=== PATIENT | female | born 1970 | race Caucasian/White ===

== ENCOUNTER 2023-04-17 14:50 | Outpatient (CLI) | payer BC, SELFPAY | END 2023-04-17 14:51 | disposition home or self-care (01) | PROVIDERS: PCP Family Medicine; Visit Provider Family Medicine | DX: Z00.00 Encounter for general adult medical examination without abnormal findings (principal); E03.9 Hypothyroidism, unspecified; D64.9 Anemia, unspecified; G89.29 Other chronic pain; Z13.6 Encounter for screening for cardiovascular disorders | CPT/HCPCS: 80053; 80061; 84443 ==

== ENCOUNTER 2023-05-07 13:27 | Outpatient (CLI) | payer BC, SELFPAY | END 2023-05-07 13:28 | disposition home or self-care (01) | LOC: NFLDREF 05-08 18:29 | PROVIDERS: PCP Family Medicine; Referring Provider Family Medicine; Visit Provider Family Medicine | DX: Z13.6 Encounter for screening for cardiovascular disorders (principal); Z13.1 Encounter for screening for diabetes mellitus | CPT/HCPCS: 80061 ==

== ENCOUNTER 2023-08-28 13:25 | Outpatient (CLI) | payer BC, SELFPAY | END 2023-08-28 13:26 | disposition home or self-care (01) | PROVIDERS: PCP Family Medicine; Visit Provider Family Medicine | DX: E03.9 Hypothyroidism, unspecified (principal); R53.83 Other fatigue; N95.1 Menopausal and female climacteric states | CPT/HCPCS: 84146; 84443 ==

== ENCOUNTER 2023-09-07 14:28 | Emergency (ER) | payer BC, SELFPAY ==
[2023-09-07 14:32] VITALS: BP 135/86; PULSE 79; RESP 18; TEMP 36.4; O2SAT 99; BMI 21.9
--- NOTE | 2023-09-07 15:10 | ED_ITS ---
HPI - General Adult General Date Seen: 09/07/23 Chief complaint: Ear/Nose/Throat Problem Stated complaint: Possible sinus infection Time Seen by Provider: 09/07/23 14:41 History of Present Illness HPI narrative: This is a 53-year-old female with a past medical history of pneumothorax as a 19-year-old, upper story infections, hyperlipidemia, osteoarthritis, asthma, anxiety, who presents to the ER today for facial pain, sinus drainage, sore throat, cough. She has been sick for about 8 or 10 days. She 1st had mild constitutional symptoms after she had her pneumonia shot, roughly 9 or 10 days ago. She has had mild upper respiratory symptoms after that. Beginning 3 days ago on , , she has had more serious sinus drainage, bilateral facial pain. Also a sore throat. She has had a couple of sores on the right side of her tongue. She has not had any high fever. She has had a cough. No vomiting or diarrhea. She had a negative at home coronavirus test. She has no known sick exposures. 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 He requires nearly round the clock care by her. She went to the emergency department at [facility] [place] on . They apparently did a check. They told her that she had wheezing in her left lung but that otherwise she was clear. They did a chest x-ray was negative for pneumonia. She was told that her symptoms are probably viral in that she should pursue supportive care. Since that visit she has had ongoing symptoms. She has developed right ear pain. She has worsening facial pain and increasing drainage from her sinuses. No epistaxis. No bad headache. No neck stiffness. No vomiting or diarrhea. No new rash. In the past she has had sinus infection similar to this and they have not gotten better with supportive care. She has required treat with antibiotics. She says in the past she has actually required 2 Z-Chuck to get better. Related Data Home Medications Medication Instructions Recorded Confirmed albuterol sulfate 90 mcg/actuation 2 inhalation PRN 11/27/22 08/28/23 aerosol inhaler aspirin 81 mg tablet,delayed 162 mg PO QDAY 07/25/23 09/07/23 release (Adult Low Dose Aspirin) Previous Rx's Medication Instructions Recorded valacyclovir 1 gram tablet 1,000 mg PO QDAY 90 days #90 tabs 04/17/23 levothyroxine 50 mcg tablet 50 mcg PO QDAY #90 tabs 04/18/23 estradiol 1 mg tablet See Rx Instructions PO QDAY #30 08/28/23 tabs pregabalin 25 mg capsule 25 mg PO QDAY #30 caps 08/28/23 Allergies Allergy/AdvReac Type Severity Reaction Status Date / Time No Known Drug Allergies Allergy Verified 08/28/23 13:07 [facility] Medical History (Updated 09/07/23 @ 15:10 by Alfonso Light MD) Polyp of colon ?K63.5 - Polyp of colon (ICD-10) Chest pain ?R07.9 - Chest pain, unspecified (ICD-10) Primary osteoarthritis, right wrist ?M19.031 - Primary osteoarthritis, right wrist (ICD-10) Encounter for pre-operative examination ?Z01.818 - Encounter for other preprocedural examination (ICD-10) Surgical History (Updated 07/10/23 @ 14:25 by Jalyn Ovalle) History of surgery on lower extremity (12/31/18) ?Z98.890 - Other specified postprocedural states (ICD-10) H/O arthroscopy of left knee ?Z98.890 - Other specified postprocedural states (ICD-10) S/P excisional debridement (01/06/06) ?Z98.890 - Other specified postprocedural states (ICD-10) History of total hysterectomy with bilateral salpingo-oophorectomy (BSO) (08/06/16) ?Z90.710 - Acquired absence of both cervix and uterus (ICD-10) ?Z90.722 - Acquired absence of ovaries, 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) ?Z90.79 - Acquired absence of other genital organ(s) (ICD-10) Status post wrist surgery (2018) ?Z98.890 - Other specified postprocedural states (ICD-10) Status post arthroscopy of right knee ?Z98.890 - Other specified postprocedural states (ICD-10) Status post abdominoplasty (03/19/10) ?Z98.890 - Other specified postprocedural states (ICD-10) History of dilation and curettage (01/12/13) ?Z98.890 - Other specified postprocedural states (ICD-10) Family History (Updated 07/16/22 @ 14:18 by Diane Jiménez ~ PSR) Maternal Grandmother Stroke Diabetes Heart disease Mother Mental disor NEC oth dis Sister Mental disor NEC oth dis Social History (Updated 07/10/23 @ 14:12 by Toyin Braga ~ INDUSTRIAL REAL ESTATE AGENT, INDUSTRIAL REAL ESTATE AGENT) Narrative: Smoker 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 Smoking Status: Current every day smoker What tobacco products do you use: cigarettes Smoking packs per day: 0.5 Smoking cigarettes per day: 10.0 Do you use any of these nicotine containing products: None Second hand tobacco smoke exposure: No How often do you have a drink containing alcohol: 2-3 times a week How many standard drinks containing alcohol do you have on a typical day: 1 or 2 How often do you have six or more drinks on one occasion: Never AUDIT-C Alcohol total score: 3 Non-prescribed substance use: denies use Little interest or pleasure in doing things: nearly every day Feeling down, depressed, or hopeless: nearly every day service: No Exam Narrative: Exam Narrative: Constitutional: Appears well-developed and well-nourished. Alert. Conversant. Non toxic. HENT: Head: Atraumatic. No depressed skull fracture, Raccoon Eyes, Banks's sign, or hemotympanum. Face normal. Right ear: Canal normal. Mastoid normal. There is a small amount of fluid behind the eardrum. The fluid is opaque but there is no erythema or bulging. TM appears retracted Left ear: Canal and mastoid normal. There is a small amount of clear fluid behind her eardrum. No erythema or bulging Nose: No purulent rhinorrhea. No epistaxis. She does appear to have inflamed mucosal linings in her sinuses. Mouth/Throat: Oral mucosa is clear and moist. no trismus. Pharynx normal. Tonsils symmetric. No tonsillar enlargement, erythema, or exudate. She has a couple small vesicles along the right lateral border of her tongue. Eyes: Conjunctivae normal. EOM normal. Pupils equal, round, and reactive to light. No scleral icterus. Neck: Normal range of motion. Neck supple. No tracheal deviation present. Cardiovascular: Normal rate, regular rhythm. No gallop. No friction rub. No murmur heard. Symmetric radial artery pulses Pulmonary/Chest: Occasional cough. Effort normal. No stridor. No respiratory distress. No wheezes. No rales. No rhonchi . No tenderness. Abdominal: Soft. No distension. No mass. No tenderness. No rebound. No guarding. Musculoskeletal: RUE: Normal range of motion. No tenderness. No deformity LUE: Normal range of motion. No tenderness. No deformity RLE: Normal range of motion. No edema. No tenderness. No deformity LLE: Normal range of motion. No edema. No tenderness. No deformity Lymph: No cervical adenopathy. Neurological: Alert and oriented to person, place, and time. Normal strength. CN II-VII intact. No sensory deficit. GCS eye subscore is 4. GCS verbal subscore is 5. GCS motor subscore is 6. Normal coordination Skin: Skin is warm and dry. No rash noted. No pallor. Normal capillary refill. Psychiatric: Normal mood. Normal affect. Const: Vital Signs, click to edit/add: Vital Signs - 24 hr 09/07/23 14:32 Temperature 97.6 F Pulse Rate [Pulse Oximeter] 79 Respiratory Rate 18 Blood [facility] 135/86 Pulse Oximetry 99 Oxygen Delivery Me thod Room Air Course Vital Signs Vital signs: Initial Vital Signs Temperature 97.6 F 09/07/23 14:32 Temperature Source Temporal Artery Scan 09/07/23 14:32 Pulse Rate 79 09/07/23 14:32 Respiratory Rate 18 09/07/23 14:32 Blood Pressure 135/86 09/07/23 14:32 Blood Pressure Mean 102 09/07/23 14:32 Blood Pressure Position Sitting 09/07/23 14:32 Pulse Oximetry 99 09/07/23 14:32 Oxygen Delivery Method Room Air 09/07/23 14:32 Vital Signs Temperature 97.6 F 09/07/23 14:32 Pulse Rate 79 09/07/23 14:32 Respiratory Rate 18 09/07/23 14:32 Blood Pressure 135/86 09/07/23 14:32 Pulse Oximetry 99 09/07/23 14:32 Oxygen Delivery Method Room Air 09/07/23 14:32 Temperature 97.6 F 09/07/23 14:32 Pulse Rate 79 09/07/23 14:32 Respiratory Rate 18 09/07/23 14:32 Blood Pressure 135/86 09/07/23 14:32 Pulse Oximetry 99 09/07/23 14:32 Oxygen Delivery Method Room Air 09/07/23 14:32 Medical Decision Making MDM Narrative Medical decision making narrative: This patient presented with signs and symptoms of upper respiratory infection and possible sinusitis. She has already had negative coronavirus testing. She had a negative chest x-ray for pneumonia 3 days ago, on . Her nasal and facial symptoms are worsening since then. Based on history and exam, I feel the cause of sinusitis is most likely bacterial. Antibiotics are indicated due to severity of symptoms at the onset of illness and acute worsening of symptoms. Evaluation today did not show signs of intracranial complication of sinusitis, facial cellulitis or fungal sinusitis. Patient has normal mental status, no proptosis, periorbital edema, CN palsy. No immunosuprression. 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 Fortunately he is not sick. We will treat her with a course of antibiotics-doxycycline 100 mg b.i.d. for 10 days prescribed through [facility]. She says in the past she has done well with Azithromycin. However given current resistance patterns, would hold off on Z- Chuck. The patient was given instructions to follow up with primary care in 3-5 days. Instructions for symptomatic care were discussed. Precautions for return to the ER reviewed. Discharge Plan Discharge Clinical Impression: Acute middle ear effusion, URI (upper respiratory infection), Sinusitis Patient Disposition: Home, Self-Care Condition: Stable Instructions: Sinusitis (ED), Upper Respiratory Infection (ED) Additional Instructions: As we discussed, please come back to the ER right away if you have worsening symptoms especially trouble breathing, chest pain, high fever, severe headache, vomiting, or any concerns. If you not completely improved within 2-3 days, please return to the ER or see your doctor for recheck. Prescriptions: No Action valacyclovir 1 gram tablet 1,000 mg PO QDAY 90 Days Qty: 90 1RF Rx Instructions: For treatment of suppression estradiol 1 mg tablet See Rx Instructions PO QDAY Qty: 30 1RF Rx Instructions: take 0.5mg daily x 2wks, if significant symptoms continue, increase to 1mg daily pregabalin 25 mg capsule 25 mg PO QDAY Qty: 30 1RF albuterol sulfate 90 mcg/actuation HFA aerosol inhaler 2 inhalation PRN aspirin [Adult Low Dose Aspirin] 81 mg tablet,delayed release (DR/EC) 162 mg PO QDAY levothyroxine 50 mcg tablet 50 mcg PO QDAY Qty: 90 1RF Follow Up/Referrals: Ashley Moreno DO [Primary Care Provider] - Stand Alone Forms: [employer] Info Instructions
== END 2023-09-07 15:30 | disposition home or self-care (01) ==
LOC: ED 15:29
PROVIDERS: Emergency Provider Emergency Medicine; PCP Family Medicine
DX: H92.03 Otalgia, bilateral (principal); J06.9 Acute upper respiratory infection, unspecified; J32.9 Chronic sinusitis, unspecified
CPT/HCPCS: 99282; 99283

== ENCOUNTER 2023-09-11 14:31 | Emergency (ER) | payer BC, SELFPAY ==
[2023-09-11 14:39] VITALS: BP 106/76; PULSE 94; RESP 18; TEMP 36.7; O2SAT 97; BMI 22.6
--- NOTE | 2023-09-11 14:56 | ED.GENADULT ---
HPI - General Adult General Time Seen by Provider: 14:56 Date Seen: 09/11/23 Chief complaint: Ear/Nose/Throat Problem Stated complaint: Sinus/upper respiratory infection, chest tightness Time Seen by Provider: 09/11/23 14:41 Source: patient Mode of arrival: ambulatory Limitations: no limitations History of Present Illness HPI narrative: Pily is a 53-year-old female past medical history includes osteoarthritis, hyperlipidemia, hypothyroidism, anxiety, palpitations presents emergency department via private car with sinus-upper respiratory infection. Patient states symptoms have been ongoing since August 19, this includes headache, sinus congestion, postnasal drip, ear pain and sore throat. She did not take any COVID test at home. She was seen emerged department at [facility] for some left-sided chest pain associated with her symptoms, chest x-ray was clear. Patient does have a history of a pneumothorax when she was 19 years of age. She was seen here again on 09/07, placed on doxycycline 100 mg b.i.d. for her related symptoms. Middle ear effusion and sinus infection, previously she has to take Azithromycin to clear symptoms. She continues have this intermittent left-sided chest pain. She had the pain when she was seen at [facility] on . She does have follow-up with Cardiology, where a Holter monitor, and further testing. This atypical chest pain has been going on for the last 3-4 months. Nonpleuritic. She does have associated shortness of breath and a mild cough which is nonproductive, she denies any fevers or chills. 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 Patient has minimal time to stay in the emergency department since her daughter is watching her . Related Data Home Medications Medication Instructions Recorded Confirmed albuterol sulfate 90 mcg/actuation 2 inhalation PRN 11/27/22 08/28/23 aerosol inhaler aspirin 81 mg tablet,delayed 162 mg PO QDAY 07/25/23 09/07/23 release (Adult Low Dose Aspirin) Previous Rx's Medication Instructions Recorded valacyclovir 1 gram tablet 1,000 mg PO QDAY 90 days #90 tabs 04/17/23 levothyroxine 50 mcg tablet 50 mcg PO QDAY #90 tabs 04/18/23 estradiol 1 mg tablet See Rx Instructions PO QDAY #30 08/28/23 tabs pregabalin 25 mg capsule 25 mg PO QDAY #30 caps 08/28/23 Allergies Allergy/AdvReac Type Severity Reaction Status Date / Time No Known Drug Allergies Allergy Verified 08/28/23 13:07 Review of Systems Status of ROS: Reports: 10 or more systems reviewed and unremarkable except as noted in History and below [facility] Medical History Polyp of colon ?K63.5 - Polyp of colon (ICD-10) Chest pain ?R07.9 - Chest pain, unspecified (ICD-10) Primary osteoarthritis, right wrist ?M19.031 - Primary osteoarthritis, right wrist (ICD-10) Encounter for pre-operative examination ?Z01.818 - Encounter for other preprocedural examination (ICD-10) Surgical History (Updated 07/10/23 @ 14:25 by Jalyn Ovalle) History of surgery on lower extremity (12/31/18) ?Z98.890 - Other specified postprocedural states (ICD-10) H/O arthroscopy of left knee ?Z98.890 - Other specified postprocedural states (ICD-10) S/P excisional debridement (01/06/06) ?Z98.890 - Other specified postprocedural states (ICD-10) History of total hysterectomy with bilateral salpingo-oophorectomy (BSO) (08/06/16) ?Z90.710 - Acquired absence of both cervix and uterus (ICD-10) ?Z90.722 - Acquired absence of ovaries, 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) ?Z90.79 - Acquired absence of other genital organ(s) (ICD-10) Status post wrist surgery (2018) ?Z98.890 - Other specified postprocedural states (ICD-10) Status post arthroscopy of right knee ?Z98.890 - Other specified postprocedural states (ICD-10) Status post abdominoplasty (03/19/10) ?Z98.890 - Other specified postprocedural states (ICD-10) History of dilation and curettage (01/12/13) ?Z98.890 - Other specified postprocedural states (ICD-10) Family History (Updated 10/04/22 @ 14:18 by Diane Karels ~ PSR) Maternal Grandmother Stroke Diabetes Heart disease Mother Mental disor NEC oth dis Sister Mental disor NEC oth dis Social History (Updated 07/10/23 @ 14:12 by Toyin Braga ~ ASPHALT COATER, ASPHALT [employer]ATER) Narrative: 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 Smoking Status: Current every day smoker What tobacco products do you use: cigarettes Smoking packs per day: 0.5 Smoking cigarettes per day: 10.0 Do you use any of these nicotine containing products: None Second hand tobacco smoke exposure: No How often do you have a drink containing alcohol: 2-3 times a week How many standard drinks containing alcohol do you have on a typical day: 1 or 2 How often do you have six or more drinks on one occasion: Never AUDIT-C Alcohol total score: 3 Non-prescribed substance use: denies use Little interest or pleasure in doing things: nearly every day Feeling down, depressed, or hopeless: nearly every day service: No Exam Narrative: Exam Narrative: General: No obvious distress sitting comfortably HEENT: Tympanic membranes within normal limits bilaterally, oropharynx, shows mild post oropharyngeal erythema, no exudate, uvula midline No submandibular adenopathy. Nares are clear, turbinates show mild inflammation. Rhinorrhea is clear. Neck: Supple full range of motion Lungs: Clear to auscultation bilaterally, no stridor, wheezing, no rales or rhonchi, no increased work of breathing Heart; normal sinus rhythm, S1-S2 Abdomen: Soft nontender Muscle skeletal: Nontender to palpation left anterior chest Neuro: Alert awake and oriented x3 Const: Vital Signs, click to edit/add: Vital Signs - 24 hr 09/11/23 14:39 Temperature 98.1 F Pulse Rate [Pulse Oximeter] 94 Respiratory Rate 18 Blood Pressure [Ri ght Upper Arm] 106/76 Pulse Oximetry 97 Oxygen Delivery Me thod Room Air Course Course ED Course: AIDET performed. Vitals are stable at this time, workup will includes COVID/influenza A/B/RSV nasopharyngeal swab, patient has atypical chest pain is chronic, however did offer a repeat chest x-ray, EKG and point of care troponinI, patient declined at this time due to time constraints, risks explained she understands, she has proper follow-up with Cardiology, she has responded better with azithromycin in the past for her upper respiratory symptoms and sinusitis. Differential diagnosis include viral upper respiratory illness, pneumonia, strep throat illness, bronchitis, asthma, reactive airway disease, chronic cough, medication side effects, sinusitis, allergic rhinitis, GERD, as well as all etiologies. Reevaluation(s) Time of Reevaluation #1: 15:40 Reevaluation #1: Viral nasopharyngeal swabs are negative, prescription for azithromycin(Z-chuck) sent to her pharmacy with a refill, she should follow up with her primary care provider in the next 7-10 days and cardiology as scheduled, return precautions given. Vital Signs Vital signs: Initial Vital Signs Temperature 98.1 F 09/11/23 14:39 Temperature Source Temporal Artery Scan 09/11/23 14:39 Pulse Rate 94 09/11/23 14:39 Pulse Rhythm Regular 09/11/23 14:39 Respiratory Rate 18 09/11/23 14:39 Blood Pressure 106/76 09/11/23 14:39 Blood Pressure Mean 86 09/11/23 14:39 Blood Pressure Position Sitting 09/11/23 14:39 Pulse Oximetry 97 09/11/23 14:39 Oxygen Delivery Method Room Air 09/11/23 14:39 Vital Signs Temperature 98.1 F 09/11/23 14:39 Pulse Rate 94 09/11/23 14:39 Respiratory Rate 18 09/11/23 14:39 Blood Pressure 106/76 09/11/23 14:39 Pulse Oximetry 97 09/11/23 14:39 Oxygen Delivery Method Room Air 09/11/23 14:39 Temperature 98.1 F 09/11/23 14:39 Pulse Rate 94 09/11/23 14:39 Respiratory Rate 18 09/11/23 14:39 Blood Pressure 106/76 09/11/23 14:39 Pulse Oximetry 97 09/11/23 14:39 Oxygen Delivery Method Room Air 09/11/23 14:39 Discharge Plan Discharge Clinical Impression: Sinus congestion, Upper respiratory infection Patient Disposition: Home, Self-Care Condition: Improved Instructions: Upper Respiratory Infection (ED), Cold Symptoms (ED) Additional Instructions: To take azithromycin(Z-Chuck) over the next 5 days as instructed, can repeat using refill sent to the pharmacy, stop the Doxycycline, can use [id number] Afrin 1-2 sprays per nostril for nasal congestion over the next few days, to follow-up with primary care provider as scheduled. Return if worsening symptoms. Activity Level: No Restrictions Prescriptions: No Action valacyclovir 1 gram tablet 1,000 mg PO QDAY 90 Days Qty: 90 1RF Rx Instructions: For treatment of suppression estradiol 1 mg tablet See Rx Instructions PO QDAY Qty: 30 1RF Rx Instructions: take 0.5mg daily x 2wks, if significant symptoms continue, increase to 1mg daily pregabalin 25 mg capsule 25 mg PO QDAY Qty: 30 1RF albuterol sulfate 90 mcg/actuation HFA aerosol inhaler 2 inhalation PRN aspirin [Adult Low Dose Aspirin] 81 mg tablet,delayed release (DR/EC) 162 mg PO QDAY levothyroxine 50 mcg tablet 50 mcg PO QDAY Qty: 90 1RF Follow Up/Referrals: Ashley Moreno DO [Primary Care Provider] - Stand Alone Forms: [employer] Info Instructions
[2023-09-11 15:35] LABS: PCR FLU A Negative PCR FLU A (Negative); PCR FLU B Negative PCR FLU B (Negative); PCR RSV Negative PCR RSV (Negative)
[2023-09-11 15:36] LABS: SARS PCR* Negative SARS-CoV-2 (Negative)
== END 2023-09-11 16:04 | disposition home or self-care (01) ==
LOC: ED 15:38
PROVIDERS: Emergency Provider Student in an Organized Health Care Education/Training Program; PCP Family Medicine
DX: J06.9 Acute upper respiratory infection, unspecified (principal); J34.89 Other specified disorders of nose and nasal sinuses
CPT/HCPCS: 87631; 99283; 99284

== ENCOUNTER 2023-10-03 08:00 | Outpatient (CLI) | payer BC, SELFPAY | END 2023-10-03 08:01 | disposition home or self-care (01) | LOC: NFLDREF 10-05 23:53 | PROVIDERS: PCP Family Medicine; Referring Provider Family Medicine; Visit Provider Family Medicine | DX: R19.7 Diarrhea, unspecified (principal) | CPT/HCPCS: 87045; 87046; 87427 ==

== ENCOUNTER 2023-12-15 13:30 | Outpatient (CLI) | payer BC, SELFPAY ==
--- NOTE | 2023-12-15 13:40 | MM_ITS ---
Patient: OSVALDO SANTOS Facility:?[facility] Patient ID:?[id number] Site Patient ID:?[id number]. Site :?[id number] Study:?XRay-Breast Bilateral 3D W/CAD-12/15/2023 2:16:53 PM Ordering Physician:?Amna Jones Final Report: BILATERAL SCREENING MAMMOGRAM WITH COMPUTER-AIDED DETECTION AND TOMOSYNTHESIS TECHNIQUE: CC and MLO views were obtained. These mammographic images have been obtained using full-field digital technique. These mammographic images were interpreted with the benefit of computer-aided detection. Breast Tomosynthesis was used in this interpretation. COMPARISON FILM: 08/07/17, 12/03/12, 04/20/10. FINDINGS: The breasts are extremely dense, which lowers the sensitivity of mammography. IMPRESSION: There is no radiographic evidence for malignancy. ASSESSMENT: BI-RADS Category 1: Negative RECOMMENDATION: Routine screening mammogram in 1 year. A lay language report of this examination will be provided to the patient. Dom Rivas M.D. Diagnostic Radiologist [email or web address] DSM/sp R& Transcribed: 6:50 p.m. SP/Dictated by: Dom Rivas MD @ 12/16/2023 9:14:00 AM Signed by:?Dom Rivas MD @12/17/2023 5:43:27 AM (Electronic Signature)
== END 2023-12-15 13:31 | disposition home or self-care (01) ==
LOC: MAMMO 13:31
PROVIDERS: PCP Family Medicine; Visit Provider Family Medicine
DX: Z12.31 Encounter for screening mammogram for malignant neoplasm of breast (principal); R92.2 Inconclusive mammogram
CPT/HCPCS: 77063; 77067

== ENCOUNTER 2023-12-27 14:56 | Emergency (ER) | payer BC, SELFPAY ==
[2023-12-27 15:09] VITALS: BP 181/89; PULSE 78; RESP 18; TEMP 36.3; O2SAT 98; BMI 21.9
--- NOTE | 2023-12-27 15:23 | XR_ITS ---
Patient: OSVALDO SANTOS Facility:?[facility] Patient ID:?[id number] Site Patient ID:?[id number]. Site :?[id number] Study:?XRay-Chest 2V-12/27/2023 3:50:14 PM Ordering Physician:DEBORA Final Report: INDICATION: Chest pain TECHNIQUE: Chest 2 views. COMPARISON: Chest x-ray 11/22/2019 FINDINGS: The heart is normal in size. The pulmonary vasculature is within normal limits. The lungs are clear without focal consolidation, pleural effusion or pneumothorax. The bones are unremarkable. IMPRESSION: No acute process. Dictated by Marybeth Campos MD @ 12/27/2023 4:16:59 PM Dictated by: Marybeth Campos MD @ 12/27/2023 16:17:03 Signed by:?Marybeth Campos MD @12/27/2023 4:17:03 PM (Electronic Signature)
--- NOTE | 2023-12-27 15:25 | ED_ITS ---
HPI - General Adult General Date Seen: 12/27/23 <Rjartur Díazram - Last Filed: 12/27/23 16:33> Chief complaint: Chest Pain <Rj Diana Naranjo DO - Last Filed: 12/27/23 16:33> Stated complaint: irregular heartbeat <Rj Naranjo DO - Last Filed: 12/27/23 16:33> Time Seen by Provider: 12/27/23 15:16 <Rj Naranjo DO - Last Filed: 12/27/23 16:33> Source: patient <Rj Naranjo DO - Last Filed: 12/27/23 16:33> Mode of arrival: ambulatory <Rjartur Naranjo - Last Filed: 12/27/23 16:33> Limitations: no limitations <Rj Naranjo DO - Last Filed: 12/27/23 16:33> History of Present Illness HPI narrative: Patient is a 53-year-old female presenting to the emergency department for any regular heart rate and chest pain. She states she has been having issues with irregular heart rate now for the several months. She has been seen Cardiology and had a where about heart monitor. 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 She then was told she needs to do an echo and has been working on getting that scheduled. She knows these past 2 nights she has been having worsening symptoms of these irregular heart rate. She now states thigh regular heart rate seems to have improved but she still is having this discomfort not left upper chest going up to her left neck. This has been going on all night. She was using a home pulse ox check her heart rate and she says it was up into the 130s last night. It has improved now. She does has some tingling sensation in her fingers in toes. Denies fevers, chills, shortness of breath, weakness, numbness, headache, vision changes, abdominal pain. No other concerns noted at this time. <Rj Naranjo DO - Last Filed: 12/27/23 16:33> Related Data Home medications: Home Medications Medication Instructions Recorded Confirmed albuterol sulfate 90 mcg/actuation 2 inhalation PRN 11/27/22 10/16/23 aerosol inhaler aspirin 81 mg tablet,delayed 81 mg PO QDAY 10/02/23 10/16/23 release (Adult Low Dose Aspirin) Previous Rx's Medication Instructions Recorded valacyclovir 1 gram tablet 1,000 mg PO QDAY 90 days #90 tabs 04/17/23 pregabalin 25 mg capsule 25 mg PO QDAY #30 caps 08/28/23 estradiol 1 mg tablet 1 mg PO QDAY #90 tabs 11/10/23 <Rj Naranjo DO - Last Filed: 12/27/23 16:33> Allergies/adverse reactions: Allergies Allergy/AdvReac Type Severity Reaction Status Date / Time No Known Drug Allergies Allergy Verified 10/16/23 13:44 <Rj Naranjo DO - Last Filed: 12/27/23 16:33> Review of Systems Status of ROS: Reports: 10 or more systems reviewed and unremarkable except as noted in History and below <Rj Naranjo DO - Last Filed: 12/27/23 16:33> [facility] Medical History: Medical History Polyp of colon ?K63.5 - Polyp of colon (ICD-10) Chest pain ?R07.9 - Chest pain, unspecified (ICD-10) Primary osteoarthritis, right wrist ?M19.031 - Primary osteoarthritis, right wrist (ICD-10) Encounter for pre-operative examination ?Z01.818 - Encounter for other preprocedural examination (ICD-10) <Rj Naranjo DO - Last Filed: 12/27/23 16:33> Surgical History: Surgical History History of hand surgery ?Z98.890 - Other specified postprocedural states (ICD-10) History of surgery on lower extremity (12/31/18) ?Z98.890 - Other specified postprocedural states (ICD-10) H/O arthroscopy of left knee ?Z98.890 - Other specified postprocedural states (ICD-10) S/P excisional debridement (01/06/06) ?Z98.890 - Other specified postprocedural states (ICD-10) History of total hysterectomy with bilateral salpingo-oophorectomy (BSO) (08/06/16) ?Z90.710 - Acquired absence of both cervix and uterus (ICD-10) ?Z90.722 - Acquired absence of ovaries, 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) ?Z90.79 - Acquired absence of other genital organ(s) (ICD-10) Status post wrist surgery (2018) ?Z98.890 - Other specified postprocedural states (ICD-10) Status post arthroscopy of right knee ?Z98.890 - Other specified postprocedural states (ICD-10) Status post abdominoplasty (03/19/10) ?Z98.890 - Other specified postprocedural states (ICD-10) History of dilation and curettage (01/12/13) ?Z98.890 - Other specified postprocedural states (ICD-10) <Rj Naranjo DO - Last Filed: 12/27/23 16:33> Family History: Family History Maternal Grandmother Stroke Diabetes Heart disease Mother Mental disor NEC oth dis Sister Mental disor NEC oth dis <Rj Naranjo DO - Last Filed: 12/27/23 16:33> Social History: Social History Narrative: 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 Smoking Status: Current every day smoker What tobacco products do you use: cigarettes Smoking packs per day: 0.5 Smoking cigarettes per day: 10.0 Do you use any of these nicotine containing products: None Second hand tobacco smoke exposure: No How often do you have a drink containing alcohol: 2-3 times a week How many standard drinks containing alcohol do you have on a typical day: 1 or 2 How often do you have six or more drinks on one occasion: Never AUDIT-C Alcohol total score: 3 Non-prescribed substance use: denies use Little interest or pleasure in doing things: nearly every day Feeling down, depressed, or hopeless: nearly every day service: No <Rj Naranjo DO - Last Filed: 12/27/23 16:33> Exam Narrative: Exam Narrative: Const: Well-nourished, Well-developed, in mild distress Eyes: PERRL, no conjunctival injection, and symmetrical lids HENT: Atraumatic external nose and ears. Moist mucous membranes. Neck: Symmetric, trachea midline, No thyromegaly. CVS: RRR, No murmurs or gallops. Peripheral pulses 2+ and equal in all extremities RESP: Unlabored respiratory effort. Clear to auscultation bilaterally. GI: Nontender/Nondistended, No rebound or guarding. MSK:Extremities w/o deformity, Normal Active ROM Skin: Warm, Dry. No rashes or lesions. Neuro: Normal Muscle tone, No focal neurological deficits. Psych: Awake, Alert, & Oriented x3. Appropriate mood and affect. <Rj Naranjo DO - Last Filed: 12/27/23 16:33> Const: Vital Signs, click to edit/add: Vital Signs - 24 hr 12/27/23 15:09 Temperature 97.4 F L Pulse Rate [Right Pulse Oximeter] 78 Respiratory Rate 18 Blood Pressure [Ri ght Upper Arm] 181/89 H Pulse Oximetry 98 Oxygen Delivery Me thod Room Air <Rj Naranjo DO - Last Filed: 12/27/23 16:33> Vital Signs, click to edit/add: Vital Signs - 24 hr 12/27/23 15:09 Temperature 97.4 F L Pulse Rate [Right Pulse Oximeter] 78 Respiratory Rate 18 Blood Pressure [Ri ght Upper Arm] 181/89 H Pulse Oximetry 98 Oxygen Delivery Me thod Room Air <Chika Galvin MD - Last Filed: 12/27/23 17:40> Course Course ED Course: I was asked to follow-up on the patient's repeat troponin which was 0. Patient discharged. <Chika Galvin MD - Last Filed: 12/27/23 17:40> Vital Signs Vital signs: Initial Vital Signs Temperature 97.4 F L 12/27/23 15:09 Temperature Source Temporal Artery Scan 12/27/23 15:09 Pulse Rate 78 12/27/23 15:09 Respiratory Rate 18 12/27/23 15:09 Blood Pressure 181/89 H 12/27/23 15:09 Blood Pressure Mean 119 H 12/27/23 15:09 Blood Pressure Position Sitting 12/27/23 15:09 Pulse Oximetry 98 12/27/23 15:09 Oxygen Delivery Method Room Air 12/27/23 15:09 Vital Signs Temperature 97.4 F L 12/27/23 15:09 Pulse Rate 78 12/27/23 15:09 Respiratory Rate 18 12/27/23 15:09 Blood Pressure 181/89 H 12/27/23 15:09 Pulse Oximetry 98 12/27/23 15:09 Oxygen Delivery Method Room Air 12/27/23 15:09 Temperature 97.4 F L 12/27/23 15:09 Pulse Rate 78 12/27/23 15:09 Respiratory Rate 18 12/27/23 15:09 Blood Pressure 181/89 H 12/27/23 15:09 Pulse Oximetry 98 12/27/23 15:09 Oxygen Delivery Method Room Air 12/27/23 15:09 <Rj Naranjo DO - Last Filed: 12/27/23 16:33> Initial Vital Signs Temperature 97.4 F L 12/27/23 15:09 Temperature Source Temporal Artery Scan 12/27/23 15:09 Pulse Rate 78 12/27/23 15:09 Respiratory Rate 18 12/27/23 15:09 Blood Pressure 181/89 H 12/27/23 15:09 Blood Pressure Mean 119 H 12/27/23 15:09 Blood Pressure Position Sitting 12/27/23 15:09 Pulse Oximetry 98 12/27/23 15:09 Oxygen Delivery Method Room Air 12/27/23 15:09 Vital Signs Temperature 97.4 F L 12/27/23 15:09 Pulse Rate 78 12/27/23 15:09 Respiratory Rate 18 12/27/23 15:09 Blood Pressure 181/89 H 12/27/23 15:09 Pulse Oximetry 98 12/27/23 15:09 Oxygen Delivery Method Room Air 12/27/23 15:09 Temperature 97.4 F L 12/27/23 15:09 Pulse Rate 78 12/27/23 15:09 Respiratory Rate 18 12/27/23 15:09 Blood Pressure 181/89 H 12/27/23 15:09 Pulse Oximetry 98 12/27/23 15:09 Oxygen Delivery Method Room Air 12/27/23 15:09 <Chika Galvin MD - Last Filed: 12/27/23 17:40> Medical Decision Making MDM Narrative Medical decision making narrative: Patient is a 53 old female presenting to emergency department for chest pain and a rapid heart rate. She states was in the 130s at home which was seen on a pulse ox so this is likely accurate. She still having some chest pain that started last night the same time as the rapid heart rate. Does not have any short of breath. PE seems unlikely but I will evaluate her for ACS and heart arrhythmias. Will order a CBC, BMP, magnesium, COVID/flu/RSV, troponin, EKG. EKG showed no concerning findings. Troponin within normal limits. CBC, magnesium, BMP shows no concerning findings. Chest x-ray reviewed by myself and the radiologist shows no concerning findings. She is not currently appear to be Having any irregular heart rate and her lab work so far has been reassuring. We will repeat her troponin and wait for the COVID/flu/RSV to return. Patient signed out to my colleague Dr. Galvin. Expected disposition is to be discharged home. <Rj Naranjo DO - Last Filed: 12/27/23 16:33> Lab Data Labs: Lab Results 12/27/23 12/27/23 12/27/23 Range/Units 15:23 16:00 17:22 WBC 8.37 (4.50-11.00) K/uL RBC 3.86 L (4.00-5.20) m/uL Hgb 13.4 (12.0-16.0) gm/dL Hct 39.3 (33.0-51.0) % MCV 102 H (80-100) fL MCH 35 H (26-34) pg MCHC 34 (32-36) gm/dL RDW Coeff of Joselito 12.5 (11.5-15.5) % Plt Count 282 (140-440) K/uL Neut % (Auto) 59.1 (42.0-72.0) % Lymph % (Auto) 30.6 (20-44) % [place] % (Auto) 6.3 (0.0-11.0) % Eos % (Auto) 3.7 (0.0-7.0) % Baso % (Auto) 0.2 (0.0-3.0) % Neut # (Auto) 4.94 (1.7-7.0) K/uL Lymph # (Auto) 2.56 (0.90-2.90) K/uL [place] # (Auto) 0.50 (0.00-0.90) K/UL Eos # (Auto) 0.31 (0.00-0.50) K/uL Baso # (Auto) 0.02 (0.00-0.30) K/uL Abs Immat Gran (auto) 0.01 (0.00-0.30) K/uL Imm/Tot Granulo (auto) 0.1 % Sodium 135 (135-149) mmol/L Potassium 4.2 (3.6-5.1) mmol/L Chloride 107 (96-114) mmol/L Carbon Dioxide 21 (20-32) mmol/L Anion Gap 7 (7-15) mEq/L BUN 19 (7-30) mg/dL Creatinine 0.6 (0.5-1.5) mg/dL Estimated Creat Clear 105.45 Estimated GFR 107 ml/min Glucose 95 (60-115) mg/dL Calcium 9.4 (8.4-10.6) mg/dL Magnesium 2.1 (1.5-2.6) mg/dL SARS-CoV-2 (PCR) (Negative) Influenza Type A (PCR) (Negative) Influenza Type B (PCR) (Negative) RSV (PCR) (Negative) POC Troponin I 0.00 L 0.00 L (0.01-0.04) ng/ml 12/27/23 Range/Units Unknown WBC (4.50-11.00) K/uL RBC (4.00-5.20) m/uL Hgb (12.0-16.0) gm/dL Hct (33.0-51.0) % MCV (80-100) fL MCH (26-34) pg MCHC (32-36) gm/dL RDW Coeff of Joselito (11.5-15.5) % Plt Count (140-440) K/uL Neut % (Auto) (42.0-72.0) % Lymph % (Auto) (20-44) % [place] % (Auto) (0.0-11.0) % Eos % (Auto) (0.0-7.0) % Baso % (Auto) (0.0-3.0) % Neut # (Auto) (1.7-7.0) K/uL Lymph # (Auto) (0.90-2.90) K/uL [place] # (Auto) (0.00-0.90) K/UL Eos # (Auto) (0.00-0.50) K/uL Baso # (Auto) (0.00-0.30) K/uL Abs Immat Gran (auto) (0.00-0.30) K/uL Imm/Tot Granulo (auto) % Sodium (135-149) mmol/L Potassium (3.6-5.1) mmol/L Chloride (96-114) mmol/L Carbon Dioxide (20-32) mmol/L Anion Gap (7-15) mEq/L BUN (7-30) mg/dL Creatinine (0.5-1.5) mg/dL Estimated Creat Clear Estimated GFR ml/min Glucose (60-115) mg/dL Calcium (8.4-10.6) mg/dL Magnesium (1.5-2.6) mg/dL SARS-CoV-2 (PCR) Negative SARS-CoV-2 (Negative) Influenza Type A (PCR) Negative PCR FLU A (Negative) Influenza Type B (PCR) Negative PCR FLU B (Negative) RSV (PCR) Negative PCR RSV (Negative) POC Troponin I (0.01-0.04) ng/ml <Rj Naranjo, DO - Last Filed: 12/27/23 16:33> Lab Results 12/27/23 12/27/23 12/27/23 Range/Units 15:23 16:00 17:22 WBC 8.37 (4.50-11.00) K/uL RBC 3.86 L (4.00-5.20) m/uL Hgb 13.4 (12.0-16.0) gm/dL Hct 39.3 (33.0-51.0) % MCV 102 H (80-100) fL MCH 35 H (26-34) pg MCHC 34 (32-36) gm/dL RDW Coeff of Joselito 12.5 (11.5-15.5) % Plt Count 282 (140-440) K/uL Neut % (Auto) 59.1 (42.0-72.0) % Lymph % (Auto) 30.6 (20-44) % [place] % (Auto) 6.3 (0.0-11.0) % Eos % (Auto) 3.7 (0.0-7.0) % Baso % (Auto) 0.2 (0.0-3.0) % Neut # (Auto) 4.94 (1.7-7.0) K/uL Lymph # (Auto) 2.56 (0.90-2.90) K/uL [place] # (Auto) 0.50 (0.00-0.90) K/UL Eos # (Auto) 0.31 (0.00-0.50) K/uL Baso # (Auto) 0.02 (0.00-0.30) K/uL Abs Immat Gran (auto) 0.01 (0.00-0.30) K/uL Imm/Tot Granulo (auto) 0.1 % Sodium 135 (135-149) mmol/L Potassium 4.2 (3.6-5.1) mmol/L Chloride 107 (96-114) mmol/L Carbon Dioxide 21 (20-32) mmol/L Anion Gap 7 (7-15) mEq/L BUN 19 (7-30) mg/dL Creatinine 0.6 (0.5-1.5) mg/dL Estimated Creat Clear 105.45 Estimated GFR 107 ml/min Glucose 95 (60-115) mg/dL Calcium 9.4 (8.4-10.6) mg/dL Magnesium 2.1 (1.5-2.6) mg/dL SARS-CoV-2 (PCR) (Negative) Influenza Type A (PCR) (Negative) Influenza Type B (PCR) (Negative) RSV (PCR) (Negative) POC Troponin I 0.00 L 0.00 L (0.01-0.04) ng/ml 12/27/23 Range/Units Unknown WBC (4.50-11.00) K/uL RBC (4.00-5.20) m/uL Hgb (12.0-16.0) gm/dL Hct (33.0-51.0) % MCV (80-100) fL MCH (26-34) pg MCHC (32-36) gm/dL RDW Coeff of Joselito (11.5-15.5) % Plt Count (140-440) K/uL Neut % (Auto) (42.0-72.0) % Lymph % (Auto) (20-44) % [place] % (Auto) (0.0-11.0) % Eos % (Auto) (0.0-7.0) % Baso % (Auto) (0.0-3.0) % Neut # (Auto) (1.7-7.0) K/uL Lymph # (Auto) (0.90-2.90) K/uL [place] # (Auto) (0.00-0.90) K/UL Eos # (Auto) (0.00-0.50) K/uL Baso # (Auto) (0.00-0.30) K/uL Abs Immat Gran (auto) (0.00-0.30) K/uL Imm/Tot Granulo (auto) % Sodium (135-149) mmol/L Potassium (3.6-5.1) mmol/L Chloride (96-114) mmol/L Carbon Dioxide (20-32) mmol/L Anion Gap (7-15) mEq/L BUN (7-30) mg/dL Creatinine (0.5-1.5) mg/dL Estimated Creat Clear Estimated GFR ml/min Glucose (60-115) mg/dL Calcium (8.4-10.6) mg/dL Magnesium (1.5-2.6) mg/dL SARS-CoV-2 (PCR) Negative SARS-CoV-2 (Negative) Influenza Type A (PCR) Negative PCR FLU A (Negative) Influenza Type B (PCR) Negative PCR FLU B (Negative) RSV (PCR) Negative PCR RSV (Negative) POC Troponin I (0.01-0.04) ng/ml <Chika Galvin MD - Last Filed: 12/27/23 17:40> Imaging Data Chest x-ray: Attestation: I have reviewed the pertinent imaging results. <Rj Naranjo DO - Last Filed: 12/27/23 16:33> Radiologist's impression: No acute process. Dictated by Marybeth Campos MD @ 12/27/2023 4:16:59 PM <Rj Naranjo DO - Last Filed: 12/27/23 16:33> ECG Data Attestation: I personally reviewed and interpreted this ECG as follows: <Rj Naranjo DO - Last Filed: 12/27/23 16:33> Prior ECG tracings: available for review <Rj Naranjo DO - Last Filed: 12/27/23 16:33> Interpretation: Normal sinus rhythm with a first-degree AV block, otherwise normal intervals, rate 65 beats per minute, normal axis, no ST or T-wave abnormalities. Appears similar to previous EKG on file other than the new first-degree AV block <Rj Naranjo DO - Last Filed: 12/27/23 16:33> Discharge Plan Discharge Clinical Impression: Atypical chest pain <Rj Naranjo DO - Last Filed: 12/27/23 16:33> Patient Disposition: Home, Self-Care <Rj Naranjo DO - Last Filed: 12/27/23 16:33> Condition: Stable <Rj Naranjo DO - Last Filed: 12/27/23 16:33> Instructions: Chest Pain (ED) <Rj Naranjo DO - Last Filed: 12/27/23 16:33> Additional Instructions: Make sure to follow-up with a distribution engineering technologist to work on getting this echocardiogram scheduled. Return to emergency department for new worsening symptoms <Rj Naranjo DO - Last Filed: 12/27/23 16:33> Prescriptions: No Action valacyclovir 1 gram tablet 1,000 mg PO QDAY 90 Days Qty: 90 1RF Rx Instructions: For treatment of suppression pregabalin 25 mg capsule 25 mg PO QDAY Qty: 30 1RF albuterol sulfate 90 mcg/actuation HFA aerosol inhaler 2 inhalation PRN aspirin [Adult Low Dose Aspirin] 81 mg tablet,delayed release (DR/EC) 81 mg PO QDAY estradiol 1 mg tablet 1 mg PO QDAY Qty: 90 1RF <Rj Naranjo DO - Last Filed: 12/27/23 16:33> Follow Up/Referrals: Amna Jones MD [Primary Care Provider] - <Rj Naranjo DO - Last Filed: 12/27/23 16:33> Stand Alone Forms: My[facility] Info Instructions <Rj Naranjo DO - Last Filed: 12/27/23 16:33>
[2023-12-27 16:11] LABS: Basophils Absolute Auto 0.02 K/uL (0.00-0.30); Basophils Percent Auto 0.2 % (0.0-3.0); Eosinophils Absolute Auto 0.31 K/uL (0.00-0.50); Eosinophils Percent Auto 3.7 % (0.0-7.0); Hematocrit 39.3 % (33.0-51.0); Hemoglobin* 13.4 gm/dL (12.0-16.0); Immature Granulocytes Abs Auto 0.01 K/uL (0.00-0.30); Immature Granulocytes Pct Auto 0.1 %; Lymphocytes Absolute Auto 2.56 K/uL (0.90-2.90); Lymphocytes Percent Auto 30.6 % (20-44); Mean Corpuscular HGB Conc 34 gm/dL (32-36); Mean Corpuscular Hemoglobin 35 pg (26-34); Mean Corpuscular Volume 102 fL (80-100); Monocytes Percent Auto 6.3 % (0.0-11.0); Neutrophils Absolute Auto 4.94 K/uL (1.7-7.0); Neutrophils Percent Auto 59.1 % (42.0-72.0); Platelet Count* 282 K/uL (140-440); RDW Coefficient of Variation % 12.5 % (11.5-15.5); Red Blood Count 3.86 m/uL (4.00-5.20); White Blood Count* 8.37 K/uL (4.50-11.00)
[2023-12-27 16:20] VITALS: BP 135/91; PULSE 77; RESP 25; O2SAT 98
[2023-12-27 16:21] LABS: Slide Review Reflex No
[2023-12-27 16:23] LABS: Chloride* 107 mmol/L (96-114); Sodium* 135 mmol/L (135-149)
[2023-12-27 16:24] LABS: Potassium* 4.2 mmol/L (3.6-5.1)
[2023-12-27 16:26] LABS: Anion Gap 7 mEq/L (7-15); Carbon Dioxide* 21 mmol/L (20-32); Creatinine* 0.6 mg/dL (0.5-1.5); Est. Creatinine Clearance* 105.45; Estimated Glomerular Filt Rate 107 ml/min
[2023-12-27 16:27] LABS: Blood Urea Nitrogen* 19 mg/dL (7-30); Calcium* 9.4 mg/dL (8.4-10.6); Glucose* 95 mg/dL (60-115); Magnesium* 2.1 mg/dL (1.5-2.6)
[2023-12-27 16:52] LABS: PCR FLU A Negative PCR FLU A (Negative); PCR FLU B Negative PCR FLU B (Negative); PCR RSV Negative PCR RSV (Negative); SARS PCR* Negative SARS-CoV-2 (Negative)
[2023-12-27 17:00] VITALS: BP 143/97; PULSE 70; RESP 20; O2SAT 98
[2023-12-27 17:30] VITALS: BP 124/85; PULSE 68; RESP 21; O2SAT 95
[2023-12-27 18:00] VITALS: BP 124/80; PULSE 68; RESP 21; O2SAT 100
== END 2023-12-27 17:56 | disposition home or self-care (01) ==
PROVIDERS: Emergency Provider Student in an Organized Health Care Education/Training Program; PCP Family Medicine
DX: R07.89 Other chest pain (principal)
CPT/HCPCS: 36415; 71046; 80048; 83735; 84484; 85025; 87631; 93005; 99283; 99284; 99285

== ENCOUNTER 2024-01-29 14:02 | Emergency (ER) | payer BC, SELFPAY ==
[2024-01-29 14:08] VITALS: BP 149/98; PULSE 81; RESP 18; TEMP 36.6; O2SAT 98; BMI 22.1
--- NOTE | 2024-01-29 14:23 | ED_ITS ---
HPI - General Adult General Chief complaint: Ear/Nose/Throat Problem Stated complaint: Sinus/ear/throat pain Time Seen by Provider: 01/29/24 14:07 History of Present Illness HPI narrative: Patient is a 53-year-old woman with history of tobacco use who presents with nonproductive cough general malaise 6 chest congestion and sinus congestion. She has had no fevers no chills no night sweats. 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 She states that a Z-Chuck usually helps her and she is not motivated at this time to quit smoking unfortunately. No other concerns have been noted. Related Data Home Medications Medication Instructions Recorded Confirmed albuterol sulfate 90 mcg/actuation 2 inhalation PRN 11/27/22 10/16/23 aerosol inhaler aspirin 81 mg tablet,delayed 81 mg PO QDAY 10/02/23 10/16/23 release (Adult Low Dose Aspirin) amoxicillin 500 mg capsule 1,000 mg PO 3XD 01/29/24 01/29/24 Previous Rx's Medication Instructions Recorded valacyclovir 1 gram tablet 1,000 mg PO QDAY 90 days #90 tabs 04/17/23 pregabalin 25 mg capsule 25 mg PO QDAY #30 caps 08/28/23 estradiol 1 mg tablet 1 mg PO QDAY #90 tabs 11/10/23 Allergies Allergy/AdvReac Type Severity Reaction Status Date / Time No Known Drug Allergies Allergy Verified 10/16/23 13:44 Review of Systems Status of ROS: Reports: 10 or more systems reviewed and unremarkable except as noted in History and below [facility] Medical History Polyp of colon ?K63.5 - Polyp of colon (ICD-10) Chest pain ?R07.9 - Chest pain, unspecified (ICD-10) Primary osteoarthritis, right wrist ?M19.031 - Primary osteoarthritis, right wrist (ICD-10) Encounter for pre-operative examination ?Z01.818 - Encounter for other preprocedural examination (ICD-10) Surgical History History of hand surgery ?Z98.890 - Other specified postprocedural states (ICD-10) History of surgery on lower extremity (12/31/18) ?Z98.890 - Other specified postprocedural states (ICD-10) H/O arthroscopy of left knee ?Z98.890 - Other specified postprocedural states (ICD-10) S/P excisional debridement (01/06/06) ?Z98.890 - Other specified postprocedural states (ICD-10) History of total hysterectomy with bilateral salpingo-oophorectomy (BSO) (08/06/16) ?Z90.710 - Acquired absence of both cervix and uterus (ICD-10) ?Z90.722 - Acquired absence of ovaries, 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) ?Z90.79 - Acquired absence of other genital organ(s) (ICD-10) Status post wrist surgery (2018) ?Z98.890 - Other specified postprocedural states (ICD-10) Status post arthroscopy of right knee ?Z98.890 - Other specified postprocedural states (ICD-10) Status post abdominoplasty (03/19/10) ?Z98.890 - Other specified postprocedural states (ICD-10) History of dilation and curettage (01/12/13) ?Z98.890 - Other specified postprocedural states (ICD-10) Family History Maternal Grandmother Stroke Diabetes Heart disease Mother Mental disor NEC oth dis Sister Mental disor NEC oth dis Social History Narrative: 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 Smoking Status: Current every day smoker What tobacco products do you use: cigarettes Smoking packs per day: 0.5 Smoking cigarettes per day: 10.0 Do you use any of these nicotine containing products: None Second hand tobacco smoke exposure: No How often do you have a drink containing alcohol: 2-3 times a week How many standard drinks containing alcohol do you have on a typical day: 1 or 2 How often do you have six or more drinks on one occasion: Never AUDIT-C Alcohol total score: 3 Non-prescribed substance use: denies use Little interest or pleasure in doing things: nearly every day Feeling down, depressed, or hopeless: nearly every day service: No Exam Narrative: Exam Narrative: EXAM GENERAL: Patient appears comfortable and well. EYES: No scleral icterus. ENT: Tympanic membranes and oropharynx normal. THYROID: no thyroid nodules or thyromegaly. LYMPH: No supraclavicular or cervical lymphadenopathy. SKIN: Visible skin seen during exam normal or with benign process only. EXT: No dependent lower extremity pedal edema. HEART: Regular rate and rhythm with no murmurs, rubs, or gallops. LUNGS: Clear to auscultation bilaterally with no crackles or wheezes. ABD: Soft, non tender, non distended. PSYCH: Good eye contact, speech is not pressured. Const: Vital Signs, click to edit/add: Vital Signs - 24 hr 01/29/24 14:08 Temperature 97.9 F Pulse Rate [Pulse Oximeter] 81 Respiratory Rate 18 Blood Pressure [Ri ght Upper Arm] 149/98 H Pulse Oximetry 98 Oxygen Delivery Me thod Room Air Course Course ED Course: Patient seen and examined. Vital Signs Vital signs: Initial Vital Signs Temperature 97.9 F 01/29/24 14:08 Temperature Source Temporal Artery Scan 01/29/24 14:08 Pulse Rate 81 01/29/24 14:08 Respiratory Rate 18 01/29/24 14:08 Blood Pressure 149/98 H 01/29/24 14:08 Blood Pressure Mean 115 H 01/29/24 14:08 Blood Pressure Position Sitting 01/29/24 14:08 Pulse Oximetry 98 01/29/24 14:08 Oxygen Delivery Method Room Air 01/29/24 14:08 Vital Signs Temperature 97.9 F 01/29/24 14:08 Pulse Rate 81 01/29/24 14:08 Respiratory Rate 18 01/29/24 14:08 Blood Pressure 149/98 H 01/29/24 14:08 Pulse Oximetry 98 01/29/24 14:08 Oxygen Delivery Method Room Air 01/29/24 14:08 Temperature 97.9 F 01/29/24 14:08 Pulse Rate 81 01/29/24 14:08 Respiratory Rate 18 01/29/24 14:08 Blood Pressure 149/98 H 01/29/24 14:08 Pulse Oximetry 98 01/29/24 14:08 Oxygen Delivery Method Room Air 01/29/24 14:08 Medical Decision Making MDM Narrative Medical decision making narrative: Patient is a 53-year-old woman who presents with mild COPD exacerbation. She was counseled on smoking cessation. She has a normal exam and normal vital signs. Did prescribe Z-Chuck as directed and recommend smoking cessation under rest plenty fluids and follow-up with her primary physician as needed. Differential diagnosis includes but not limited to COPD exacerbation pneumonia bronchitis sinusitis viral syndrome. Discharge Plan Discharge Clinical Impression: Bronchitis Patient Disposition: Home, Self-Care Condition: Stable Instructions: Acute Bronchitis (ED) Additional Instructions: Z-Chuck as directed Continue symptomatic care Follow-up with your doctor as needed. Activity Level: No Restrictions Discharge Diet: Regular Prescriptions: No Action valacyclovir 1 gram tablet 1,000 mg PO QDAY 90 Days Qty: 90 1RF Rx Instructions: For treatment of suppression pregabalin 25 mg capsule 25 mg PO QDAY Qty: 30 1RF albuterol sulfate 90 mcg/actuation HFA aerosol inhaler 2 inhalation PRN aspirin [Adult Low Dose Aspirin] 81 mg tablet,delayed release (DR/EC) 81 mg PO QDAY amoxicillin 500 mg capsule 1,000 mg PO 3XD estradiol 1 mg tablet 1 mg PO QDAY Qty: 90 1RF Follow Up/Referrals: Amna Jones MD [Primary Care Provider] - Stand Alone Forms: Remark Info Instructions
== END 2024-01-29 14:44 | disposition home or self-care (01) ==
LOC: ED 14:40
PROVIDERS: Emergency Provider Internal Medicine; PCP Family Medicine
DX: J40 Bronchitis, not specified as acute or chronic (principal)
CPT/HCPCS: 99283

== ENCOUNTER 2024-02-05 15:05 | Emergency (ER) | payer BC, SELFPAY ==
[2024-02-05 15:26] VITALS: BP 163/96; PULSE 70; RESP 16; TEMP 36.8; O2SAT 98; BMI 22.6
--- NOTE | 2024-02-05 15:29 | XR_ITS ---
Patient: OSVALDO SANTOS Facility:?[facility] Patient ID:?[id number] Site Patient ID:?[id number]. Site :?[id number] Study:?XRay-Chest 1V PORTABLE-02/05/2024 3:45:54 PM Ordering Physician:LUCIA Final Report: INDICATION: Cough. TECHNIQUE: Chest 1 views. COMPARISON: December 27, 2023. FINDINGS: Cardiovascular and mediastinum: Heart size and vasculature are normal in caliber and appearance. Lungs and pleural spaces: Lungs are clear. No sign of infiltrate or mass. No sign of pleural effusion. No pneumothorax. Bones and soft tissues: No significant findings. IMPRESSION: No acute findings and no significant changes from the prior exam. Dictated by Jorge Alberto Mustafa MD @ 02/05/2024 3:48:38 PM Signed by:?Jorge Alberto Mustafa MD @02/05/2024 3:48:38 PM (Electronic Signature)
--- NOTE | 2024-02-05 15:33 | ED.GENADULT ---
"HPI - General Adult General Date Seen: 02/05/24 Chief complaint: Cough Stated complaint: bronchitis Time Seen by Provider: 02/05/24 15:33 History of Present Illness HPI narrative: 53-year-old female with a history of bronchitis, mild asthma, dyslipidemia, osteoarthritis, tobacco user (1/2 pack per day), distant history of a pneumothorax at age 19. Review of medical records According to urgent care notes from today indicate that she has 6 week history of persistent, nonproductive cough. She has been on 1st amoxicillin and 2nd Azithromycin over the past 6 weeks. In review of her medical record I saw her last August for facial pain, sinus drainage, sore throat, and cough. She had a middle ear effusion and possibly a sinus infection at that time. Prescribed doxycycline. Return to the ER 4 days later with ongoing nasal congestion. Viral PCR panel negative. Put on Azithromycin. In the ER 12/26 for chest pain. Had negative troponins a cardiac workup in the ER. Seen again in the ER 1 week ago on 01/28. This time for nonproductive cough. Requested and received a prescription for Azithromycin. Patient came to the ER this afternoon after going to the urgent care. She had a negative interaction with the urgent care provider. She tells me that she has probably had her current cough and illness ongoing for about 3 weeks or so. Symptoms have been a cough that tends to be worse after she has been laying down. It is sometimes productive of yellow sputum but mostly nonproductive. She sometimes gets some chest tightness on the left side of her chest. In addition to coughing she is feeling very fatigued. She has has headache. She has had nasal congestion, sinus congestion. Sometimes also sore throat. No vomiting. Low no fever. No known sick exposures. 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 He has not been ill. Related Data Home Medications Medication Instructions Recorded Confirmed albuterol sulfate 90 mcg/actuation 2 inhalation PRN 11/27/22 02/05/24 aerosol inhaler aspirin 81 mg tablet,delayed 81 mg PO QDAY 10/02/23 02/05/24 release (Adult Low Dose Aspirin) Previous Rx's Medication Instructions Recorded valacyclovir 1 gram tablet 1,000 mg PO QDAY 90 days #90 tabs 04/17/23 estradiol 1 mg tablet 1 mg PO QDAY #90 tabs 11/10/23 Allergies Allergy/AdvReac Type Severity Reaction Status Date / Time No Known Drug Allergies Allergy Verified 02/05/24 15:28 [facility] Medical History (Updated 02/05/24 @ 16:32 by Alfonso Light MD) Persistent cough ?R05.3 - Chronic cough (ICD-10) Polyp of colon ?K63.5 - Polyp of colon (ICD-10) Chest pain ?R07.9 - Chest pain, unspecified (ICD-10) Primary osteoarthritis, right wrist ?M19.031 - Primary osteoarthritis, right wrist (ICD-10) Encounter for pre-operative examination ?Z01.818 - Encounter for other preprocedural examination (ICD-10) Surgical History History of hand surgery ?Z98.890 - Other specified postprocedural states (ICD-10) History of surgery on lower extremity (12/31/18) ?Z98.890 - Other specified postprocedural states (ICD-10) H/O arthroscopy of left knee ?Z98.890 - Other specified postprocedural states (ICD-10) S/P excisional debridement (01/06/06) ?Z98.890 - Other specified postprocedural states (ICD-10) History of total hysterectomy with bilateral salpingo-oophorectomy (BSO) (08/06/16) ?Z90.710 - Acquired absence of both cervix and uterus (ICD-10) ?Z90.722 - Acquired absence of ovaries, 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) ?Z90.79 - Acquired absence of other genital organ(s) (ICD-10) Status post wrist surgery (2018) ?Z98.890 - Other specified postprocedural states (ICD-10) Status post arthroscopy of right knee ?Z98.890 - Other specified postprocedural states (ICD-10) Status post abdominoplasty (03/19/10) ?Z98.890 - Other specified postprocedural states (ICD-10) History of dilation and curettage (01/12/13) ?Z98.890 - Other specified postprocedural states (ICD-10) Family History Maternal Grandmother Stroke Diabetes Heart disease Mother Mental disor NEC oth dis Sister Mental disor NEC oth dis Social History Narrative: 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 Smoking Status: Current every day smoker What tobacco products do you use: cigarettes Smoking packs per day: 0.5 Smoking cigarettes per day: 10.0 Do you use any of these nicotine containing products: None Second hand tobacco smoke exposure: No How often do you have a drink containing alcohol: 2-3 times a week How many standard drinks containing alcohol do you have on a typical day: 1 or 2 How often do you have six or more drinks on one occasion: Never AUDIT-C Alcohol total score: 3 Non-prescribed substance use: denies use Little interest or pleasure in doing things: nearly every day Feeling down, depressed, or hopeless: nearly every day service: No Exam Narrative: Exam Narrative: Constitutional: Appears well-developed and well-nourished. Alert. Conversant. Non toxic. HENT: Head: Atraumatic. Nose: Nose normal. Nonpurulent rhinorrhea, mostly from right not Right ear: Mastoid, pinna, canal normal. Clear fluid behind the TM. No erythema or bulging. The left ear: Mastoid, pinna, canal, TM normal. Mouth/Throat: Oral mucosa is clear and moist. no trismus. Pharynx normal. Tonsils symmetric. No tonsillar enlargement, erythema, or exudate. Eyes: Conjunctivae normal. EOM normal. Pupils equal, round, and reactive to light. No scleral icterus. Neck: Normal range of motion. Neck supple. No tracheal deviation present. Cardiovascular: Normal rate, regular rhythm. No gallop. No friction rub. No murmur heard. Symmetric radial artery pulses Pulmonary/Chest: Effort normal. No stridor. No respiratory distress. No wheezes. No rales. No rhonchi . No tenderness. Musculoskeletal: RUE: Normal range of motion. No tenderness. No deformity LUE: Normal range of motion. No tenderness. No deformity RLE: Normal range of motion. No edema. No tenderness. No deformity LLE: Normal range of motion. No edema. No tenderness. No deformity Lymph: No cervical adenopathy. Neurological: Alert and oriented to person, place, and time. Normal strength. CN II-VII intact. No sensory deficit. GCS eye subscore is 4. GCS verbal subscore is 5. GCS motor subscore is 6. Normal coordination Skin: Skin is warm and dry. No rash noted. No pallor. Normal capillary refill. Psychiatric: Normal mood. Normal affect. Const: Vital Signs, click to edit/add: Vital Signs - 24 hr 02/05/24 15:26 Temperature 98.2 F Pulse Rate [Right Pulse Oximeter] 70 Respiratory Rate 16 Blood Pressure [Ri ght Upper Arm] 163/96 H Pulse Oximetry 98 Oxygen Delivery Me thod Room Air Course Vital Signs Vital signs: Initial Vital Signs Temperature 98.2 F 02/05/24 15:26 Temperature Source Temporal Artery Scan 02/05/24 15:26 Pulse Rate 70 02/05/24 15:26 Pulse Rhythm Regular 02/05/24 15:26 Pulse Strength 3+ Normal 02/05/24 15:26 Respiratory Rate 16 02/05/24 15:26 Blood Pressure 163/96 H 02/05/24 15:26 Blood Pressure Mean 118 H 02/05/24 15:26 Blood Pressure Position Sitting 02/05/24 15:26 Pulse Oximetry 98 02/05/24 15:26 Oxygen Delivery Method Room Air 02/05/24 15:26 Vital Signs Temperature 98.2 F 02/05/24 15:26 Pulse Rate 70 02/05/24 15:26 Respiratory Rate 16 02/05/24 15:26 Blood Pressure 163/96 H 02/05/24 15:26 Pulse Oximetry 98 02/05/24 15:26 Oxygen Delivery Method Room Air 02/05/24 15:26 Temperature 98.2 F 02/05/24 15:26 Pulse Rate 70 02/05/24 15:26 Respiratory Rate 16 02/05/24 15:26 Blood Pressure 163/96 H 02/05/24 15:26 Pulse Oximetry 98 02/05/24 15:26 Oxygen Delivery Method Room Air 02/05/24 15:26 Medical Decision Making MDM Narrative Medical decision making narrative: This patient presents for evaluation of cough, nasal congestion, sore throat, headache, fatigue ongoing for the past 3 weeks or so.. . Viral testing is negative for influenza, coronavirus, RSV. There is no signs at this point of serious bacterial infection such as OM, RPA, epiglottitis, ART OBJECTS REPAIRER, strep pharyngitis, pneumonia, sinusitis, meningitis, bacteremia, serious bacterial infection. Given duration of cough we did obtain a chest x-ray and it is clear. No evidence for pneumonia, pneumothorax, pleural effusion. No obvious lung tumors on the chest x-ray. The patient is a smoker and reports that she has been using inhalers and her 's nebulizers at home and they do cause some temporary relief. She is not having any wheezing on my lung exam here in the ER today but suspect is a component of bronchospasm and bronchitis occurring. She is a smoker. Not ready to quit smoking yet. Will put her on prednisone 40 mg daily for 5 days. She also requests a prescription for Zithromax-provided. She is eager for discharge because she has to get home to care for her disabled . She requests [place] meds because she does not have time to go or pharmacy on the way home. Instymeds prescription for prednisone 40 mg daily for 5 days and azithromycin 500 mg, then 250 for 4 more days.. There are no gastrointestinal symptoms at this point and no signs of dehydration. Close followup with primary care physician is indicated. Return to ED for fever > 103, protracted vomiting, confusion, or other worsening. Lab Data Labs: Lab Results 02/05/24 Range/Units 15:24 SARS-CoV-2 (PCR) Negative SARS-CoV-2 (Negative) Influenza Type A (PCR) Negative PCR FLU A (Negative) Influenza Type B (PCR) Negative PCR FLU B (Negative) RSV (PCR) Negative PCR RSV (Negative) Imaging Data Chest x-ray: Attestation: I have reviewed the pertinent imaging results. My impression: No acute infiltrate. No pneumothorax. No pleural effusion. Radiologist's impression: IMPRESSION: No acute findings and no significant changes from the prior exam. Discharge Plan Discharge Clinical Impression: Cough Patient Disposition: Home, Self-Care Condition: Stable Instructions: Acute Cough (ED) Additional Instructions: Please come back to the ER right away if you have worsening cough, worsening chest pain or trouble breathing, high fever, or any concerns. If you are not completely improved within 2-4 days, please recheck with your regular doctor or come back to the ER (or urgent care) for a recheck. Prescriptions: No Action valacyclovir 1 gram tablet 1,000 mg PO QDAY 90 Days Qty: 90 1RF Rx Instructions: For treatment of suppression albuterol sulfate 90 mcg/actuation HFA aerosol inhaler 2 inhalation PRN aspirin [Adult Low Dose Aspirin] 81 mg tablet,delayed release (DR/EC) 81 mg PO QDAY estradiol 1 mg tablet 1 mg PO QDAY Qty: 90 1RF Follow Up/Referrals: Amna Jones MD [Primary Care Provider] - Stand Alone Forms: [facility] | [facility] [employer] Info Instructions"
[2024-02-05 16:13] LABS: PCR FLU A Negative PCR FLU A (Negative); PCR FLU B Negative PCR FLU B (Negative); PCR RSV Negative PCR RSV (Negative); SARS PCR* Negative SARS-CoV-2 (Negative)
[2024-02-05 16:40] VITALS: BP 163/96; PULSE 70; RESP 16; TEMP 36.8
== END 2024-02-05 16:42 | disposition home or self-care (01) ==
PROVIDERS: Emergency Provider Emergency Medicine; PCP Family Medicine
DX: R05.9 Cough, unspecified (principal)
CPT/HCPCS: 71045; 87631; 99282; 99283

== ENCOUNTER 2024-05-04 16:21 | Emergency (ER) | payer BC, SELFPAY ==
[2024-05-04 16:30] VITALS: BP 130/83; PULSE 96; RESP 18; TEMP 36.1; O2SAT 99; BMI 23.1
--- NOTE | 2024-05-04 17:04 | ED_ITS ---
HPI - General Adult General Chief complaint: Shortness of Breath/Dyspnea Stated complaint: meds for pneumonia had adverse affects Time Seen by Provider: 05/04/24 16:46 History of Present Illness HPI narrative: This 54-year-old female comes in reporting persistent cough and episodes of sh ortness of breath with wheezing and chest tightness. She states that she had bronchitis a month or so ago and got better but then symptoms have worsened since then. She had a telehealth visit at which time she was diagnosed with pneumonia and was prescribed amoxicillin for 5 days. She completed that and did not feel much better. She then received a prescription for doxycycline which caused heartburn and she did not tolerate very well. She arrives here with normal vital signs and is speaking in complete sentences. She does report other times in the day where her breathing gets tight. She states that she does use an inhaler with minimal relief. She was on a steroid when her coughing started a few months ago and reports side effects from prednisone but states that it helped her breathing significantly. She also reports a remote history of a pneumothorax when she was 19 years old. 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 She states that she has no rest from taking care of him and is able to sleep when he sleeping which amounts to about 5 hours at night. Related Data Previous Rx's ?Medication ?Instructions ?Recorded estradiol 1 mg tablet 1 mg PO QDAY #90 tabs 11/10/23 valacyclovir 1 gram tablet 1,000 mg PO QDAY 90 days #90 tabs 02/05/24 methylprednisolone 4 mg tablets in See Rx Instructions PO .COMPLEX 05/04/24 a dose pack (Medrol (Chuck)) #21 ea Allergies Allergy/AdvReac Type Severity Reaction Status Date / Time No Known Drug Allergies Allergy Verified 02/05/24 15:28 Review of Systems Status of ROS: Reports: 10 or more systems reviewed and unremarkable except as noted in History and below Narrative: Constitutional: No fevers, no weight gain or loss. Eyes: No discharge. No vision changes. HENT: No congestion, no sore throat, no ear pain. Cardiovascular: No chest pain, no palpitations. Respiratory: She reports a cough with episodes of wheezing and shortness of breath. Gastrointestinal: No abdominal pain, no vomiting, no diarrhea. Genitourinary: No dysuria, no hematuria. Musculoskeletal: Normal range of motion. Skin: No rashes, no pruritis. Neurological: No dizziness, weakness, sensory change, speech change. Endo/Heme/Allergies: No bruising or bleeding. No polydipsia. Pysch: no suicidality, no anxiety, no insomnia. All other systems reviewed and are negative. [facility] Medical History (Updated 05/04/24 @ 18:14 by Gio Yu MD) Persistent cough ?R05.3 - Chronic cough (ICD-10) Polyp of colon ?K63.5 - Polyp of colon (ICD-10) Chest pain ?R07.9 - Chest pain, unspecified (ICD-10) Primary osteoarthritis, right wrist ?M19.031 - Primary osteoarthritis, right wrist (ICD-10) Encounter for pre-operative examination ?Z01.818 - Encounter for other preprocedural examination (ICD-10) Surgical History History of hand surgery ?Z98.890 - Other specified postprocedural states (ICD-10) History of surgery on lower extremity (12/31/18) ?Z98.890 - Other specified postprocedural states (ICD-10) H/O arthroscopy of left knee ?Z98.890 - Other specified postprocedural states (ICD-10) S/P excisional debridement (01/06/06) ?Z98.890 - Other specified postprocedural states (ICD-10) History of total hysterectomy with bilateral salpingo-oophorectomy (BSO) (08/06/16) ?Z90.710 - Acquired absence of both cervix and uterus (ICD-10) ?Z90.722 - Acquired absence of ovaries, 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) ?Z90.79 - Acquired absence of other genital organ(s) (ICD-10) Status post wrist surgery (2018) ?Z98.890 - Other specified postprocedural states (ICD-10) Status post arthroscopy of right knee ?Z98.890 - Other specified postprocedural states (ICD-10) Status post abdominoplasty (03/19/10) ?Z98.890 - Other specified postprocedural states (ICD-10) History of dilation and curettage (01/12/13) ?Z98.890 - Other specified postprocedural states (ICD-10) Family History Maternal Grandmother Stroke Diabetes Heart disease Mother Mental disor NEC oth dis Sister Mental disor NEC oth dis Social History Narrative: 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 Smoking Status: Current every day smoker What tobacco products do you use: cigarettes Smoking packs per day: 0.5 Smoking cigarettes per day: 10.0 Do you use any of these nicotine containing products: None Second hand tobacco smoke exposure: No How often do you have a drink containing alcohol: 2-3 times a week How many standard drinks containing alcohol do you have on a typical day: 1 or 2 How often do you have six or more drinks on one occasion: Never AUDIT-C Alcohol total score: 3 Non-prescribed substance use: denies use Little interest or pleasure in doing things: nearly every day Feeling down, depressed, or hopeless: nearly every day service: No Exam Narrative: Exam Narrative: Constitutional: Well-developed, well-nourished, no acute distress. HEENT: Normocephalic, atraumatic. Neck: Normal range of motion. Nontender. Supple. Heart: Regular. No murmurs. Normal rate. Intact distal pulses. Lungs: Clear to auscultation. No chest discomfort. No wheezes, rhonchi, or rales. Abdomen: Normal bowel sounds. Nontender. No rebound tenderness. Genitalia: Deferred. Back: No midline tenderness. Normal range of motion. Extremities: Normal range of motion. No injury. Skin: Intact. No rash. Warm. No erythema or pallor. Neurologic: No altered sensation. No weakness. Alert and oriented. Psychiatric: No suicidality. No anxiety or depression. No insomnia. Nursing notes and vitals signs are reviewed. Const: Vital Signs, click to edit/add: Vital Signs - 24 hr 05/04/24 16:30 Temperature 97 F L Pulse Rate [Pulse Oximeter] 96 Respiratory Rate 18 Blood Pressure [Ri ght Upper Arm] 130/83 Pulse Oximetry 99 Oxygen Delivery Me thod Room Air Course Vital Signs Vital signs: Initial Vital Signs Temperature 97 F L 05/04/24 16:30 Temperature Source Temporal Artery Scan 05/04/24 16:30 Pulse Rate 96 05/04/24 16:30 Respiratory Rate 18 05/04/24 16:30 Blood Pressure 130/83 05/04/24 16:30 Blood Pressure Mean 98 05/04/24 16:30 Pulse Oximetry 99 05/04/24 16:30 Oxygen Delivery Method Room Air 05/04/24 16:30 Vital Signs Temperature 97 F L 05/04/24 16:30 Pulse Rate 96 05/04/24 16:30 Respiratory Rate 18 05/04/24 16:30 Blood Pressure 130/83 05/04/24 16:30 Pulse Oximetry 99 05/04/24 16:30 Oxygen Delivery Method Room Air 05/04/24 16:30 Temperature 97 F L 05/04/24 16:30 Pulse Rate 96 05/04/24 16:30 Respiratory Rate 18 05/04/24 16:30 Blood Pressure 130/83 05/04/24 16:30 Pulse Oximetry 99 05/04/24 16:30 Oxygen Delivery Method Room Air 05/04/24 16:30 Medications Administered Medications: Discontinued Medications Generic Name Dose Route Start Last Admin Trade Name Freq PRN Reason Stop Dose Admin Dexamethasone 10 mg 05/04/24 17:03 05/04/24 17:29 Dexamethasone 10 Mg/Ml Inj PO 05/04/24 17:04 10 mg ONCE ONE Administration Medical Decision Making MDM Narrative Medical decision making narrative: This patient comes in stating that she did not tolerate doxycycline which was prescribed for presumed pneumonia. She did not ever have an x-ray to establish this diagnosis. An x-ray today is obtained and shows no acute cardiopulmonary findings. She is under lots of stress as her significant other has ALS and is declining. She is taking care of him and has no rest except for the time when he is sleeping at night. She does report some exertional shortness of breath and also reports some episodes of tachycardia while at rest. She has worn a heart monitor and is scheduled to have a stress echocardiogram. I did discuss lab and imaging options today and who has agreed to have a chest x-ray to rule out pneumonia. She did receive an oral dose of dexamethasone 10 mg and states that she is feeling better. She does have albuterol that can be used at home as needed. I did provide a prescription for Medrol Dosepak as she states that this has helped in the past when she is having some reactive airway symptoms. She has normal vital signs here and is okay to be discharged home. Imaging Data Chest x-ray: Radiologist's impression: No acute or significant findings. Discharge Plan Discharge Clinical Impression: Reactive airway disease Patient Disposition: Home, Self-Care Condition: Stable Additional Instructions: Take medication as prescribed. Continue with other medications as needed and directed. Follow up with MD or return if symptoms are recurrent or worsening. Prescriptions: New methylprednisolone [Medrol (Chuck)] 4 mg tablets,dose pack See Rx Instructions .ROUTE .COMPLEX Qty: 21 0RF Rx Instructions: orally per package directions No Action estradiol 1 mg tablet 1 mg PO QDAY Qty: 90 1RF valacyclovir 1 gram tablet 1,000 mg PO QDAY 90 Days Qty: 90 0RF Rx Instructions: For treatment of suppression Follow Up/Referrals: Amna Jones MD [Primary Care Provider] - Stand Alone Forms: [facility] Info Instructions
--- NOTE | 2024-05-04 17:04 | CRLHL7_ITS ---
For Patients: As a result of the Cures Act, medical imaging exams and procedure reports are released immediately into your electronic medical record. You may view this report before your referring provider. If you have questions, please contact your health care provider. INDICATION: Cough, SOB. TECHNIQUE: Chest 2 views. COMPARISON: None. FINDINGS: Cardiovascular and mediastinum: Heart size is normal. Unremarkable mediastinum, allowing for slight patient rotation to the right. Lungs and pleural spaces: Lungs are clear. No sign of infiltrate or mass. No sign of pleural effusion. No pneumothorax. Bones and soft tissues: No significant findings. IMPRESSION: No acute or significant findings. Dictated by Francis Carrillo MD @ 05/04/2024 5:52:36 PM (Electronically Signed)
[2024-05-04] MEDS: dexAMETHasone 10 MG/ML inj PO (17:29)
== END 2024-05-04 18:20 | disposition home or self-care (01) ==
PROVIDERS: Emergency Provider Emergency Medicine Emergency Medical Services; PCP Family Medicine
DX: J45.909 Unspecified asthma, uncomplicated (principal)
CPT/HCPCS: 71046; 99284; J1100

== ENCOUNTER 2024-10-14 14:15 | Emergency (ER) | payer BC, SELFPAY ==
--- OUTSIDE RECORDS SUMMARY | 2024-10-14 14:18 | XMS_ITS | Continuity of Care Document ---
Author Name [facility] Organization [facility] Care Team Providers Care Final Expense Agent Name Role Phone [facility] Unavailable Unavailable Problems Combined list of problems from Department of Defense and Veterans [facility] facilities. It does not include entries that were removed or entered in error. Problem Status Onset Date Problem Type Date of Resolution Comments Source Diagnosis: ICD-10-CM Z65.8 Oth problems related to psychosocial circumstances Active Diagnosis [facility] Diagnosis: ICD-10-CM Z71.89 Other specified counseling Active Diagnosis [facility] Encounters Combined list of: 1) Encounters from Department of Veterans Affairs facilities going back up to thelast 18 months. 2) Encounters from the Department of Defense facilities going back up to 280 months. Location Location Details Encounter Type Encounter Number Reason For Visit Attending Provider ADM Date DC Date Status Disposition Source [place] [facility] Outpatient Encounter [id number] 05/01 [facility] [place] [facility] Outpatient Encounter [id number] 05/16 [facility] [place] [facility] HC PRO PHONE CALL 11-20 MIN [id number] Diagnos is: ICD-10- CM Z71.89 Other specifi ed substance abuse counselor ing<br/ > MAHESH-BU SS,SANTI 05/28 [facility] [place] [facility] FAMILY PSYTX W/O PT 50 MIN [id number] Diagnos is: ICD-10- CM Z71.89 Other specifi ed substance abuse counselor ing<br/ > MAHESH-BU SS,SANTI 05/29 [facility] [place] [facility] PSYTX W/O PT 50 MIN [id number] Diagnos is: ICD-10- CM Z71.89 Other specifi ed substance abuse counselor ing<br/ > MAHESH-BU SS,SANTI 06/05 [facility] [place] [facility] Outpatient Encounter [id number] 06/12 [place] [facility] [place] [facility] Outpatient Encounter [id number] 06/26 [place] [facility] [place] [facility] HC PRO PHONE CALL 5-10 MIN [id number] Diagnos is: ICD-10- CM Z65.8 Oth problem s related to psychos ocial circums tances< br/> MALCHERMansi,M JAGRUTI 07/24 [place] [facility] [place] [facility] Outpatient Encounter [id number] 07/31 [place] [facility] [place] [facility] Outpatient Encounter [id number] 08/12 [place] [facility] [place] [facility] Outpatient Encounter [id number] 09/17 [place] [facility] [place] [facility] Outpatient Encounter [id number] 12/10 [place] [facility] [place] [facility] ASS[facility]/REAS SESSMENT [id number] Diagnos is: ICD-10- CM Z65.8 Oth problem s related to psychos ocial circums tances< br/> GODBEY,GEE ELI 04/22 [place] [facility] [place] [facility] Outpatient Encounter [id number] Diagnos is: ICD-10- CM Z65.8 Oth problem s related to psychos ocial circums tances< br/> GODBEY,GEE ELI 05/05 [place] [facility] [place] [facility] Outpatient Encounter [id number] Diagnos is: ICD-10- CM Z65.8 Oth problem s related to psychos ocial circums tances< br/> GODBEY,GEE ELI 07/29 [place] [facility] [place] [facility] ASS[facility]/REAS SESSMENT [id number] Diagnos is: ICD-10- CM Z65.8 Oth problem s related to psychos ocial circums tances< br/> GERARD HER 08/03 [facility]
--- OUTSIDE RECORDS SUMMARY | 2024-10-14 14:18 | XMS_ITS | Clinical Summary ---
Author Organization [facility] Address [place], [place] [address] Care Team Providers Care Websphere Commerce Architect Name Role Phone Pcp, No Primary Care Provider Unavailabl e Allergies No known active allergies Medications MULTIVITAMIN TAB Take one tablet daily for vitamin supplementation ? 0 11/22/19 06 Active VALTREX 500 MG TABIndications: Genital herpes, unspecified take one tab daily 90 2 09/25/20 07 Active busPIRone (BUSPAR) 15 mg tabletIndicatio ns:Anxiety state, unspecified Take 1 tablet by mouth 2 times daily. 60 tablet 2 10/25/19 10 Active clonazepam (KLONOPIN) 1 mg tabletIndicatio ns:Anxiety state, unspecified Take 1 tablet by mouth 3 times daily. 15 tablet 0 10/25/19 10 Active fluticasone-jessica meterol (ADVAIR) 250-50 mcg/Dose diskus inhalerIndicati ons:Cough Inhale 1 Puff by mouth every 12 hours. 1 Inhaler 1 10/25/19 10 Active zolpidem (AMBIEN) 10 mg tabletIndicatio ns:Insomnia, unspecified Take 1 tablet by mouth at bedtime if needed for Sleep. 31 tablet 0 03/16/20 10 Active levothyroxine (SYNTHROID) 50 mcg tablet Take 1 tablet by mouth before breakfast. 0 07/26/20 10 Active albuterol HFA (PROAIR HFA) 90 mcg/Actuation inhalerIndicati ons:Cough Inhale 2 Puffs by mouth every 4 hours if needed. 1 Inhaler 0 12/22/19 11 Active FLUoxetine (PROZAC) 10 mg capsule Take 1 capsule by mouth every morning. 0 11/02/19 14 Active Active Problems Problem Noted Date Diagnosed Date Migraine, unspecified, witho ut mention of intractable migraine without mention of status migrainosus 06/20/2009 Subclinical hyperthyroidism 06/20/2009 Tobacco use disorder 01/21/2007 Genital herpes, unspecified 12/20/2005 Immunizations Name Administration Dates Next Due Influenza, IIV3 (Age >=3 years) 09/20/2003 Tdap 03/02/2007 Family History Medical History Relation Name Comments Genetic Other mother ovarian CA~MGM uncertain CA~PGM DM2, HTN, CAD, CVA Other Paternal Grandmother glaucom a Relation Name Status Comments Other Paternal Grandmother Social History Tobacco Use Types Packs/Day Years Used Date Smoking Tobacco: Every Day Cigarettes 0.5 17 Alcohol Use Standard Drinks/Week Comments Yes 0 (1 standard drink = 0.6 oz pur e alcohol) socially Social Connections Answer Date Recorded Frequency of Communication with Friends and Fami ly Not on file 07/25/2023 Comments No Sex and Gender Information Value Date Recorded Sex Assigned at Not on file Legal Sex Female 8:08 PM CDT Gender Identity Not on file Sexual Orientation Not on file Obstetrics History Last Filed Vital Signs Vital Sign Reading Time Taken Comments Blood Pressure 137/90 11/02/2013 2:20 PM TIE INSPECTOR Pulse 77 11/02/2013 2:20 PM TIE INSPECTOR Temperature 36.6 C (97.8 F) 10/25/2009 4:10 PM TIE INSPECTOR Respiratory Rate 18 11/27/2006 3:30 PM TIE INSPECTOR Oxygen Saturation 99% 10/25/2009 4:10 PM TIE INSPECTOR Inhaled Oxygen Concentration - - Weight 59.9 kg (132 lb) 10/25/2009 4:10 PM TIE INSPECTOR Height - - Body Mass Index - - Plan of Treatment Health Maintenance Due Date Last Done Comments Depression screening for age 12+ 1982 HIV for age 15-65 1985 BMI (ht and wt on same day) for age 18+ 1988 Hepatitis C screening for ag e 18-79 1988 Pap test for age 21-65 03/19/2013 0, 09/05/2006 Colonoscopy through age 75 2015 Lipids for age 45-75 2015 Mammogram for age 45-75 2015 Tetanus booster 03/02/2017 03/02/2007 Zoster (shingles) series for age 50+ (1 of 2) 2020 COVID-19 vaccine series ( season) 2024 Influenza for age 50-64 06/13/2024 09/20/2003 Tdap Completed 03/02/2007 Pneumococcal series for age 6-49 Aged Out No longer eligible b ased on patient's age to complete this topic Procedures Procedure Name Priority Date/Time Associated Diagnosis Comments GYNECOLOGICAL PANEL Timed 03/19/2010 9 :03 AM CDT from Last 3 Months or Most Recently Relevant to Health Maintenance Results * GYNECOLOGICAL PANEL (03/19/2010 9:03 AM CDT) CYTOLOGY CYTOPATHOLOGY REPORT [facility] Status: Final Status [id number] CLINICAL INFORMATION Last Date of LMP :03/07/10 Last Pap Date :2005 Last Pap Result :? [place]/Bx done today :No HPV Request :HPV if ASCUS SPECIMEN SOURCE :Cervical/vaginal ThinPrep Vial, screening SPECIMEN ADEQUACY :Satisfactory for evaluation Endocervical component present. INTERPRETATION/RES ULT Negative for intraepithelial lesion or malignancy (NIL) Cytology 1st Screener :wst Signed by :wst This specimen was screened by the FDA approved ThinPrep Imaging System and manually reviewed. NOTE: The Pap test is a screening technique, not a diagnostic procedure. It is used primarily to screen for squamous cancers and precursor lesions. Published studies have shown that it is subject to both false negative and false positive results. The pap test should not be used as the sole means to diagnose or exclude pre-malignant and malignant lesions. COLLECTED:03/19/10 ACCESSIONED: 03/21/10 SIGNED: 03/23/10 [facility] PAP [place] CODE NIL [facility] 03/19/2010 9:03 AM CDT 03/21/2010 9:03 AM CDT January Yanci PASTOR PATHOLOGY/CYTOLOGY Final R esult [facility] [place]IP [id number] [address] from Last 3 Months or Most Recently Relevant to Health Maintenance Insurance [facility] Care Teams Websphere Commerce Architect Relationship Specialty Start Date End Date Pcp, No . PCP - General 11/27/16
--- OUTSIDE RECORDS SUMMARY | 2024-10-14 14:19 | XMS_ITS | Encounter Summary ---
Author Organization [facility] Address [address] [place] [address] Care Team Providers Care Placement Manager Name Role Phone Bambi Roberson APRN, C.N.P., D.N.P. 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 [address] [place] [id number] Pharyngitis Acute (Primary Dx) Social History Tobacco Use Types Packs/Day Years Used Date Smoking Tobacco: Every Day Cigarettes Smokeless Tobacco: Never Alcohol Use Standard Drinks/Week Comments Yes 12 (1 standard drink = 0.6 oz pu re alcohol) [facility] Utilities Answer Date Recorded In the past 12 months has health system [employer] gas, oil, or water [employer] threatened to shut off services in your home? No 04/16/2024 Humiliation, Afraid, Rape, and Kick questionnair e Answer Date Recorded Within the last year, have y ou been afraid of your partner or ex-partner? No 11/06/2021 Within the last year, have y ou been humiliated or emotionally abused in other ways by your partner or ex-partner? No Within the last year, have y ou been kicked, hit, slapped, or otherwise physically hurt by your partner or ex-partner? No 11/06/2021 Within the last year, have y ou been raped or forced to have any kind of sexual activity by your partner or ex-partner? No 11/06/2021 Social Connection and Isolation Panel [NHANES] A nswer Date Recorded In a typical week, how many times do you talk on the phone with family, friends, or neighbors? Three times a week 11/06/2021 How often do you get togethe r with friends or relatives? Twice a week 11/06/2021 How often do you attend chur or jainism services? Never 11/06/2021 Do you belong to any clubs o r organizations such as anglican groups, unions, fraternal or athletic groups, or school groups? No 11/06/2021 How often do you attend meet ings of the clubs or organizations you belong to? Never 11/06/2021 Are you , , di vorced, , never , or living with a partner? 11/06/2021 AUDIT-C Answer Date Recorded Q1: How often do you have a drink containing alc ohol? 2-4 times a month 11/06/2021 Q2: How many drinks containi ng alcohol do you have on a typical day when you are drinking? 3 or 4 11/06/2021 Q3: How often do you have si x or more drinks on one occasion? Never 11/06/2021 Overall Financial Resource Strain (CARDIA) Answe r Date Recorded How hard is it for you to pa y for the very basics like food, housing, medical care, and heating? Not hard at all 11/06/2021 PHQ-2 Answer Date Recorded PHQ-2 Score 2 04/16/2024 [facility] - Occupational Stress Questionnaire Answer Date Recorded Do you feel stress - tense, restless, nervous, or anxious, or unable to sleep at night because your mind is troubled all the time - these days? Very much 11/06/2021 Exercise Vital Sign Answer Date Recorde d On average, how many days pe r week do you engage in moderate to strenuous exercise (like a brisk walk)? 2 days 04/16/2024 On average, how many minutes do you engage in exercise at this level? 20 min 04/16/2024 Hunger Vital Sign Answer Date Recorded Within the past 12 months, y ou worried that your food would run out before you got the money to buy more. Never true 04/16/20 24 Within the past 12 months, t he food you bought just didn't last and you didn't have money to get more. Never true 04/16/2024 PRAPARE - Transportation Answer Date Re corded In the past 12 months, has l ack of transportation kept you from medical appointments or from getting medications? No 02/2024 In the past 12 months, has l ack of transportation kept you from meetings, work, or from getting things needed for daily living? No 04/16/2024 Housing Stability Vital Sign Answer Janes e Recorded In the last 12 months, was t here a time when you were not able to pay the mortgage or rent on time? No 11/06/2021 In the last 12 months, how many places have you lived? 1 11/06/2021 In the last 12 months, was t here a time when you did not have a steady place to sleep or slept in a residential (including now)? No 11/06/2021 Nutrition Answer Date Recorded On average, how many serving s of fruits and vegetables do you eat per day (serving size is equal to 1 cup or approximately the size of a tennis ball)? 3-5 04/16/2024 Dental Answer Date Recorded Dental: Regular Dentist Yes 12/03/19 Employment Answer Date Recorded Employment status Employed but not working due t o illness or injury 04/16/2024 Education Answer Date Recorded What is the highest level of school you have completed or the highest degree you have received? 12th grade 03/22/2020 Comments No Sex and Gender Information Value Date Recorded Sex Assigned at Female 12/02/2019 12:53 PM SPECIAL CLIENT BUS DRIVER Legal Sex Female 11:06 AM CDT Gender Identity Female 12/02/2019 12:53 PM SPECIAL CLIENT BUS DRIVER Sexual Orientation Not on file documented as of this encounter Progress Notes * Cathie Glass M.D. - 09/22/2024 2:30 PM CST SUBJECTIVE Consult conducted via real-time audio/video technology by Cathie Glass M.D. working in the [facility] location to the patient's home. Chief Complaint Patient presents with Sore Throat HISTORY OF PRESENT ILLNESS 54 years-old Female presenting with Lymph node swelling. She reports a three day history of intermittent headache, body aches, fatigue, and mild throat irritation and feeling like her throat is swollen. She has a mild cough and has had subjective fever. Denies SOB, CP. Has tried ibuprofen for her symptoms. Her 15 yo grandson was visiting her this past weekend and was diagnosed with strep. - Severity: Mild - Side: One side - Trend: The same - Location: Neck, Jaw - Exact starting time: 4 Days ASSOC. SYMPTOMS / EXPOSURE - Headache - Started: Gradually - Vomiting - Frequency: Couple of times a day - Nausea - Made better by: Drinking fluids - Feeling down - Severity: Severe - Started: Gradually - Sore throat - Neck stiffness - Exposure to sick people - White spots in throat NOTE FROM PATIENT: - Respiratory - Sep 22, 2024 - History of asthma or regular inhaler usage ?? - No COVID-19 in last 6 months (or knowledge thereof) - No COVID-19 booster shot in the last 6 months - Negative (antigen/PCR) COVID-19 test since symptoms started - No at-home influenza test done since symptom onset ?? Strep pharyngitis - Sep 22, 2024 - Recent exposure to someone with positive strep test ?? - Hasn't done a rapid strep test/throat culture since symptoms started ?? - Centor score: 3 (Tonsillar Exudate (Reported by patient), Lymphadenopathy, Denies cough) & intake - Sep 22, 2024 - Denies - Not DENIES SYMPTOMS - GENERAL X Fever - HEENT X Runny nose X Hoarseness X Nasal congestion X Sneezing X Difficulty swallowing X Visual disturbance - PULM X Cough - GI X Diarrhea - NEURO X Slurred or abnormal speech X Tingling in arms or legs Past Medical History: Diagnosis Date Herpes Genitalis 12/20/2005 Current Outpatient Medications Medication Sig Dispense Refill albuterol 90 mcg/actuation inhaler Inhale 2 puffs every 6 (six) hours as needed for shortness of breath. 6.7 g 0 aspirin 81 mg capsule Take 81 mg by mouth. budesonide (Pulmicort) 180 mcg/actuation inhaler Inhale 1 puff 2 (two) times a day. Rinse mouth with water after use to reduce aftertaste and incidence of candidiasis. Do not swallow. 1 each 5 clonazePAM (KlonoPIN) 0.5 mg tablet Take 1 tablet (0.5 mg total) by mouth 2 (two) times a day as needed for anxiety. 60 tablet 0 estradioL (Estrace) 1 mg tablet Take 1 tablet (1 mg total) by mouth daily. 90 tablet 3 fluticasone propionate (Flonase) 50 mcg/actuation nasal spray 2 spray in each nostril once a day 16g 0 sod bicarb-sod chlor-neti pot packet with rinse device Use Netipot/saline rinse 1-2 times a day to clean sinuses. Use water that is either sterile, distilled, or previously boiled for preparations; do not use tap water. valACYclovir (Valtrex) 1000 mg tablet Take 1 tablet (1,000 mg total) by mouth daily. 90 tablet 3 No current facility-administered medications for this visit. Constitutional: - Negative for fever. ENT: - Negative for sinus congestion. - Sore throat Respiratory: Positive for dry cough. - Negative for shortness of breath. Gastrointestinal: Positive for nausea. - Negative for vomiting. All systems reviewed with pertinent positives/negatives documented above in HPI; all other review of systems negative. OBJECTIVE Constitutional General: She is not in acute distress. Appearance: Normal appearance. She is not ill-appearing or toxic-appearing. HENT Head: Normocephalic and atraumatic. Right Ear: External ear normal. Left Ear: External ear normal. Nose: Nose normal. Eyes Conjunctiva/sclera: Conjunctivae normal. Pulmonary Effort: Pulmonary effort is normal. No respiratory distress. Skin Findings: No rash. Neurological General: No focal deficit present. Mental Status: She is alert. Cranial Nerves: No cranial nerve deficit. Psychiatric Behavior: Behavior normal. Thought Content: Thought content normal. ASSESSMENT / PLAN #1 Pharyngitis Acute - Family Medicine -Symptomatic URI swab nurse visit (clinic); Future; Expected date: 09/22/2024 Recommended she take a Covid test, she took one on the first day of her symptoms which was negative. Ordered strep swab to be done at a nurse's visit but advised patient it is unlikely she has strep throat and likely has a virus causing her symptoms. Recommended OTC symptomatic treatment. ED precautions discussed. FOLLOW-UP No follow-ups on file. We have discussed supportive care, return precautions, and symptoms that would prompt more urgent evaluation. All questions answered to the patient's satisfaction. Confirmed patient's allergies and discussed the benefits and risks of today's treatment plan, including side effects of medications and/or ordered procedures. The patient was instructed on the follow up plan, return symptoms were reviewed, how to contact for questions was discussed, and the patient was advised of the limitations of video and the possible need for in person visit with worsening symptoms. Patient verbalized understanding and agrees with the plan. Denies any additional questions at this time. Health Maintenance Topic Date Due Mammogram Never done Hepatitis C Screening Never done Hepatitis B Vaccines (1 of 3 - 19+ 3-dose series) Never done Zoster Vaccines (1 of 2) Never done Tobacco Cessation counseling 09/22/2021 COVID-19 Vaccine (2023- season) Never done Lipid (Cholesterol) Screening 05/11/2025 Fasting Glucose for Diabetes Screening 06/28/2025 Colorectal Cancer Surveillance 01/26/2026 DTaP,Tdap,and Td Vaccines (5 - Td or Tdap) 07/07/2027 Depression Screening (Annual PHQ-2) Completed Pneumococcal vaccine (0-64 years) Completed Influenza Vaccine Completed HIV Screening Completed IPV Vaccines Aged Out Addressed HM during this visit No Were any chronic conditions identified (outside of ones treated today) that need to be addressed? No IAL CLIENT BUS DRIVER documented in this encounter Plan of Treatment Not on file documented as of this encounter Visit Diagnoses Diagnosis Pharyngitis Acute- Primary documented in this encounter Care Teams Placement Manager Relationship Specialty Start Date End Date Bambi Roberson APRN, C.N.P., D.N.P. PCP - General Family Medicine 05/13/24 documented as of this encounter
--- OUTSIDE RECORDS SUMMARY | 2024-10-14 14:19 | XMS_ITS | Referral Summary ---
Author Organization [facility] Address [address] [place] [address] Care Team Providers Care Retail Stock Clerk Name Role Phone Bambi Roberson APRN C.N.P., D.N.P. Primary Ca re Provider Unavailable Source Comments Patient records contain information from all sites at [facility]. For routine questions regarding patient records, call [phone] during business hours, M-F 8:00 AM - 5:00 PM Central Time. Record requests for emergency care only can be directed to [phone] at any time.[facility] Encounters Date Type Department Care Team Description 09/23/2024 5:30 PM TYPISTS SUPERVISOR Telemedicine [facility] at [address] [phone] Debo Lindo M.D. Pharyngitis Acute (Primary Dx) 09/22/2024 2:30 PM TYPISTS SUPERVISOR Telemedicine [facility] at [address] [phone] Cathie Glass M.D. Pharyngitis Acute (Primary Dx) 08/26/2024 3:00 PM TYPISTS SUPERVISOR Nurse Only Department of Family Medicine, [facility], in [address] [phone] Yesica Aceves M.D. Williams, Jessica J, L.P.N. Nurse Visit (RSV Vaccine ) Discharge Disposition: Home or Self Care 08/17/2024 5:00 PM TYPISTS SUPERVISOR Telemedicine Primary [facility] at [facility] [address] [facility] [place] [phone] Eva Bond M.D. Acute Recurrent Sinusitis Unspecified (Primary Dx) 08/17/2024 Nurse Triage Department of Family [facility], [facility], in [address] [phone] Pippa Carrillo, R.N. Sinusitis; Earache; Sore Throat 08/17/2024 Nurse Triage Department of Family Medicine, [facility], in [address] [phone] Hema Lovett RAhmetNAhmet Sinus Symptoms from Last 3 Months Allergies No known active allergies Medications * This document contains information received from the source organization and may not represent a complete record from that organization. aspirin 81 mg capsule Take 81 mg by mouth. 3 Active albuterol 90 mcg/actuation inhalerIndicati ons:Pneumonia Inhale 2 puffs every 6 (six) hours as needed for shortness of breath. 6.7 g 4 Active budesonide (Pulmicort) 180 mcg/actuation inhaler Inhale 1 puff 2 (two) times a day. Rinse mouth with water after use to reduce aftertaste and incidence of candidiasis. Do not swallow. 1 each 5 4 Active sod bicarb-sod chlor-neti pot packet with rinse deviceIndicatio ns:Acute Recurrent Sinusitis Unspecified Use Netipot/saline rinse 1-2 times a day to clean sinuses. Use water that is either sterile, distilled, or previously boiled for preparations; do not use tap water. 4 Active fluticasone propionate (Flonase) 50 mcg/actuation nasal sprayIndication s:Acute Recurrent Sinusitis Unspecified 2 spray in each nostril once a day 16 g 4 Active valACYclovir (Valtrex) 1000 mg tablet Take 1 tablet (1,000 mg total) by mouth daily. 90 tablet 3 4 12/05/20 25 Active clonazePAM (KlonoPIN) 0.5 mg tablet Take 1 tablet (0.5 mg total) by mouth 2 (two) times a day as needed for anxiety. 60 tablet 4 Active estradioL (Estrace) 1 mg tablet Take 1 tablet (1 mg total) by mouth daily. 90 tablet 3 4 09/16/20 25 Active clonazePAM (KlonoPIN) 0.5 mg tablet Take 0.5 mg by mouth 2 (two) times a day as needed. 1 09/15/20 24 Discontin ued(Reord er) valACYclovir (VALTREX) 1000 mg tablet Take 1,000 mg by mouth. 3 09/15/20 24 Discontin ued(Reord er) estradioL (ESTRACE) 1 mg tablet Take 1 mg by mouth. 4 09/15/20 24 Discontin ued(Reord er) Active Problems Problem Noted Date Diagnosed Date Sinusitis 01/28/2024 Primary Osteoarthritis Knee Left 01/28/2024 Primary Osteoarthritis Wrist Left 01/28/2024 Primary Osteoarthritis First Carpometacarpal Joint Right Unilateral 01/28/2024 Unilateral Primary Osteoarth ritis First Carpometacarpal Joint Left 01/28/2024 Polyp Colon 01/28/2024 Otitis Media Nonsuppurative Acute Right 01/28/20 24 Other Specified Problems Rel ated To Psychosocial Circumstances 01/28/2024 Other Chest Pain 01/28/2024 Menopausal And Female Climacteric States 024 Hyperlipidemia 01/28/2024 Hidradenitis Suppurativa 01/28/2024 Diarrhea 01/28/2024 Cyst Sebaceous 01/28/2024 Congestion Nasal 01/28/2024 Anogenital Herpesviral Infection Unspecified Acute Upper Respiratory Infection Unspecified Screening Cancer Colon 09/22/2020 Overview (09/22/2020): Added automatically from request for surgery [id number] Hypothyroidism 09/23/2019 Smoking Tobacco Use Personal History 09/23/2019 Pain Wrist Right 08/17/2019 Overview (08/17/2019): Added automatically from request for surgery [id number] Asthma 03/19/2010 Anxiety 03/19/2010 Anemia 03/19/2010 Nicotine Dependence Unspecified 01/21/2007 Pain Thumb Right Resolved Problems Problem Noted Date Diagnosed Date Resolved Date Thyrotoxicosis Unspecified W ithout Thyrotoxic Crisis Or Storm 06/20/2009 09/23/2019 Herpes Genitalis 12/20/2005 09/22/2020 Follow Up Examination Postoperative Visit 10/01/2020 Immunizations Name Administration Dates Next Due Influenza TIV (IM) 09/20/2003 Influenza, Injectable, Mdck, Preservative Free, Quadrivalent 07/17/2023 PCV20 08/28/2023 PPSV23 09/22/2020 RSV: respiratory syncytial v irus (ABRYSVO) bivalent vaccine 08/26/2024 Td (Adult), adsorbed 07/07/2017 Td Preservative Free (TENIVA C, DECAVAC) 07/07/2017 Td, (Adult) Unspecified 07/07/2017 Tdap 03/02/2007 influenza trivalent vaccine (6 months and older)(PF) 08/26/2024 influenza vaccine quad (FLUZONE/FLUARIX) (6 months and older)(PF) 07/17/2023,11/26/2022,08/09/2021,2019,09/16/2019,11/02/2018,09/30/2016 Social History Tobacco Use Types Packs/Day Years Used Date Smoking Tobacco: Every Day Cigarettes Smokeless Tobacco: Never Tobacco Cessation:Ready to Q uit: Not Asked; Counseling Given: Not Answered Alcohol Use Standard Drinks/Week Comments Yes 12 (1 standard drink = 0.6 oz pu re alcohol) [facility] Utilities Answer Date Recorded In the past 12 months has e [employer], [employer], or water [employer] threatened to shut off services in your [...] 11/06/2021 How often do you attend chur ch or mandaeism services? Never 11/06/2021 Do you belong to any clubs o r organizations such as buddhist groups, unions, fraternal or athletic groups, or [...] Answer Date Recorded PHQ-2 Score 2 04/16/2024 [facility] - Occupational [...] place to sleep or slept in a nursing home (including now)? No 11/06/2021 Nutrition Answer Date [...] Sex Assigned at Female 12/02/2019 12:53 PM TYPISTS SUPERVISOR Legal Sex Female 11:06 AM CDT Gender Identity Female 12/02/2019 12:53 PM TYPISTS SUPERVISOR Sexual Orientation Not on file Last Filed Vital Signs Vital Sign Reading Time Taken Comments Blood Pressure 132/81 05/11/2024 3:29 PM CDT Pulse 81 05/11/2024 3:29 PM CDT Temperature 36.8 C (98.2 F) 05/11/2024 3:29 PM CDT Respiratory Rate 16 09/04/2023 3:18 PM TYPISTS SUPERVISOR Oxygen Saturation 99% 09/04/2023 3:18 PM TYPISTS SUPERVISOR Inhaled Oxygen Concentration - - Weight 65.8 kg (145 lb 1 oz) 05/11/2024 3:29 PM CDT Height 168.9 cm (5' 6.5) 05/11/2024 3:29 PM CDT Body Mass Index 23.07 05/11/2024 3:29 PM CDT Plan of Treatment Not on file Procedures Procedure Name Priority Date/Time Associated Diagnosis Comments LIPID PANEL, S Routine 05/11/2024 4:28 PM CDT Hyperlipidemia BASIC METABOLIC PANEL, S/P STAT 06/28/2022 4:18 PM CDT COLONOSCOPY 01/26/2021 11:29 AM CDT HIV-1/-2 AG AND AB SCREEN, PLASMA Routine 09/22/2020 2:40 PM TYPISTS SUPERVISOR Screening Examination For Viral Disease from Last 3 Months or Most Recently Relevant to Health Maintenance Results * (ABNORMAL) Lipid Panel (05/11/2024 4:28 PM CDT) Triglycerides 246(H) mg/dL 05/11/2024 4:55 PM CDT [facility] Comment: ----REFERENCE VALUE---- Normal: <150 mg/dL Borderline High: 150-199 mg/dL High: 200-499 mg/dL Very High: > or =500 mg/dL Cholesterol, Total 287(H) mg/dL 2023 4:55 PM CDT [facility] Comment: ----REFERENCE VALUE---- Desirable: < 200 mg/dL Borderline High: 200 - 239 mg/dL High: > or = 240 mg/dL Cholesterol, LDL, Calculated 158(H) mg/dL 05/11/2024 4:55 PM CDT [facility] Comment: ----REFERENCE VALUE---- Desirable: <100 mg/dL Above Desirable: 100-129 mg/dL Borderline High: 130-159 mg/dL High: 160-189 mg/dL Very High: >=190 mg/dL ----ADDITIONAL INFORMATION---- LDL cholesterol calculated using the Taylor/NIH equation. Cholesterol, HDL 85 >=50 mg/dL 05/11/20 4:55 PM CDT [facility] Cholesterol, Non-HDL, Calculated 202(H) mg/dL 05/11/2024 4:55 PM CDT [facility] Comment: ----REFERENCE VALUE---- Desirable: <130 mg/dL Above Desirable: 130-159 mg/dL Borderline High: 160-189 mg/dL High: 190-219 mg/dL Very High: > or =220 mg/dL Fasting (8 HR or more) No 05/11/2024 4:28 PM CDT [facility] Blood (Blood, Venous) 05/11/2024 4:28 PM CDT 05/11/2024 4:29 PM CDT us Yesica Aceves M.D. LAB BLOOD ADD-ON Final Resu lt [facility] [address] [place] [address], [facility] CNFL [facility] [place] [address] * Basic Metabolic Panel (06/28/2022 4:18 PM CDT) Potassium, P 4.3 3.6 - 5.2 mmol/L 06/28/2022 4:49 PM CDT [facility] Sodium, P 140 135 - 145 mmol/L 06/28/2022 4:49 PM CDT [facility] Chloride, P 105 98 - 107 mmol/L 06/28/2022 4:49 PM CDT [facility] Bicarbonate, P 25 22 - 29 mmol/L 06/28/2022 4:49 PM CDT [facility] Anion Gap, P 10 7 - 15 06/28/2022 4:49 PM CDT [facility] BUN (Blood Urea Nitrogen), P 13 6 - 21 mg/dL 06/28/2022 4:49 PM CDT [facility] Creatinine 0.77 0.59 - 1.04 mg/dL 06/28/2022 4:49 PM CDT [facility] Estimated GFR (eGFR) >90 >=60 mL/min/BSA 06/28/2022 4:49 PM CDT [facility] Comment: Estimated GFR calculated using the 2020 CKD_EPI creatinine equation. Calcium, Total, P 9.2 8.6 - 10.0 mg/dL 06/28/2022 4:49 PM CDT [facility] Glucose, P 104 70 - 140 mg/dL 06/28/2022 4:49 PM CDT [facility] Blood (Blood, Venous) 06/28/2022 4:18 PM CDT 06/28/2022 4:21 PM CDT us Lauryn Sams APRN CAhmetNAhmetPAhmet LAB BLOOD ADD-O N Final Result [facility] [address] [place] [id number], [facility] CNFL [facility] [place] [address] * COLONOSCOPY (01/26/2021 11:29 AM CDT) Narrative Procedure Note Herrera Moses M.D. - 01/26/2021 11:29 AM CDT [facility] GI Patient Name: Pily Leal Procedure Date: 01/26/2021 11:29 AM Date of : 1970 Age: 50 Gender: Female Procedure: Colonoscopy Providers: Yesica San (Ordering Provider) Referring Provider: Yesica Aceves Pre-op Diagnoses: Screening for colorectal malignant neoplasm Post-op Diagnoses: - One 4 mm polyp in the sigmoid colon, removed with a cold snare. Resected and retrieved. - Diverticulosis in the sigmoid colon and in the descending colon. Recommendation: - Discharge patient to home. - High fiber diet for the rest of the patient's life. - Use fiber, for example Citrucel, Fibercon, Konsyl or Metamucil. - Await pathology results. - Repeat colonoscopy in 5 years for surveillance. - Return to primary care physician PRN. Findings: The perianal and digital rectal examinations were normal. A 4 mm polyp was found in the sigmoid colon. The polyp was sessile.The polyp was removed with a cold snare. Resection and retrieval were complete. Estimated blood loss was minimal. Multiple small and large-mouthed diverticula were found in thesigmoid colon and descending colon. No additional abnormalities were found on retroflexion. Medicines: Propofol per Anesthesia Estimated Blood Loss: Estimated blood loss was minimal. Complications: No immediate complications. Estimated blood loss: Minimal. Procedure Details: The patient was seen, evaluated, and history reviewed. Airway and heart and lung exams were performed and were satisfactory for plannedsedation care. The risks, benefits and alternatives for the procedure and sedation were discussed andinformed consent was obtained. A procedural pause was conducted in the presence of assisting personnelto verify the correct patient identity and procedureto be performed. Throughout the procedure, the patient's blood pressure, pulse, and oxygen saturations were monitored continuously. The 45 [id number] was introduced under direct vision through the anus and advanced tothe cecum, identified by appendiceal orifice and ileocecal valve. The colonoscopy was performed without difficulty. The patient tolerated the procedure well. The quality of the bowelpreparation was evaluated using the BBPS (Mccomb Bowel Preparation Scale) with scores of: Right Colon =3, Transverse Colon = 3 and Left Colon = 3 (entire mucosa seen well with no residual staining, small fragments of stool or opaque liquid). The totalBBPS score equals 9. Sedation: Anesthesia was administered by an anesthesia professional. Thefollowing parameters were monitored: oxygen saturation, heart rate, blood pressure, respiratory rate, EKG, adequacy of pulmonary ventilation,and response to care. Herrera Moses, 01/26/2021 12:03:51 PM This report has been signed electronically. Number of Addenda: 0 Note Initiated On: 01/26/2021 11:29 AM us Yesica Aceves M.D. GI PROCEDURE ORDERABLES Fin al Result * HIV-1/-2 Ag and Ab Screen, Plasma (09/22/2020 2:40 PM TYPISTS SUPERVISOR) HIV Ag/Ab Screen, P Negative Negative 09/25/2020 10:46 AM TYPISTS SUPERVISOR [facility] Comment: Negative result does not rule out HIV infection. If exposure to HIV infection occurred <14 days ago, contact the laboratory to request addition of HIV-1 RNA detection / quantification test. HIV-1 p24 Ag Screen, P Negative Negative 09/25/2020 10:46 AM TYPISTS SUPERVISOR [facility] Comment: Negative result does not rule out HIV infection. If exposure to HIV infection occurred <14 days ago, contact the laboratory to request addition of HIV-1 RNA detection / quantification test. HIV-1 Ab Screen, P Negative Negative 2019 10:46 AM TYPISTS SUPERVISOR [facility] Comment: Negative result does not rule out HIV infection. If exposure to HIV infection occurred <14 days ago, contact the laboratory to request addition of HIV-1 RNA detection / quantification test. HIV-2 Ab Screen, P Negative Negative 2019 10:46 AM TYPISTS SUPERVISOR [facility] Comment: Negative result does not rule out HIV infection. If exposure to HIV infection occurred <14 days ago, contact the laboratory to request addition of HIV-1 RNA detection / quantification test. Blood (Blood, Venous) 09/22/2020 2:40 PM TYPISTS SUPERVISOR 09/22/2020 9:14 PM TYPISTS SUPERVISOR us Yesica Aceves M.D. LAB MICROBIOLOGY - BLOOD OR DERABLES Final Result [facility] [address] [place] [address], [facility] ECLR [facility] [address] from Last 3 Months or Most Recently Relevant to Health Maintenance Insurance [facility] Care Teams Retail Stock Clerk Relationship Specialty Start Date End Date Bambi Roberson APRN, C.N.P., D.N.P. PCP - General Family Medicine 05/13/24
--- OUTSIDE RECORDS SUMMARY | 2024-10-14 14:19 | XMS_ITS ---
Author Organization [facility] Address [address] [place] [address] Care Team Providers Care Library Customer Service Clerk Name Role Phone Unavailable Unavailable Unavailable Surgery Details Not on file Complications Check Surgery Details section. Procedure Estimated Blood Loss Check Surgery Details section. Procedure Findings Check Surgery Details section. Procedure Specimens Taken Check Surgery Details section.
--- OUTSIDE RECORDS SUMMARY | 2024-10-14 14:19 | XMS_ITS | Clinical Summary ---
Author Organization [facility] Address [address] [place] [address] Care Team Providers Care Miscellaneous Machine Operator Name Role Phone Bambi Roberson APRN, C.N.P., D.N.P. Primary Ca re Provider Unavailable Source Comments Patient records contain information from all sites at [facility]. For routine questions regarding patient records, call [phone] during business hours, M-F 8:00 AM - 5:00 PM Central Time. Record requests for emergency care only can be directed to [phone] at any time.[facility] Allergies No known active allergies Medications * [...] (09/22/2020): Added automatically from request for surgery [id number] Hypothyroidism 09/23/2019 Smoking Tobacco Use Personal History 09/23/2019 Pain Wrist Right 08/17/2019 Overview (08/17/2019): Added automatically from request for surgery [id number] Asthma 03/19/2010 Anxiety 03/19/2010 Anemia 03/19/2010 Nicotine Dependence Unspecified 01/21/2007 Pain Thumb Right Resolved Problems Problem Noted Date Diagnosed Date Resolved Date Thyrotoxicosis Unspecified W ithout Thyrotoxic Crisis Or Storm 06/20/2009 09/23/2019 Herpes Genitalis 12/20/2005 09/22/2020 Follow Up Examination Postoperative Visit 10/01/2020 Encounters Date Type Department Care Team Description 09/23/2024 5:30 PM MANUFACTURING TECHNOLOGY PROFESSOR Telemedicine [facility] at [address] [phone] Debo Lindo M.D. Pharyngitis Acute (Primary Dx) 09/22/2024 2:30 PM MANUFACTURING TECHNOLOGY PROFESSOR Telemedicine [facility] at [address] [phone] Cathie Glass M.D. Pharyngitis Acute (Primary Dx) 08/26/2024 3:00 PM MANUFACTURING TECHNOLOGY PROFESSOR Nurse Only Department of Family Medicine, [facility], [address] [phone] Yeisca Aceves M.D. Williams, Jessica J L.P.NAhmet Nurse Visit (RSV Vaccine ) Discharge Disposition: Home or Self Care 08/17/2024 5:00 PM MANUFACTURING TECHNOLOGY PROFESSOR Telemedicine [facility] at [address] [phone] Eva Bond M.D. Acute Recurrent Sinusitis Unspecified (Primary Dx) 08/17/2024 Nurse Triage Department of Family Medicine, [facility], in [address] [phone] Pippa Carrillo, R.NAhmet Sinusitis; Earache; Sore Throat 08/17/2024 Nurse Triage Department of Family Medicine, [facility], in [address] [phone] Hema Lovett RAhmetNAhmet Sinus Symptoms from Last 3 Months Immunizations Name Administration Dates Next Due Influenza [...] quad (FLUZONE/FLUARIX) (6 months and older)(PF) 07/17/2023,11/26/2022,08/09/2021,2019,09/16/2019,11/02/2018,09/30/2016 Family History Medical History Relation Name Comments Hyperthyroidism Brother Hypothyroidism Sister Anesthesia problems Neg Hx Relation Name Status Comments Brother Sister Social History Tobacco Use Types Packs/Day Years Used Date Smoking Tobacco: Every Day Cigarettes Smokeless Tobacco: Never Tobacco Cessation:Ready to Q uit: Not Asked; Counseling Given: Not Answered Alcohol Use Standard Drinks/Week Comments Yes 12 (1 standard drink = 0.6 oz pu re alcohol) [facility] Utilities Answer Date Recorded In the past 12 months has e [employer], gas, oil, or water [employer] threatened to shut off services in your [...] often do you attend chur ch or samaritan services? Never 11/06/2021 Do you belong to any clubs o r organizations such as islam groups, unions, fraternal or athletic groups, or [...] Answer Date Recorded PHQ-2 Score 2 04/16/2024 [facility] Occupational Stress Questionnaire Answer [...] place to sleep or slept in a long term (including now)? No 11/06/2021 Nutrition Answer Date [...] Sex Assigned at Female 12/02/2019 12:53 PM MANUFACTURING TECHNOLOGY PROFESSOR Legal Sex Female 11:06 AM CDT Gender Identity Female 12/02/2019 12:53 PM MANUFACTURING TECHNOLOGY PROFESSOR Sexual Orientation Not on file Last Filed Vital Signs Vital Sign Reading Time Taken Comments Blood Pressure 132/81 05/11/2024 3:29 PM CDT Pulse 81 05/11/2024 3:29 PM CDT Temperature 36.8 C (98.2 F) 05/11/2024 3:29 PM CDT Respiratory Rate 16 09/04/2023 3:18 PM MANUFACTURING TECHNOLOGY PROFESSOR Oxygen Saturation 99% 09/04/2023 3:18 PM MANUFACTURING TECHNOLOGY PROFESSOR Inhaled Oxygen Concentration - - Weight 65.8 kg (145 lb 1 oz) 05/11/2024 3:29 PM CDT Height 168.9 cm (5' 6.5) 05/11/2024 3:29 PM CDT Body Mass Index 23.07 05/11/2024 3:29 PM CDT Plan of Treatment Health Maintenance Due Date Last Done Comments CT Colonography 1970 Cologuard 1970 Hepatitis C Screening 1970 Mammogram 1970 Hepatitis B Vaccines (1 of 3 - 19+ 3-dose series) 1989 Zoster Vaccines (1 of 2) 2020 Tobacco Cessation counseling 09/22/2021 09/22/2020 COVID-19 Vaccine ( - season) 2024 Depression Screening (Annual PHQ-2) 10/13/2024 Lipid (Cholesterol) Screening 05/11/2025 05/11/2024, 09/22/2020 Fasting Glucose for Diabetes Screening 06/28/2025 06/28/2022, 09/22/2020, 09/16/2019 Colonoscopy 01/26/2026 01/26/2021 Colorectal Cancer Surveillance 01/26/2026 DTaP,Tdap,and Td Vaccines (5 - Td or Tdap) 07/07/2027 07/07/2017, 07/07/2017, 07/07/2017, Additional history exists HIV Screening Completed 09/22/2020 Pneumococcal vaccine (50+ years) Completed 08/28/2023, 09/22/2020 Influenza Vaccine Completed 08/26/2024, , 07/17/2023, Additional history exists IPV Vaccines Aged Out No longer eligi ble based on patient's age to complete this topic Procedures Procedure Name Priority Date/Time Associated Diagnosis Comments LIPID PANEL, S Routine 05/11/2024 4:28 PM CDT Hyperlipidemia BASIC METABOLIC PANEL, S/P STAT 06/28/2022 4:18 PM CDT COLONOSCOPY 01/26/2021 11:29 AM CDT HIV-1/-2 AG AND AB SCREEN, PLASMA Routine 09/22/2020 2:40 PM MANUFACTURING TECHNOLOGY PROFESSOR Screening Examination For Viral Disease from Last 3 Months or Most Recently Relevant to Health Maintenance Results * (ABNORMAL) Lipid Panel (05/11/2024 4:28 PM CDT) Triglycerides 246(H) mg/dL 05/11/2024 4:55 PM CDT CNFL Comment: ----REFERENCE VALUE---- Normal: <150 mg/dL Borderline High: 150-199 mg/dL High: 200-499 mg/dL Very High: > or =500 mg/dL Cholesterol, Total 287(H) mg/dL 2023 4:55 PM CDT CNFL Comment: ----REFERENCE VALUE---- Desirable: < 200 mg/dL Borderline High: 200 - 239 mg/dL High: > or = 240 mg/dL Cholesterol, LDL, Calculated 158(H) mg/dL 05/11/2024 4:55 PM CDT CNFL Comment: ----REFERENCE VALUE---- Desirable: <100 mg/dL Above [...] M.D. LAB BLOOD ADD-ON Final Resu lt [facility] [address] [place] [id number], [facility] CNFL [facility] in [address] [address] * Basic Metabolic Panel (06/28/2022 4:18 PM [...] 06/28/2022 4:21 PM CDT us Lauryn Sams APRN, C.N.P. LAB BLOOD ADD-O N Final Result [facility] [address] [place] [address], [facility] CNFL [facility] in [address] [address] * COLONOSCOPY (01/26/2021 11:29 AM CDT) Narrative Procedure Note Herrera Moses M.D. - 01/26/2021 11:29 AM CDT [facility] Patient Name: Pily Leal Procedure Date: [...] saturations were monitored continuously. The 45 [id number] was introduced under direct vision through the anus and advanced tothe cecum, identified by appendiceal orifice and ileocecal valve. The colonoscopy was performed without difficulty. The patient tolerated the procedure well. The quality of the bowelpreparation was evaluated using the BBPS (Howe Bowel Preparation Scale) with scores of: Right [...] 0 Note Initiated On: 01/26/2021 11:29 AM Yesica Aceves M.D. GI PROCEDURE ORDERABLES Fin al Result * HIV-1/-2 Ag and Ab Screen, Plasma (09/22/2020 2:40 PM MANUFACTURING TECHNOLOGY PROFESSOR) HIV Ag/Ab Screen, P Negative Negative 09/25/2020 10:46 AM MANUFACTURING TECHNOLOGY PROFESSOR ECLR Comment: Negative result does not rule out HIV infection. If exposure to HIV infection occurred <14 days ago, contact the laboratory to request addition of HIV-1 RNA detection / quantification test. HIV-1 p24 Ag Screen, P Negative Negative 09/25/2020 10:46 AM MANUFACTURING TECHNOLOGY PROFESSOR ECLR Comment: Negative result does not rule out HIV infection. If exposure to HIV infection occurred <14 days ago, contact the laboratory to request addition of HIV-1 RNA detection / quantification test. HIV-1 Ab Screen, P Negative Negative 2019 10:46 AM MANUFACTURING TECHNOLOGY PROFESSOR ECLR Comment: Negative result does not rule out HIV infection. If exposure to HIV infection occurred <14 days ago, contact the laboratory to request addition of HIV-1 RNA detection / quantification test. HIV-2 Ab Screen, P Negative Negative 2019 10:46 AM MANUFACTURING TECHNOLOGY PROFESSOR ECLR Comment: Negative result does not rule out HIV infection. If exposure to HIV infection occurred <14 days ago, contact the laboratory to request addition of HIV-1 RNA detection / quantification test. Blood (Blood, Venous) 09/22/2020 2:40 PM MANUFACTURING TECHNOLOGY PROFESSOR 09/22/2020 9:14 PM MANUFACTURING TECHNOLOGY PROFESSOR us Yesica Aceves M.D. LAB MICROBIOLOGY - BLOOD OR DERABLES Final Result [facility] [address] [place] [id number], [facility] ECLR [facility] [place] [address] from Last 3 Months or Most Recently Relevant to Health Maintenance Insurance [facility] Care Teams Miscellaneous Machine Operator Relationship Specialty Start Date End Date Bambi Roberson APRN, C.N.P., D.N.P. PCP - General Family Medicine 05/13/24
--- OUTSIDE RECORDS SUMMARY | 2024-10-14 14:19 | XMS_ITS | Encounter Summary ---
Author Organization [facility] Address [address] [place] [address] Care Team Providers Care Chief Compressor Station Engineer Name Role Phone Bambi Roberson APRN, C.N.P., D.N.P. Primary Ca re Provider Unavailable Reason for Visit * Reason Comments Sore Throat Encounter Details Date Type Department Care Team (Late st Contact Info) Description 09/23/2024 5:30 PM DIRECTOR OF PHYSIOTHERAPY SERVICES Telemedicine [facility] at [facility] [address] [place] [address] Debo Lindo M.D. [address] [place] [address] Pharyngitis Acute (Primary Dx) Social History Tobacco Use Types Packs/Day Years Used Date Smoking Tobacco: Every Day Cigarettes Smokeless Tobacco: Never Alcohol Use Standard Drinks/Week Comments Yes 12 (1 standard drink = 0.6 oz pu re alcohol) [facility] Utilities Answer Date Recorded In the past 12 months [facility] [employer] gas, oil, or water [employer] threatened to shut off services in your [...] often do you attend chur ch or mormon services? Never 11/06/2021 Do you belong to any clubs o r organizations such as presybeterian groups, unions, fraternal or athletic groups, or [...] Answer Date Recorded PHQ-2 Score 2 04/16/2024 [facility] Occupat ional Health - Occupational Stress [...] place to sleep or slept in a usp (including now)? No 11/06/2021 Nutrition Answer Date [...] Sex Assigned at Female 12/02/2019 12:53 PM DIRECTOR OF PHYSIOTHERAPY SERVICES Legal Sex Female 11:06 AM CDT Gender Identity Female 12/02/2019 12:53 PM DIRECTOR OF PHYSIOTHERAPY SERVICES Sexual Orientation Not on file documented as of this encounter Progress Notes * Debo Lindo M.D. - 09/23/2024 5:30 PM CST SUBJECTIVE Consult conducted via real-time audio/video technology by Debo Lindo M.D. working in the [facility] location to the patient's home. Chief Complaint Patient presents with Sore Throat HISTORY OF PRESENT ILLNESS 54 years-old Female presenting with Sore throat. - Quality: Burning - Severity: Severe - Made worse by: Swallowing - Trend: It's worsening - Started: Gradually - Exact starting time: 1 Weeks ASSOC. SYMPTOMS / EXPOSURE - Headache - Severity: Severe - Made worse by: Changing positions, Coughing - Started: Gradually - Location: Forehead, Scalp - Fever - Maximal: 99.9 - Runny nose - Quality: Watery - Color: Clear, Yellow - Fatigue - Hoarseness - Chills - Difficulty swallowing - Lymph node swelling - Exposure to sick people - White spots in throat NOTE FROM PATIENT: - Respiratory - Sep 23, 2024 - History of asthma or regular inhaler usage ?? - No COVID-19 in last 6 months (or knowledge thereof) - No COVID-19 booster shot in the last 6 months - Negative (antigen/PCR) COVID-19 test since symptoms started - No at-home influenza test done since symptom onset ?? Strep pharyngitis - Sep 23, 2024 - Recent exposure to someone with positive strep test ?? - Hasn't done a rapid strep test/throat culture since symptoms started ?? - Centor score: 3 (Tonsillar Exudate (Reported by patient), Lymphadenopathy, Denies cough) Sinus - Sep 23, 2024 - Has seasonal allergies - Gets regular sinus infections ?? - No similarity to previous sinus infections - Tried remedies like steam, saline or decongestants since symptoms started - No antibiotics used since symptoms started & intake - Sep 23, 2024 - Denies - Not DENIES SYMPTOMS - PULM X Cough X Shortness of breath - NEURO X Dizziness - HEENT X Ear pain X Nasal congestion X Sneezing X Phlegm - CARDIAC X Chest pain - MUSCULOSKELETAL X Muscle pain - GENERAL X Malaise - OTHER X Loss of taste or smell X COVID-19 exposure Grandson tested positive for strept throat. Patient was taking care of grandson for about 1 week. Patient experiencing body aches and headaches. Past Medical History: Diagnosis Date Herpes Genitalis [...] No current facility-administered medications for this visit. REVIEW OF SYSTEMS All systems reviewed with pertinent positives/negatives documented above in HPI; all other review of systems negative. OBJECTIVE Physical Exam General: AAO x 3. Appears well-developed and well-nourished. Does not appear to be in acute respiratory distress. Speaking in complete sentences. Pulmonary: Effort appears normal. Skin: Appears to be intact and dry with no rash, erythema or lesions. Psychiatric: Normal mood and affect. Behavior is normal. Judgement and thought content normal. ASSESSMENT / PLAN #1 Pharyngitis Acute Patient complaining of sore throat. Requesting antibiotic given she's not able to come in and complete her test. She was exposed to her grandson. I recommend testing before treatment. Patient states she already is doing all home remedies. Will wait for testing FOLLOW-UP No follow-ups on file. We have [...] Aged Out Addressed HM during this visit NO Were any chronic conditions identified (outside of ones treated today) that need to be addressed? No CTOR OF PHYSIOTHERAPY SERVICES documented in this encounter Plan of Treatment Not on file documented as of this encounter Visit Diagnoses Diagnosis Pharyngitis Acute- Primary documented in this encounter Care Teams Chief Compressor Station Engineer Relationship Specialty Start Date End Date Bambi Roberson APRN, C.N.P., D.N.P. PCP - General Family Medicine 05/13/24 documented as of this encounter
[2024-10-14 14:23] VITALS: BP 149/92; PULSE 78; RESP 18; TEMP 36.6; O2SAT 100; BMI 22.8
--- NOTE | 2024-10-14 14:52 | CRLHL7_ITS ---
For Patients: As a result of the Century Cures Act, medical imaging exams and procedure reports are released immediately into your electronic medical record. You may view this report before your referring provider. If you have questions, please contact your health care provider. INDICATION: Cough COMPARISON: 05/04/2024 chest radiograph TECHNIQUE: Two radiographic view(s) of the chest. FINDINGS: No pleural effusion. No pneumothorax. No definite focal pulmonary consolidation. Normal heart size. There are osseous degenerative changes. No acute osseous findings. IMPRESSION: No acute thoracic findings. Dictated by Dawson Bhatia MD @ 10/14/2024 3:14:55 PM (Electronically Signed)
--- NOTE | 2024-10-14 14:55 | ED.GENADULT ---
HPI - General Adult General Chief complaint: Sore Throat Stated complaint: Poss Strep, lung congestion Time Seen by Provider: 10/14/24 14:22 History of Present Illness HPI narrative: This 54-year-old female comes in reporting throat soreness for more than a month. She states that someone nearby her had strep infection about a month ago. She states that she also has a cough. She does not report any shortness of breath and has not measured any fevers. She states that she has decreased energy recently. She arrives here with normal vital signs. She states that she is very busy at home as she is taking care of her who has ALS. Related Data Previous Rx's ?Medication ?Instructions ?Recorded estradiol 1 mg tablet 1 mg PO QDAY #90 tabs 11/10/23 valacyclovir 1 gram tablet 1,000 mg PO QDAY #30 tabs 06/23/24 methylprednisolone 4 mg tablets in See Rx Instructions PO .COMPLEX 10/14/24 a dose pack (Medrol (Chuck)) #21 ea Allergies Allergy/AdvReac Type Severity Reaction Status Date / Time No Known Drug Allergies Allergy Verified 02/05/24 15:28 Review of Systems Status of ROS: Reports: 10 or more systems reviewed and unremarkable except as noted in History and below Narrative: Constitutional: No fevers, no weight gain or loss. Eyes: No discharge. No vision changes. HENT: No congestion, no ear pain. Mild sore throat. Cardiovascular: No chest pain, no palpitations. Respiratory: No shortness of breath, no wheezes productive cough. Gastrointestinal: No abdominal pain, no vomiting, no diarrhea. Genitourinary: No dysuria, no hematuria. Musculoskeletal: Normal range of motion. Skin: No rashes, no pruritis. Neurological: No dizziness, weakness, sensory change, speech change. Endo/Heme/Allergies: No bruising or bleeding. No polydipsia. Pysch: no suicidality, no anxiety, no insomnia. All other systems reviewed and are negative. [facility] Medical History (Updated 10/14/24 @ 16:04 by Gio Yu MD) Persistent cough ?R05.3 - Chronic cough (ICD-10) Polyp of colon ?K63.5 - Polyp of colon (ICD-10) Chest pain ?R07.9 - Chest pain, unspecified (ICD-10) Primary osteoarthritis, right wrist ?M19.031 - Primary osteoarthritis, right wrist (ICD-10) Encounter for pre-operative examination ?Z01.818 - Encounter for other preprocedural examination (ICD-10) Surgical History History of hand surgery ?Z98.890 - Other specified postprocedural states (ICD-10) History of surgery on lower extremity (12/31/18) ?Z98.890 - Other specified postprocedural states (ICD-10) H/O arthroscopy of left knee ?Z98.890 - Other specified postprocedural states (ICD-10) S/P excisional debridement (01/06/06) ?Z98.890 - Other specified postprocedural states (ICD-10) History of total hysterectomy with bilateral salpingo-oophorectomy (BSO) (08/06/16) ?Z90.710 - Acquired absence of both cervix and uterus (ICD-10) ?Z90.722 - Acquired absence of ovaries, 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) ?Z90.79 - Acquired absence of other genital organ(s) (ICD-10) Status post wrist surgery (2018) ?Z98.890 - Other specified postprocedural states (ICD-10) Status post arthroscopy of right knee ?Z98.890 - Other specified postprocedural states (ICD-10) Status post abdominoplasty (03/19/10) ?Z98.890 - Other specified postprocedural states (ICD-10) History of dilation and curettage (01/12/13) ?Z98.890 - Other specified postprocedural states (ICD-10) Family History Maternal Grandmother Stroke Diabetes Heart disease Mother Mental disor NEC oth dis Sister Mental disor NEC oth dis Social History Narrative: Smoker 15 cigarettes per day for 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 20 years 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 Smoking Status: Current every day smoker What tobacco products do you use: cigarettes Smoking packs per day: 0.5 Smoking cigarettes per day: 10.0 Do you use any of these nicotine containing products: None Second hand tobacco smoke exposure: No How often do you have a drink containing alcohol: 2-3 times a week How many standard drinks containing alcohol do you have on a typical day: 1 or 2 How often do you have six or more drinks on one occasion: Never AUDIT-C Alcohol total score: 3 Non-prescribed substance use: denies use service: No Exam Const: Vital Signs, click to edit/add: Vital Signs - 24 hr 10/14/24 14:23 Temperature 97.9 F Pulse Rate [Pulse Oximeter] 78 Respiratory Rate 18 Blood Pressure [Ri ght Upper Arm] 149/92 H Pulse Oximetry 100 Oxygen Delivery Me thod Room Air Course Vital Signs Vital signs: Initial Vital Signs Temperature 97.9 F 10/14/24 14:23 Temperature Source Temporal Artery Scan 10/14/24 14:23 Pulse Rate 78 10/14/24 14:23 Pulse Rhythm Regular 10/14/24 14:23 Respiratory Rate 18 10/14/24 14:23 Blood Pressure 149/92 H 10/14/24 14:23 Blood Pressure Mean 111 H 10/14/24 14:23 Blood Pressure Position Sitting 10/14/24 14:23 Pulse Oximetry 100 10/14/24 14:23 Oxygen Delivery Method Room Air 10/14/24 14:23 Vital Signs Temperature 97.9 F 10/14/24 14:23 Pulse Rate 78 10/14/24 14:23 Respiratory Rate 18 10/14/24 14:23 Blood Pressure 149/92 H 10/14/24 14:23 Pulse Oximetry 100 10/14/24 14:23 Oxygen Delivery Method Room Air 10/14/24 14:23 Temperature 97.9 F 10/14/24 14:23 Pulse Rate 78 10/14/24 14:23 Respiratory Rate 18 10/14/24 14:23 Blood Pressure 149/92 H 10/14/24 14:23 Pulse Oximetry 100 10/14/24 14:23 Oxygen Delivery Method Room Air 10/14/24 14:23 Medical Decision Making MDM Narrative Medical decision making narrative: This patient comes in reporting sore throat and generalized fatigue and weakness as described above. Chest x-ray is obtained and returns with no acute findings. Additionally lab results are acquired and these also are reassuring. Her strep test is negative. The patient is now requesting a mono test at the time of discharge. She does need to return home to resume cares for her . She can be called with results if it is positive. She did receive an oral dose of dexamethasone and I did provide a prescription for Medrol Dosepak. Lab Data Labs: Lab Results 10/14/24 10/14/24 Range/Units 14:30 15:17 WBC 8.81 (4.50-11.00) K/uL RBC 3.95 L (4.00-5.20) m/uL Hgb 14.1 (12.0-16.0) gm/dL Hct 41.4 (33.0-51.0) % MCV 105 H (80-100) fL MCH 36 H (26-34) pg MCHC 34 (32-36) gm/dL RDW Coeff of Joselito 12.5 (11.5-15.5) % Plt Count 284 (140-440) K/uL Neut % (Auto) 64.8 (42.0-72.0) % Lymph % (Auto) 26.6 (20-44) % Valencia % (Auto) 6.9 (0.0-11.0) % Eos % (Auto) 1.2 (0.0-7.0) % Baso % (Auto) 0.3 (0.0-3.0) % Neut # (Auto) 5.70 (1.7-7.0) K/uL Lymph # (Auto) 2.34 (0.90-2.90) K/uL Valencia # (Auto) 0.60 (0.00-0.90) K/UL Eos # (Auto) 0.11 (0.00-0.50) K/uL Baso # (Auto) 0.03 (0.00-0.30) K/uL Abs Immat Gran (auto) 0.02 (0.00-0.30) K/uL Imm/Tot Granulo (auto) 0.2 % Sodium 136 (135-149) mmol/L Potassium 4.2 (3.6-5.1) mmol/L Chloride 106 (96-114) mmol/L Carbon Dioxide 26 (20-32) mmol/L Anion Gap 4 L (7-15) mEq/L BUN 14 (7-30) mg/dL Creatinine 0.6 (0.5-1.5) mg/dL Estimated Creat Clear 100.34 Estimated GFR 107 ml/min Glucose 103 (60-115) mg/dL Calcium 9.3 (8.4-10.6) mg/dL Group A Strep DNA NOT DETECTED (Not Detectd) Imaging Data Chest x-ray: Radiologist's impression: No acute thoracic findings. Discharge Plan Discharge Clinical Impression: Acute upper respiratory infection Patient Disposition: Home, Self-Care Condition: Stable Additional Instructions: Take medication as prescribed. Use [id number] medicines also as needed and directed. Follow up with MD return if worsening. Prescriptions: New methylprednisolone [Medrol (Chuck)] 4 mg tablets,dose pack See Rx Instructions .ROUTE .COMPLEX Qty: 21 0RF Rx Instructions: orally per package directions No Action estradiol 1 mg tablet 1 mg PO QDAY Qty: 90 1RF valacyclovir 1 gram tablet 1,000 mg PO QDAY Qty: 30 0RF Rx Instructions: For treatment of suppression Follow Up/Referrals: Provider,Not a Local [Non-Staff] - Stand Alone Forms: MyHealth Info Instructions
[2024-10-14 15:01] LABS: Strep A DNA Probe* NOT DETECTED (Not Detectd)
[2024-10-14 15:25] LABS: Basophils Absolute Auto 0.03 K/uL (0.00-0.30); Basophils Percent Auto 0.3 % (0.0-3.0); Eosinophils Absolute Auto 0.11 K/uL (0.00-0.50); Eosinophils Percent Auto 1.2 % (0.0-7.0); Hematocrit 41.4 % (33.0-51.0); Hemoglobin* 14.1 gm/dL (12.0-16.0); Immature Granulocytes Abs Auto 0.02 K/uL (0.00-0.30); Immature Granulocytes Pct Auto 0.2 %; Lymphocytes Absolute Auto 2.34 K/uL (0.90-2.90); Lymphocytes Percent Auto 26.6 % (20-44); Mean Corpuscular HGB Conc 34 gm/dL (32-36); Mean Corpuscular Hemoglobin 36 pg (26-34); Mean Corpuscular Volume 105 fL (80-100); Monocytes Percent Auto 6.9 % (0.0-11.0); Neutrophils Percent Auto 64.8 % (42.0-72.0); Platelet Count* 284 K/uL (140-440); RDW Coefficient of Variation % 12.5 % (11.5-15.5); Red Blood Count 3.95 m/uL (4.00-5.20); White Blood Count* 8.81 K/uL (4.50-11.00)
[2024-10-14 15:36] LABS: Chloride* 106 mmol/L (96-114); Potassium* 4.2 mmol/L (3.6-5.1); Sodium* 136 mmol/L (135-149)
[2024-10-14 15:39] LABS: Anion Gap 4 mEq/L (7-15); Blood Urea Nitrogen* 14 mg/dL (7-30); Carbon Dioxide* 26 mmol/L (20-32); Creatinine* 0.6 mg/dL (0.5-1.5); Est. Creatinine Clearance* 100.34; Estimated Glomerular Filt Rate 107 ml/min
[2024-10-14 15:40] LABS: Calcium* 9.3 mg/dL (8.4-10.6); Glucose* 103 mg/dL (60-115)
--- OUTSIDE RECORDS SUMMARY | 2024-10-14 15:43 | XMS_ITS | Continuity of Care Document ---
Author Name [facility] Organization [facility] Care Team Providers Care Stereotyper Apprentice Name Role Phone [facility] Unavailable Unavailable Problems Combined list of problems from Department of Defense and Veterans [facility] facilities. It does not include entries that were removed or entered in error. Problem Status Onset Date Problem Type Date of Resolution Comments Source Diagnosis: ICD-10-CM Z65.8 Oth problems related to psychosocial circumstances Active Diagnosis [facility] Diagnosis: ICD-10-CM Z71.89 Other specified counseling Active Diagnosis [facility] Encounters Combined list of: 1) Encounters from Department of Veterans Affairs facilities going back up to thelast 18 months. 2) Encounters from the Department of Defense facilities going back up to 280 months. Location Location Details Encounter Type Encounter Number Reason For Visit Attending Provider ADM Date DC Date Status Disposition Source [place] [facility] Outpatient Encounter [id number] 05/01 [facility] [place] [facility] Outpatient Encounter [id number] 05/16 [facility] [place] [facility] HC PRO PHONE CALL 11-20 MIN [id number] Diagnos is: ICD-10- CM Z71.89 Other specifi ed after school counselor ing<br/ > MAHESH-BU SS,SANTI 05/28 [facility] [place] [facility] FAMILY PSYTX W/O PT 50 MIN [id number] Diagnos is: ICD-10- CM Z71.89 Other specifi ed after school counselor ing<br/ > MAHESH-BU SS,SANTI 05/29 [facility] [place] [facility] FAMILY PSYTX W/O PT 50 MIN [id number] Diagnos is: ICD-10- CM Z71.89 Other specifi ed after school counselor ing<br/ > MAHESH-BU SS,SANTI 06/05 [facility] [place] [facility] Outpatient Encounter [id number] 06/12 [place] [facility] [place] [facility] Outpatient Encounter [id number] 06/26 [place] [facility] [place] [facility] HC PRO PHONE CALL 5-10 MIN [id number] Diagnos is: ICD-10- CM Z65.8 Oth problem s related to psychos ocial circums tances< br/> MALCHERMansi,M JAGRUTI 07/24 [place] [facility] [place] [facility] Outpatient Encounter [id number] 07/31 [place] [facility] [place] [facility] Outpatient Encounter [id number] 08/12 [place] [facility] [place] [facility] Outpatient Encounter [id number] 09/17 [place] [facility] [place] [facility] Outpatient Encounter [id number] 12/10 [place] [facility] [place] [facility]REAS SESS[facility] [id number] Diagnos is: ICD-10- CM Z65.8 Oth problem s related to psychos ocial circums tances< br/> GODBEY,GEE ELI 04/22 [place] [facility] [place] [facility] Outpatient Encounter [id number] Diagnos is: ICD-10- CM Z65.8 Oth problem s related to psychos ocial circums tances< br/> GODBEY,GEE ELI 05/05 [place] [facility] [place] [facility] Outpatient Encounter [id number] Diagnos is: ICD-10- CM Z65.8 Oth problem s related to psychos ocial circums tances< br/> GODBEY,GEE ELI 07/29 [place] [facility] [place] [facility]AS SESS[facility] [id number] Diagnos is: ICD-10- CM Z65.8 Oth problem s related to psychos ocial circums tances< br/> GERARD HER 08/03 [facility]
--- OUTSIDE RECORDS SUMMARY | 2024-10-14 15:43 | XMS_ITS | Clinical Summary ---
Author Organization [facility] Address [place], [place] [address] Care Team Providers Care Tow Driver Name Role Phone Pcp, No Primary Care [...] Comments Blood Pressure 137/90 11/02/2013 2:20 PM SHOT BLASTER Pulse 77 11/02/2013 2:20 PM SHOT BLASTER Temperature 36.6 C (97.8 F) 10/25/2009 4:10 PM SHOT BLASTER Respiratory Rate 18 11/27/2006 3:30 PM SHOT BLASTER Oxygen Saturation 99% 10/25/2009 4:10 PM SHOT BLASTER Inhaled Oxygen Concentration - - Weight 59.9 kg (132 lb) 10/25/2009 4:10 PM SHOT BLASTER Height - - Body Mass Index - [...] (03/19/2010 9:03 AM CDT) CYTOLOGY CYTOPATHOLOGY REPORT [facility] Status: Final Status [id number] CLINICAL INFORMATION Last Date of LMP :03/07/10 Last Pap Date :2005 Last Pap Result :? [place]/Bx done today :No HPV Request :HPV if [...] malignant lesions. COLLECTED:03/19/10 ACCESSIONED: 03/21/10 SIGNED: 03/23/10 [facility] PAP [place] CODE NIL [facility] 03/19/2010 9:03 AM CDT 03/21/2010 9:03 AM CDT January Yanci PASTOR PATHOLOGY/CYTOLOGY Final R esult [facility] [place]NAL ZIP [address] [address] from Last 3 Months or Most Recently Relevant to Health Maintenance Insurance [facility] Care Teams Tow Driver Relationship Specialty Start Date End Date Pcp, No . PCP - General 11/27/16
--- OUTSIDE RECORDS SUMMARY | 2024-10-14 15:43 | XMS_ITS | Clinical Summary ---
Author Organization [facility] Address [address] [place] [address] Care Team Providers Care Principal Database Developer Name Role Phone Bambi Roberson APRN, C.N.P., D.N.P. Primary Ca re Provider Unavailable Source Comments Patient records contain information from all sites at [facility]. For routine questions regarding patient records, call [phone] during business hours, M-F 8:00 AM - 5:00 PM Central Time. 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 Pharyngitis Acute (Primary Dx) 09/22/2024 2:30 PM [employer]URSING Telemedicine [facility] at [address] [phone] Cathie Glass M.D. Pharyngitis Acute (Primary Dx) 08/26/2024 3:00 PM [employer] NURSING Nurse Only Department of Family Medicine, [facility], [address] [phone] Yesica Aceves M.D. Williams, Jessica J L.P.NAhmet Nurse Visit (RSV Vaccine ) Discharge Disposition: Home or Self Care 08/17/2024 5:00 PM [employer] NURSING Telemedicine [facility] at [address] [phone] Eva Bond M.D. Acute Recurrent Sinusitis Unspecified (Primary Dx) 08/17/2024 Nurse Triage Department of Family Medicine, [facility], in [address] [phone] Pippa Carrillo, R.NAhmet Sinusitis; Earache; Sore Throat 08/17/2024 Nurse Triage Department of Family Medicine, [facility], in [address] [phone] Hema Lovett RAhmetNAhmet Sinus Symptoms [...] drink = 0.6 oz pu re alcohol) [facility] Utilities Answer Date Recorded In the past 12 months has e [employer], gas, oil, or water [employer] threatened to shut off services in your [...] often do you attend chur ch or religion services? Never 11/06/2021 Do you belong to any clubs o r organizations such as episcopal groups, unions, fraternal or athletic groups, or [...] Answer Date Recorded PHQ-2 Score 2 04/16/2024 [facility] - Occupational Stress Questionnaire Answer [...] place to sleep or slept in a alf (including now)? No 11/06/2021 Nutrition Answer Date [...] Assigned at Female 12/02/2019 12:53 PM [employer] NURSING Legal Sex Female 11:06 AM CDT Gender Identity Female 12/02/2019 12:53 PM [employer] NURSING Sexual Orientation Not on file Last Filed Vital Signs Vital Sign Reading Time Taken Comments Blood Pressure 132/81 05/11/2024 3:29 PM CDT Pulse 81 05/11/2024 3:29 PM CDT Temperature 36.8 C (98.2 F) 05/11/2024 3:29 PM CDT Respiratory Rate 16 09/04/2023 3:18 PM [employer] NURSING Oxygen Saturation 99% 09/04/2023 3:18 PM [employer]UR[employer] Inhaled Oxygen Concentration - - Weight 65.8 [...] AB SCREEN, PLASMA Routine 09/22/2020 2:40 PM [employer] NURSING Screening Examination For Viral Disease from Last [...] M.D. LAB BLOOD ADD-ON Final Resu lt [facility] [address] [place] [address], [facility] CNFL [facility] in [address] [address] * Basic Metabolic Panel (06/28/2022 4:18 PM [...] C.N.P. LAB BLOOD ADD-O N Final Result [facility] [address] [place] [address], [facility] CNFL [facility] in [address] [address] * COLONOSCOPY (01/26/2021 11:29 AM CDT) Narrative Procedure Note Herrera Moses M.D. - 01/26/2021 11:29 AM CDT [facility] Patient Name: Pily Leal Procedure Date: [...] saturations were monitored continuously. The 45 [id number]-[id number] was introduced under direct vision through the anus and advanced tothe cecum, identified by appendiceal orifice and ileocecal valve. The colonoscopy was performed without difficulty. The patient tolerated the procedure well. The quality of the bowelpreparation was evaluated using the BBPS ([place] Bowel Preparation Scale) with scores of: Right [...] and Ab Screen, Plasma (09/22/2020 2:40 PM [employer] NURSING) HIV Ag/Ab Screen, P Negative Negative 09/25/2020 10:46 AM [employer]URSING ECLR Comment: Negative result does not rule out HIV infection. If exposure to HIV infection occurred <14 days ago, contact the laboratory to request addition of HIV-1 RNA detection / quantification test. HIV-1 p24 Ag Screen, P Negative Negative 09/25/2020 10:46 AM [employer] ECLR Comment: Negative result does not rule out HIV infection. If exposure to HIV infection occurred <14 days ago, contact the laboratory to request addition of HIV-1 RNA detection / quantification test. HIV-1 Ab Screen, P Negative Negative 2019 10:46 AM [employer] ECLR Comment: Negative result does not rule out HIV infection. If exposure to HIV infection occurred <14 days ago, contact the laboratory to request addition of HIV-1 RNA detection / quantification test. HIV-2 Ab Screen, P Negative Negative 2019 10:46 AM [employer] ECLR Comment: Negative result does not rule out HIV infection. If exposure to HIV infection occurred <14 days ago, contact the laboratory to request addition of HIV-1 RNA detection / quantification test. Blood (Blood, Venous) 09/22/2020 2:40 PM [employer]URSING 09/22/2020 9:14 PM [employer] us Yesica Aceves M.D. LAB MICROBIOLOGY - BLOOD OR DERABLES Final Result [facility] [address] [place] [address], [facility] ECLR [facility] [place] [address] from Last 3 Months or Most Recently Relevant to Health Maintenance Insurance [facility] Care Teams Principal Database Developer Relationship Specialty Start Date End Date Bambi Roberson APRN, C.N.P., D.N.P. PCP - General Family Medicine 05/13/24
--- OUTSIDE RECORDS SUMMARY | 2024-10-14 15:44 | XMS_ITS | Encounter Summary ---
Author Organization [facility] Address [address] [place] [address] Care Team Providers Care Principal Planner Name Role Phone Bambi Roberson APRN, C.N.P., D.N.P. Primary Ca re Provider Unavailable Reason for Visit * Reason Comments Sore Throat Encounter Details Date Type Department Care Team (Late st Contact Info) Description 09/22/2024 2:30 PM PARAFFIN PLANT SWEATER OPERATOR Telemedicine [facility] at [address] [phone] Cathie Glass M.D. [address] [place] [phone] Pharyngitis Acute (Primary Dx) Social History Tobacco Use Types Packs/Day Years Used Date Smoking Tobacco: Every Day Cigarettes Smokeless Tobacco: Never Alcohol Use Standard Drinks/Week Comments Yes 12 (1 standard drink = 0.6 oz pu re alcohol) [facility] Utilities Answer Date Recorded In the past 12 months has [facility] [employer] gas, oil, or water [employer] threatened to shut off services in your [...] How often do you attend chur or confucianist services? Never 11/06/2021 Do you belong to any clubs o r organizations such as confucianism groups, unions, fraternal or athletic groups, or [...] Answer Date Recorded PHQ-2 Score 2 04/16/2024 [facility] of Occupat ional Health - [...] place to sleep or slept in a skilled nursing (including now)? No 11/06/2021 Nutrition Answer Date [...] Sex Assigned at Female 12/02/2019 12:53 PM PARAFFIN PLANT SWEATER OPERATOR Legal Sex Female 11:06 AM CDT Gender Identity Female 12/02/2019 12:53 PM PARAFFIN PLANT SWEATER OPERATOR Sexual Orientation Not on file documented as [...] today) that need to be addressed? No FFIN PLANT SWEATER OPERATOR documented in this encounter Plan of Treatment Not on file documented as of this encounter Visit Diagnoses Diagnosis Pharyngitis Acute- Primary documented in this encounter Care Teams Principal Planner Relationship Specialty Start Date End Date Bambi Roberson APRN, C.N.P., D.N.P. PCP - General Family Medicine 05/13/24 documented as of this encounter
--- OUTSIDE RECORDS SUMMARY | 2024-10-14 15:44 | XMS_ITS | Referral Summary ---
Author Organization [facility] Address [address] [place] [address] Care Team Providers Care Supervisor Whipped Topping Name Role Phone aBmbi Roberson APRN C.N.P., D.N.P. Primary Ca re Provider Unavailable Source Comments Patient records contain information from all sites at [facility]. For routine questions regarding patient records, call [phone] during business hours, M-F 8:00 AM - 5:00 PM Central Time. Record requests for emergency care only can be directed to [phone] at any time.[facility] Encounters Date Type Department Care Team Description 09/23/2024 5:30 PM YARD ENGINEER Telemedicine [facility] at [address] [phone] Debo Lindo M.D. Pharyngitis Acute (Primary Dx) 09/22/2024 2:30 PM YARD ENGINEER Telemedicine [facility] at [address] [phone] Cathie Glass M.D. Pharyngitis Acute (Primary Dx) 08/26/2024 3:00 PM YARD ENGINEER Nurse Only Department of Family Medicine, [facility], in [address] [phone] Yesica Aceves M.D. Williams, Jessica J, L.P.N. Nurse Visit (RSV Vaccine ) Discharge Disposition: Home or Self Care 08/17/2024 5:00 PM YARD ENGINEER Telemedicine Primary Care on Demand at [facility] [address] [facility] [place] [phone] Eva Bond M.D. Acute Recurrent Sinusitis Unspecified (Primary Dx) 08/17/2024 Nurse Triage Department of Family [facility], [facility], in [address] [phone] Pippa Carrillo, R.N. Sinusitis; Earache; Sore Throat 08/17/2024 Nurse Triage Department of Family Medicine, [facility], in [address] [phone] Hema Lovett RAhmetNAhmet Sinus Symptoms from Last [...] (09/22/2020): Added automatically from request for surgery [id number] Hypothyroidism 09/23/2019 Smoking Tobacco Use Personal History 09/23/2019 Pain Wrist Right 08/17/2019 Overview (08/17/2019): Added automatically from request for surgery [id number] Asthma 03/19/2010 Anxiety 03/19/2010 Anemia 03/19/2010 Nicotine [...] drink = 0.6 oz pu re alcohol) [facility] Utilities Answer Date Recorded In the past 12 months has e [facility], [employer], or water [employer] threatened to shut off services in your [...] often do you attend chur ch or congregation services? Never 11/06/2021 Do you belong to any clubs o r organizations such as cheondoism groups, unions, fraternal or athletic groups, or [...] Answer Date Recorded PHQ-2 Score 2 04/16/2024 [facility] of Occupat ional Health - Occupational Stress [...] Sex Assigned at Female 12/02/2019 12:53 PM YARD ENGINEER Legal Sex Female 11:06 AM CDT Gender Identity Female 12/02/2019 12:53 PM YARD ENGINEER Sexual Orientation Not on file Last Filed Vital Signs Vital Sign Reading Time Taken Comments Blood Pressure 132/81 05/11/2024 3:29 PM CDT Pulse 81 05/11/2024 3:29 PM CDT Temperature 36.8 C (98.2 F) 05/11/2024 3:29 PM CDT Respiratory Rate 16 09/04/2023 3:18 PM YARD ENGINEER Oxygen Saturation 99% 09/04/2023 3:18 PM YARD ENGINEER Inhaled Oxygen Concentration - - Weight 65.8 [...] AB SCREEN, PLASMA Routine 09/22/2020 2:40 PM YARD ENGINEER Screening Examination For Viral Disease from Last 3 Months or Most Recently Relevant to Health Maintenance Results * (ABNORMAL) Lipid Panel (05/11/2024 4:28 PM CDT) Triglycerides 246(H) mg/dL 05/11/2024 4:[address] [facility] Comment: ----REFERENCE VALUE---- Normal: <150 mg/dL Borderline High: 150-199 mg/dL High: 200-499 mg/dL Very High: > or =500 mg/dL Cholesterol, Total 287(H) mg/dL 2023 4:[address] [facility] Comment: ----REFERENCE VALUE---- Desirable: < 200 mg/dL Borderline High: 200 - 239 mg/dL High: > or = 240 mg/dL Cholesterol, LDL, Calculated 158(H) mg/dL 05/11/2024 4:[address] [facility] Comment: ----REFERENCE VALUE---- Desirable: <100 mg/dL [...] M.D. LAB BLOOD ADD-ON Final Resu lt [facility] [address] [place] [address], [facility] [place] [address] * Basic Metabolic Panel (06/28/2022 4:18 PM [...] CAhmetNAhmetPAhmet LAB BLOOD ADD-O N Final Result [facility] [address] [place] [address], [facility] [place] [address] * COLONOSCOPY (01/26/2021 11:29 AM CDT) Narrative Procedure Note Herrera Moses M.D. - 01/26/2021 11:29 AM CDT [facility] Patient Name: Pily Leal Procedure Date: [...] saturations were monitored continuously. The 45 [id number]-[id number] was introduced under direct vision through the anus and advanced tothe cecum, identified by appendiceal orifice and ileocecal valve. The colonoscopy was performed without difficulty. The patient tolerated the procedure well. The quality of the bowelpreparation was evaluated using the BBPS ([place] Bowel Preparation Scale) with scores of: Right [...] and Ab Screen, Plasma (09/22/2020 2:40 PM YARD ENGINEER) HIV Ag/Ab Screen, P Negative Negative 09/25/2020 10:46 AM YARD ENGINEER ECLR Comment: Negative result does not rule out HIV infection. If exposure to HIV infection occurred <14 days ago, contact the laboratory to request addition of HIV-1 RNA detection / quantification test. HIV-1 p24 Ag Screen, P Negative Negative 09/25/2020 10:46 AM YARD ENGINEER ECLR Comment: Negative result does not rule out HIV infection. If exposure to HIV infection occurred <14 days ago, contact the laboratory to request addition of HIV-1 RNA detection / quantification test. HIV-1 Ab Screen, P Negative Negative 2019 10:46 AM YARD ENGINEER ECLR Comment: Negative result does not rule out HIV infection. If exposure to HIV infection occurred <14 days ago, contact the laboratory to request addition of HIV-1 RNA detection / quantification test. HIV-2 Ab Screen, P Negative Negative 2019 10:46 AM YARD ENGINEER ECLR Comment: Negative result does not rule out HIV infection. If exposure to HIV infection occurred <14 days ago, contact the laboratory to request addition of HIV-1 RNA detection / quantification test. Blood (Blood, Venous) 09/22/2020 2:40 PM YARD ENGINEER 09/22/2020 9:14 PM YARD ENGINEER us Yesica Aceves M.D. LAB MICROBIOLOGY - BLOOD OR DERABLES Final Result [facility] [address] [place] [address], [facility] E[facility] [place] [address] from Last 3 Months or Most Recently Relevant to Health Maintenance Insurance [facility] Care Teams Supervisor Whipped Topping Relationship Specialty Start Date End Date Bambi Roberson APRN, C.N.P., D.N.P. PCP - General Family Medicine 05/13/24
--- OUTSIDE RECORDS SUMMARY | 2024-10-14 15:44 | XMS_ITS ---
Author Organization [facility] Address [address] [place] [address] Care Team Providers Care Rn Referral Name Role Phone Unavailable Unavailable Unavailable Surgery Details Not on file Complications Check Surgery Details section. Procedure Estimated Blood Loss Check Surgery Details section. Procedure Findings Check Surgery Details section. Procedure Specimens Taken Check Surgery Details section.
--- OUTSIDE RECORDS SUMMARY | 2024-10-14 15:44 | XMS_ITS | Encounter Summary ---
Author Organization [facility] Address [address] [place] [address] Care Team Providers Care Director Of Vendor Management Name Role Phone Bambi Roberson APRN, C.N.P., D.N.P. Primary Ca re Provider Unavailable Reason for Visit * Reason Comments Sore Throat Encounter Details Date Type Department Care Team (Late st Contact Info) Description 09/23/2024 5:30 PM DIGITAL ACCOUNT DIRECTOR Telemedicine Primary Care on Demand at [facility] [address] [place] [address] Debo Lindo M.D. [address] [place] [address] Pharyngitis Acute (Primary Dx) Social History Tobacco Use Types Packs/Day Years Used Date Smoking Tobacco: Every Day Cigarettes Smokeless Tobacco: Never Alcohol Use Standard Drinks/Week Comments Yes 12 (1 standard drink = 0.6 oz pu re alcohol) [facility] Utilities Answer Date Recorded In the past 12 months has [facility] [employer] gas, oil, or water [employer] threatened to shut off services in your [...] often do you attend chur ch or methodist services? Never 11/06/2021 Do you belong to any clubs o r organizations such as worship groups, unions, fraternal or athletic groups, or [...] Answer Date Recorded PHQ-2 Score 2 04/16/2024 [facility] of Occupat ional Health - Occupational Stress [...] Sex Assigned at Female 12/02/2019 12:53 PM DIGITAL ACCOUNT DIRECTOR Legal Sex Female 11:06 AM CDT Gender Identity Female 12/02/2019 12:53 PM DIGITAL ACCOUNT DIRECTOR Sexual Orientation Not on file documented as [...] today) that need to be addressed? No TAL ACCOUNT DIRECTOR documented in this encounter Plan of Treatment Not on file documented as of this encounter Visit Diagnoses Diagnosis Pharyngitis Acute- Primary documented in this encounter Care Teams Director Of Vendor Management Relationship Specialty Start Date End Date Bambi Roberson APRN, C.N.P., D.N.P. PCP - General Family Medicine 05/13/24 documented as of this encounter
[2024-10-14 15:48] LABS: Slide Review Reflex No
[2024-10-14] MEDS: dexAMETHasone 10 MG/ML inj PO (16:18)
[2024-10-14 16:35] LABS: Mono Screen* Negative (Negative)
== END 2024-10-14 16:20 | disposition home or self-care (01) ==
PROVIDERS: Emergency Provider Emergency Medicine Emergency Medical Services; PCP Family Medicine
DX: J06.9 Acute upper respiratory infection, unspecified (principal)
CPT/HCPCS: 36415; 71046; 80048; 85025; 86308; 87651; 99283; 99284; J1100

== ENCOUNTER 2025-04-20 10:49 | Emergency (ER) | payer BC, SELFPAY ==
--- OUTSIDE RECORDS SUMMARY | 2025-04-07 10:43 | XMS_ITS | Encounter Summary ---
Author Name [facility] Organization [facility] [place] Address [address] [place] [address] Support Name Relationship Address Phone SPARKLE LEAL Next of Kin [address] [place] [address] Selected Encounter This section includes the information on record at [place] for the Encounter. Date/Time Encounter Type Encounter Description Reason Provider Source Apr 07, 2025 03:43 PM PH1 ASSMT&MGMT NQHP 5-10 TELEPHONE/ANCILLA RY ICD-10-CM Z65.9 Problem related to unspecified psychosocial circumstances JANN SARABIA [facility] Encounter Template Text not used by [place] Assessments - Encounter Diagnoses This section includes the primary and secondary diagnoses documented for the Encounter. Date/Time Primary/Secondary Diagnosis Diagnosis Name Provider Source Apr 07, 2025 03:43 PM PRIMARY Problem related to unspecified psychosocial circumstances JANN SARABIA [facility] Encounter Notes: All associated encounter notes This section contains the clinical notes associated to the Encounter. Date/Time Encounter Note(s) Provider Source Apr 07, 2025 03:43 PM CAREGIVER CERTIFIC ATE: LOCAL TITLE: CSP DISCHARGE OR REVOCATION NOTE STANDARD TITLE: CAREGIVER CERTIFICATE DATE OF NOTE: APR 07, 2025@15:43 ENTRY DATE: APR 07, 2025@15:43:57 AUTHOR: MICHAEL SARABIA EXP COSIGNER: URGENCY: STATUS: COMPLETED Caregiver Support Program Discharge/Revocation Note The individual being discharged or revoked from the Program of Comprehensive Assistance for Family Caregivers is the Primary Family Caregiver: OSVALDO LEAL Name of Eugene: Sparkle Miguelapp Reason for discharge: Discharge/Revocation Date: 04/06/25 Staff provided/attempted verbal notification of discharge or revocation on: 04/07/25 Notification letter was mailed on: 04/08/25 CSP staff provided the following documents: - [facility] [place] Contact Information - [place] Caregiver Support Program [facility] Appeal FAQs - [place] Form 10-305 Your Rights to Seek Further Review of [facility] Decisions CSP staff provided information on the following resources and supports: - [place] [facility] spoke with the Caregiver about the loss of the Eugene and offered support. Length of call: 5 minutes /david/ DEYSI BUCKNER Caregiver Beer Brewer Signed: 04/07/2025 15:45 MICHAEL SARABIA [facility]
--- OUTSIDE RECORDS SUMMARY | 2025-04-07 10:43 | XMS_ITS | Continuity of Care Document ---
Author Name [facility] Organization [facility] Care Team Providers Care Head Of Loss Prevention Name Role Phone [facility] Unavailable Unavailable Problems Combined list of problems from Department of Defense and [facility] facilities. It does not include entries that were removed or entered in error. Problem Status Onset Date Problem Type Date of Resolution Comments Source Diagnosis: ICD-10-CM Z65.9 Problem related to unspecified psychosocial circumstances Active Diagnosis [facility] Diagnosis: ICD-10-CM Z65.8 Oth problems related to psychosocial circumstances Active Diagnosis [facility] Encounters Combined list of: 1) Encounters from Department of [facility] facilities going backup to the last 18 months, not all [place] inpatient encounters are included; 2) Encounters from the Department of [facility] facilities going backup to 280 months. Location Location Details Encounter Type Encounter Number Reason For Visit Attending Provider ADM Date DC Date Status Disposition Source [facility] Outpatient Encounter [id number] 12/10 [facility] ASSMT/REAS SESSMENT [id number] Diagnos is: ICD-10- CM Z65.8 Oth problem s related to psychos ocial circums tances GODBEY,GEE ELI 04/22 [facility] Outpatient Encounter [id number] Diagnos is: ICD-10- CM Z65.8 Oth problem s related to psychos ocial circums tances GODBEY,GEE ELI 05/05 [facility] Outpatient Encounter [id number] Diagnos is: ICD-10- CM Z65.8 Oth problem s related to psychos ocial circums tances GODBEY,GEE ELI 07/29 [facility] ASSMT/REAS SESSMENT [id number] Diagnos is: ICD-10- CM Z65.8 Oth problem s related to psychos ocial circums GERARD Jackson ELI 08/03 [facility] Outpatient Encounter [id number] 11/04 [facility] BY NON-[place] [id number] Diagnos is: ICD-10- CM Z65.8 Oth problem s related to psychos ocial circums GERARD Jackson ELI 11/24 [facility] PH1 ASSMT&MGMT NQHP 5-10 [id number] Diagnos is: ICD-10- CM Z65.9 Problem related to unspeci fied psychos ocial circums Cherrie Martin 04/07 [facility]
--- OUTSIDE RECORDS SUMMARY | 2025-04-07 10:43 | XMS_ITS | Continuity of Care Document ---
Author Name [facility] Organization [facility] Care Team Providers Care Automatic Equipment Technician Name Role Phone [facility] Unavailable Unavailable Problems Combined list of problems from Department of Defense and [facility] facilities. It does not include entries that were removed or entered in error. Problem Status Onset Date Problem Type Date of Resolution Comments Source Diagnosis: ICD-10-CM Z65.9 Problem related to unspecified psychosocial circumstances Active Diagnosis [facility] Diagnosis: ICD-10-CM Z65.8 Oth problems related to psychosocial circumstances Active Diagnosis [facility] Encounters Combined list of: 1) Encounters from [facility] of [facility] facilities going backup to the last 18 months, not all [place] inpatient encounters are included; 2) Encounters from the Department of [facility] facilities going backup to 280 months. Location Location Details Encounter Type Encounter Number Reason For Visit Attending Provider ADM Date DC Date Status Disposition Source [facility] Outpatient Encounter [id number] 12/10 [facility] ASSMT/REAS SESSMENT [id number] Diagnos is: ICD-10- CM Z65.8 Oth problem s related to psychos ocial circums tances GODBEY,GEE ELI 04/22 [facility] IS [facility] Outpatient Encounter [id number] Diagnos is: ICD-10- CM Z65.8 Oth problem s related to psychos ocial circums tances GODBEY,GEE ELI 05/05 [facility] IS [facility] Outpatient Encounter [id number] Diagnos is: ICD-10- CM Z65.8 Oth problem s related to psychos ocial circums tances GODBEY,GEE ELI 07/29 [facility] IS [facility] ASSMT/REAS SESSMENT [id number] Diagnos is: ICD-10- CM Z65.8 Oth problem s related to psychos ocial circums GERARD Jackson ELI 08/03 [facility] IS [facility] Outpatient Encounter [id number] 11/04 [facility] IS [facility] HEALTH ASSESS BY NON-[place] [id number] Diagnos is: ICD-10- CM Z65.8 Oth problem s related to psychos ocial circums GERARD Jackson ELI 11/24 [facility] IS [facility] PH1 ASSMT&MGMT NQHP 5-10 [id number] Diagnos is: ICD-10- CM Z65.9 Problem related to unspeci fied psychos ocial circums Cherrie Martin 04/07 [facility]
[2025-04-20] VITALS (8 sets, daily range): BP systolic 136–161; BP diastolic 95–99; PULSE 49–70; RESP 12–42; TEMP 36.4; O2SAT 96–99; BMI 22.6
--- OUTSIDE RECORDS SUMMARY | 2025-04-20 10:51 | XMS_ITS | Clinical Summary ---
Author Organization [employer] [facility] [facility] Address [address] [place] [address] Care Team Providers Care Carpentry Teacher Name Role Phone Pcp, No Primary Care [...] disorder 01/21/2007 Genital herpes, unspecified 12/20/2005 Immunizations Immunization Administration Dates Next Due Influenza, IIV3 (Age [...] Comments Blood Pressure 137/90 11/02/2013 2:20 PM AOC DIRECTOR COMBAT OPERATIONS OFFICER Pulse 77 11/02/2013 2:20 PM AOC DIRECTOR COMBAT OPERATIONS OFFICER Temperature 36.6 C (97.8 F) 10/25/2009 4:10 PM AOC DIRECTOR COMBAT OPERATIONS OFFICER Respiratory Rate 18 11/27/2006 3:30 PM AOC DIRECTOR COMBAT OPERATIONS OFFICER Oxygen Saturation 99% 10/25/2009 4:10 PM AOC DIRECTOR COMBAT OPERATIONS OFFICER Inhaled Oxygen Concentration - - Weight 59.9 kg (132 lb) 10/25/2009 4:10 PM AOC DIRECTOR COMBAT OPERATIONS OFFICER Height - - Body Mass Index - - Plan of Treatment Health Maintenance Due Date Last Done Comments Depression screening for age 12+ 1982 HIV for age 15-65 1985 BMI (ht and wt on same day) for age 18+ 1988 Hepatitis C screening for age 18-79 1988 Hepatitis B series for 19+ ( 1 of 3 - 19+ 3-dose series) 1989 Pap test for age 21-65 03/19/2013 03/19/2010, 2005 Colonoscopy through age 75 2015 Lipids for age 45-75 2015 Mammogram for age 45-75 2015 Tetanus booster 03/02/2017 03/02/2007 Pneumococcal series for age 50+ (1 of 1 - PCV) 2020 Zoster (shingles) series for age 50+ (1 of 2) 2020 COVID-19 vaccine series (1 - 2023- season) 2024 Influenza Vaccine (#1) 2025 09/20/2003 Procedures Procedure Name Priority Date/Time Associated Diagnosis Comments GYNECOLOGICAL PANEL Timed 03/19/2010 9 :03 AM CDT from Last 3 Months or Most Recently Relevant to Health Maintenance Results * GYNECOLOGICAL PANEL (03/19/2010 9:03 AM CDT) CYTOLOGY CYTOPATHOLOGY REPORT [facility] Status: Final Status [id number] CLINICAL INFORMATION Last Date of LMP :03/07/10 Last Pap Date :2005 Last Pap Result :? [place]/Bx done today :No HPV Request :HPV if [...] 9:03 AM CDT 03/21/2010 9:03 AM CDT january Yanci PASTOR PATHOLOGY/CYTOLOGY Final R esult [facility] [place]IP [address] [address] from Last 3 Months or Most Recently Relevant to Health Maintenance Insurance [facility] Care Teams Carpentry Teacher Relationship Specialty Start Date End Date Pcp, No . PCP - General 11/27/16
--- OUTSIDE RECORDS SUMMARY | 2025-04-20 10:51 | XMS_ITS | Encounter Summary ---
Author Organization [facility] Address [address] [place] [address] Care Team Providers Care Take Away Man Name Role Phone Bambi Roberson APRN, C.N.P., D.N.P. Primary Ca re Provider Unavailable Reason for Visit * Reason Onset Date Comments Abdominal Pain 04/19/2025 Encounter Details Date Type Department Care Team (Late st Contact Info) Description 04/19/2025 Nurse Triage Department of Family Medicine, [facility], in [address] [phone] Alyssa Amin, M.S.N., R.N. Abdominal Pain Social History Tobacco Use Types Packs/Day Years Used Date Smoking Tobacco: Every Day Cigarettes Smokeless Tobacco: Never Alcohol Use Standard Drinks/Week Comments Yes 12 (1 standard drink = 0.6 oz pu re alcohol) [facility] Utilities Answer Date Recorded In the past 12 months has [facility] [employer], [employer], oil, or water [email or web address] threatened to shut off services in your [...] by your partner or ex-partner? No 11/06/2021 Hunger Vital Sign Answer Date Recorded Within [...] place to sleep or slept in a snf (including now)? No 11/06/2021 Education Answer Date Recorded What is the highest level of school you have completed or the highest degree you have received? 12th grade 03/22/2020 Comments No Sex and Gender Information Value Date Recorded Sex Assigned at Female 12/02/2019 12:53 PM SKI MAKER WOOD Legal Sex Female 11:06 AM CDT Gender Identity Female 12/02/2019 12:53 PM SKI MAKER WOOD Sexual Orientation Not on file documented as of this encounter Miscellaneous Notes * Telephone Encounter - Alyssa Amin M.S.N., R.N. - 04/19/2025 12:05 PM CDT Chief Complaint / Reason for Call Patient is a 55 y.o. female calling regarding Abdominal Pain. Assessment Concern: about 2 months ago she called in and got a RX for kidney stones, from customer response representative provider. 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 He about 2 weeks ago. She thinks she has kidney stones again She started taking the Flomax again. Back pain , side pain. On the left side. No pain on right side. Pain below her ribs. Radiates when she sits up, to her foot. No dysuria. She walks around and sometimes she wets herself. Bloating has gone down. Present for: Home cares tried: Flomax for about a week. Tylenol and Ibuprofen. Calling to request: Appointment The recommended disposition is See a health care provider within 24 hours. Next available appt with Dr. Aceves until September. Patient was warm transferred to [facility], Patient Appointment Otolaryngology Rep at the clinic for further assistance. Patient would like to wait until Friday, 04/22. Advised to go to ED if pain worsens (or she can callback to see if there is an earlier appt). Care Advice Patient/Caregiver understands and will follow care advice?: Yes, able to teach back Abdominal Pain - Ujrnxb-Jtkxd-RX Nurse Alyssa Hooper Apr 19, 2025 12:23 PM Care Advice SEE PCP WITHIN 24 HOURS: STOMACH CRAMPS: * Your stomach cramps may be due to an intestinal virus or from something that you ate. * When you have cramps, drink some water, then lie down and try to find a comfortable position. DIET: * Drink adequate fluids. Eat a bland diet. * Avoid alcohol or caffeinated beverages * Avoid greasy or fatty foods. CALL BACK IF: * Severe pain lasts over 1 hour * Constant pain lasts over 2 hours * You become worse CARE ADVICE given per Abdominal Pain - Female (Adult) guideline. Reason for Disposition [1] MODERATE pain (e.g., interferes with normal activities) AND [2] pain comes and goes (cramps) AND [3] present > 24 hours (Exception: Pain with Vomiting or Diarrhea - see that Guideline.) Protocols used: Abdominal Pain - Favzvn-Hvutk-NP documented in this encounter Plan of Treatment Not on file documented as of this encounter Visit Diagnoses Not on filedocumented in this encounter Care Teams Take Away Man Relationship Specialty Start Date End Date Bambi Roberson APRN, C.N.P., D.N.P. PCP - General Family Medicine 05/13/24 documented as of this encounter
--- OUTSIDE RECORDS SUMMARY | 2025-04-20 10:51 | XMS_ITS | Clinical Summary ---
Author Organization [facility] Address [address] [place] [address] Care Team Providers Care Enterprise Infrastructure Architect Name Role Phone Bambi Roberson APRN, C.N.P., D.N.P. Primary Ca re Provider Unavailable Source Comments Patient records contain information from all sites at [facility]. For routine questions regarding patient records, call [phone] during business hours, M-F 8:00 AM - 5:00 PM Central Time. Record requests for emergency care only can be directed to [phone] at any time.[facility] Allergies No known active allergies Medications * This document contains information received from the source organization and may not represent a complete record from that organization. aspirin 81 mg capsule Take 81 mg by mouth. 3 Active albuterol 90 mcg/actuation inhalerIndicatio ns:Pneumonia Inhale 2 puffs every 6 (six) hours as needed for shortness of breath. 6.7 g 4 Active budesonide (Pulmicort) 180 mcg/actuation inhaler Inhale 1 puff 2 (two) times a day. Rinse mouth with water after use to reduce aftertaste and incidence of candidiasis. Do not swallow. 1 each 5 4 Active sod bicarb-sod chlor-neti pot packet with rinse deviceIndication s:Acute Recurrent Sinusitis Unspecified Use Netipot/saline rinse 1-2 times a day to clean sinuses. Use water that is either sterile, distilled, or previously boiled for preparations; do not use tap water. 4 Active fluticasone propionate (Flonase) 50 mcg/actuation nasal sprayIndications :Acute Recurrent Sinusitis Unspecified 2 spray in each [...] 90 tablet 3 4 09/16/20 25 Active amoxicillin-pot clavulanate (Augmentin) 875-125 mg per tabletIndication s:Acute Recurrent Maxillary Sinusitis Take 1 tablet by mouth 2 (two) times a day. 20 tablet 5 Active ciprofloxacin (Cipro) 500 mg tabletIndication s:Frequency Urinary,Pain Left Lower Quadrant,Urgency Urinary Take 1 tablet (500 mg total) by mouth 2 (two) times a day. 14 tablet 5 Active tamsulosin (Flomax) 0.4 mg 24 hr capsule Take 1 capsule (0.4 mg total) by mouth daily. Until stone passage, no longer than 4 weeks. 30 capsule 5 Active Active Problems Problem Noted Date Diagnosed [...] (09/22/2020): Added automatically from request for surgery [id number] Hypothyroidism 09/23/2019 Smoking Tobacco Use Personal History 09/23/2019 Pain Wrist Right 08/17/2019 Overview (08/17/2019): Added automatically from request for surgery [id number] Asthma 03/19/2010 Anxiety 03/19/2010 Anemia 03/19/2010 Nicotine Dependence Unspecified 01/21/2007 Pain Thumb Right Resolved Problems Problem Noted Date Diagnosed Date Resolved Date Thyrotoxicosis Unspecified W ithout Thyrotoxic Crisis Or Storm 06/20/2009 09/23/2019 Herpes Genitalis 12/20/2005 09/22/2020 Follow Up Examination Postoperative Visit 10/01/2020 Encounters Date Type Department Care Team Description 04/19/2025 Nurse Triage Department of Family Medicine, [facility], in [address] [phone] Alyssa Amin M.S.N., R.N. Abdominal Pain 02/17/2025 2:30 PM CDT [facility] at [address] [phone] Octavia Eddy D.O. Frequency Urinary (Primary Dx); Pain Left Lower Quadrant; Urgency Urinary 01/25/2025 10:00 AM CDT [facility] at [address] [phone] Catalina Reyes M.D. Acute Recurrent Maxillary Sinusitis (Primary Dx) from Last 3 Months Immunizations Immunization Administration Dates Next Due Influenza TIV (IM) [...] drink = 0.6 oz pu re alcohol) [facility] [employer] Answer Date Recorded In the past 12 months has e [employer], [employer] ([employer]), oil, or water [employer] threatened to shut off services in your [...] place to sleep or slept in a retirement (including now)? No 11/06/2021 Education Answer Date Recorded What is the highest level of school you have completed or the highest degree you have received? 12th grade 03/22/2020 Comments No Sex and Gender Information Value Date Recorded Sex Assigned at Female 12/02/2019 12:53 PM LEATHER CARTRIDGE BELT MAKER Legal Sex Female 11:06 AM CDT Gender Identity Female 12/02/2019 12:53 PM LEATHER CARTRIDGE BELT MAKER Sexual Orientation Not on file Last Filed Vital Signs Vital Sign Reading Time Taken Comments Blood Pressure 132/81 05/11/2024 3:29 PM CDT Pulse 81 05/11/2024 3:29 PM CDT Temperature 36.8 C (98.2 F) 05/11/2024 3:29 PM CDT Respiratory Rate 16 09/04/2023 3:18 PM LEATHER CARTRIDGE BELT MAKER Oxygen Saturation 99% 09/04/2023 3:18 PM LEATHER CARTRIDGE BELT MAKER Inhaled Oxygen Concentration - - Weight 65.8 [...] Cessation counseling 09/22/2021 09/22/2020 COVID-19 Vaccine ( season) 2024 Depression Screening (Annual PHQ-2) 10/13/2024 Lipid (Cholesterol) Screening 05/11/2025 05/11/2024, 09/22/2020 Fasting Glucose for Diabetes Screening 06/28/2025 06/28/2022, 09/22/2020, 09/16/2019 Influenza Vaccine (#1) 2025 4, 07/17/2023, 07/17/2023, Additional history exists Colonoscopy 01/26/2026 01/26/2021 Colorectal Cancer Surveillance 01/26/2026 DTaP,Tdap,and Td Vaccines (5 - Td or Tdap) 07/07/2027 07/07/2017, 07/07/2017, 07/07/2017, Additional history exists HIV Screening Completed 09/22/2020 Pneumococcal vaccine (50+ years) Completed 08/28/2023, 09/22/2020 IPV Vaccines Aged Out No longer eligi ble based on patient's age to complete this topic Procedures Procedure Name Priority Date/Time Associated Diagnosis Comments LIPID PANEL, S Routine 05/11/2024 4:28 PM CDT Hyperlipidemia BASIC METABOLIC PANEL, S/P STAT 06/28/2022 4:18 PM CDT COLONOSCOPY 01/26/2021 11:29 AM CDT HIV-1/-2 AG AND AB SCREEN, PLASMA Routine 09/22/2020 2:40 PM LEATHER CARTRIDGE BELT MAKER Screening Examination For Viral Disease from Last 3 Months or Most Recently Relevant to Health Maintenance Results * (ABNORMAL) Lipid Panel (05/11/2024 4:28 PM CDT) Pathologist [facility] Triglycerides 246(H) mg/dL 05/11/2024 4:55 PM CDT [...] M.D. LAB BLOOD ADD-ON Final Resu lt Performing Organization Address [facility]/State/ZIP Co de Phone Number [facility] [address] [place] [address], [facility] in [address] [address] * Basic Metabolic Panel (06/28/2022 4:18 PM [...] 4:18 PM CDT 06/28/2022 4:21 PM CDT Kanika Mandel APRNNAhmetPAhmet LAB BLOOD ADD-O N Final Result [facility] [address] [place] [address], [facility] [employer] [place] [address] * COLONOSCOPY (01/26/2021 11:29 AM CDT) Narrative Procedure Note Herrera Moses M.D. - 01/26/2021 11:29 AM CDT [facility] GI Patient Name: Pily Leal Procedure Date: [...] saturations were monitored continuously. The 45 [id number] was introduced under direct vision through the anus and advanced tothe cecum, identified by appendiceal orifice and ileocecal valve. The colonoscopy was performed without difficulty. The patient tolerated the procedure well. The quality of the bowelpreparation was evaluated using the BBPS ([place] Bowel Preparation Scale) with scores of: Right [...] and Ab Screen, Plasma (09/22/2020 2:40 PM LEATHER CARTRIDGE BELT MAKER) HIV Ag/Ab Screen, P Negative Negative 09/25/2020 10:46 AM LEATHER CARTRIDGE BELT MAKER ECLR Comment: Negative result does not rule out HIV infection. If exposure to HIV infection occurred <14 days ago, contact the laboratory to request addition of HIV-1 RNA detection / quantification test. HIV-1 p24 Ag Screen, P Negative Negative 09/25/2020 10:46 AM LEATHER CARTRIDGE BELT MAKER ECLR Comment: Negative result does not rule out HIV infection. If exposure to HIV infection occurred <14 days ago, contact the laboratory to request addition of HIV-1 RNA detection / quantification test. HIV-1 Ab Screen, P Negative Negative 2019 10:46 AM LEATHER CARTRIDGE BELT MAKER ECLR Comment: Negative result does not rule out HIV infection. If exposure to HIV infection occurred <14 days ago, contact the laboratory to request addition of HIV-1 RNA detection / quantification test. HIV-2 Ab Screen, P Negative Negative 2019 10:46 AM LEATHER CARTRIDGE BELT MAKER ECLR Comment: Negative result does not rule out HIV infection. If exposure to HIV infection occurred <14 days ago, contact the laboratory to request addition of HIV-1 RNA detection / quantification test. Blood (Blood, Venous) 09/22/2020 2:40 PM LEATHER CARTRIDGE BELT MAKER 09/22/2020 9:14 PM LEATHER CARTRIDGE BELT MAKER us Yesica Aceves M.D. LAB MICROBIOLOGY - BLOOD OR DERABLES Final Result [facility] [address] [place] [address], [place] [employer] in [address] [address] from Last 3 Months or Most Recently Relevant to Health Maintenance Insurance [facility] Care Teams Enterprise Infrastructure Architect Relationship Specialty Start Date End Date Bambi Roberson APRN, C.N.P., D.N.P. PCP - General Family Medicine 05/13/24
--- NOTE | 2025-04-20 11:54 | CRLHL7_ITS ---
For Patients: As a result of the Century Cures Act, medical imaging exams and procedure reports are released immediately into your electronic medical record. You may view this report before your referring provider. If you have questions, please contact your health care provider. INDICATION: One-week of flank pain. History of kidney stones. COMPARISON: 07/17/2017 CT of the abdomen and pelvis TECHNIQUE: CT of the abdomen and pelvis without intravenous contrast. FINDINGS: Please note that absence of intravenous contrast limits evaluation of soft tissue and vascular structures. Lung bases: No pleural effusion. Liver: Smooth hepatic contour. Small cyst in the left hepatic lobe. Gallbladder and biliary tree: Unremarkable noncontrast CT appearance. Spleen: No splenomegaly. Pancreas: Unremarkable noncontrast CT appearance. Adrenal glands: Normal. Kidneys and ureters: No hydroureteronephrosis. No calculus. Bladder: Unremarkable noncontrast CT appearance. Visualized reproductive organs: Status post hysterectomy. Gastrointestinal tract: There is colonic diverticulosis. [id number] colonic stool volume. No focal abnormally dilated loops of bowel. Normal appendix. Peritoneal cavity: No free fluid or free air. Lymph nodes: No enlarged abdominal or pelvic lymph nodes by CT size criteria. Vessels: No abdominal aortic aneurysm. Severe aortic calcification. Abdominal and pelvic wall: There is scarring in the ventral abdominal wall. Bones: There are osseous degenerative changes. IMPRESSION: 1. No acute noncontrast CT findings in the abdomen or pelvis. Specifically, no urinary tract calculus. 2. Colonic diverticulosis. Please note that all CT scans at this facility use dose modulation, iterative reconstruction, and/or weight-based dosing when appropriate to reduce radiation dose to as low as reasonably achievable. Dictated by Dawson Bhatia MD @ 04/20/2025 1:02:08 PM (Electronically Signed)
--- NOTE | 2025-04-20 11:57 | ED_ITS ---
HPI - General Adult General Chief complaint: Abdominal Pain Stated complaint: Kidney stone Time Seen by Provider: 04/20/25 10:51 History of Present Illness HPI narrative: Patient is a pleasant 55-year-old female who unfortunately lost her son to [facility] within the last 2 weeks. She has had some intermittent abdominal pain. She describes it is occasionally in her flank, she was diagnosed by a a video visit with kidney stone about couple months ago. That seemed to get better with Cipro and tamsulosin. The patient now continues to have let some left-sided flank pain, but also some diffuse abdominal pain. But it seems more confined to the left. She has had no vaginal bleeding vaginal discharge no fevers chills no nausea vomiting. She reports the pain is been pretty constant over the last few hours. She has had a history of diarrhea, chest pain, anxiety, anemia. Her c cowan was reviewed. Patient is afebrile on presentation. Related Data Previous Rx's ?Medication ?Instructions ?Recorded estradiol 1 mg tablet 1 mg PO QDAY #90 tabs valacyclovir 1 gram tablet 1,000 mg PO QDAY #30 tabs 0 06/23/24 methylprednisolone 4 mg tablets in See Rx Instructions PO .COMPLEX 10/14/24 a dose pack (Medrol (Chuck)) #21 ea Allergies Allergy/AdvReac Type Severity Reaction Status Date / Time No Known Drug Allergies Allergy Verified 04/20/25 11:18 Review of Systems Status of ROS: Reports: 6 or more systems reviewed and unremarkable except as noted in History and below [facility] Medical History Persistent cough ?R05.3 - Chronic cough (ICD-10) Polyp of colon ?K63.5 - Polyp of colon (ICD-10) Chest pain ?R07.9 - Chest pain, unspecified (ICD-10) Primary osteoarthritis, right wrist ?M19.031 - Primary osteoarthritis, right wrist (ICD-10) Encounter for pre-operative examination ?Z01.818 - Encounter for other preprocedural examination (ICD-10) Surgical History History of hand surgery ?Z98.890 - Other specified postprocedural states (ICD-10) History of surgery on lower extremity (12/31/18) ?Z98.890 - Other specified postprocedural states (ICD-10) H/O arthroscopy of left knee ?Z98.890 - Other specified postprocedural states (ICD-10) S/P excisional debridement (01/06/06) ?Z98.890 - Other specified postprocedural states (ICD-10) History of total hysterectomy with bilateral salpingo-oophorectomy (BSO) (08/06/16) ?Z90.710 - Acquired absence of both cervix and uterus (ICD-10) ?Z90.722 - Acquired absence of ovaries, 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) ?Z90.79 - Acquired absence of other genital organ(s) (ICD-10) Status post wrist surgery (2018) ?Z98.890 - Other specified postprocedural states (ICD-10) Status post arthroscopy of right knee ?Z98.890 - Other specified postprocedural states (ICD-10) Status post abdominoplasty (03/19/10) ?Z98.890 - Other specified postprocedural states (ICD-10) History of dilation and curettage (01/12/13) ?Z98.890 - Other specified postprocedural states (ICD-10) Family History Maternal Grandmother Stroke Diabetes Heart disease Mother Mental disor NEC oth dis Sister Mental disor NEC oth dis Social History Narrative: Smoker 15 cigarettes per day for approx 20 years [employer]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 Smoking Status: Current every day smoker What tobacco products do you use: cigarettes Smoking packs per day: 0.5 Smoking cigarettes per day: 10.0 Do you use any of these nicotine containing products: None Second hand tobacco smoke exposure: No How often do you have a drink containing alcohol: 2-3 times a week How many standard drinks containing alcohol do you have on a typical day: 1 or 2 How often do you have six or more drinks on one occasion: Never AUDIT-C Alcohol total score: 3 Non-prescribed substance use: denies use service: No Exam Narrative: Exam Narrative: Objective: Patient's vital signs show elevated blood pressure but afebrile Alert orient x3 Pulse regular Abdomen soft mild tenderness in her left lateral abdomen but not significant. No signs marked CVA pain Extremities are no edema neurologic nonfocal. Const: Vital Signs, click to edit/add: Vital Signs - 24 hr 04/20/25 11:18 04/20/25 13:02 04/20/25 13:03 Temperature 97.6 F Pulse Rate 54 L 56 L Pulse Rate [Pulse Oximeter] 70 Respiratory Rate 16 19 25 H Blood Pressure 155/99 H Blood Pressure [Ri ght Upper Arm] 161/95 H Pulse Oximetry 98 98 98 Oxygen Delivery Me thod Room Air 04/20/25 13:15 04/20/25 13:30 04/20/25 13:33 Temperature Pulse Rate 51 L 51 L 51 L Pulse Rate [Pulse Oximeter] Respiratory Rate 18 18 12 Blood Pressure 136/96 H Blood Pressure [Ri ght Upper Arm] Pulse Oximetry 96 98 99 Oxygen Delivery Me thod 04/20/25 13:45 04/20/25 14:00 Temperature Pulse Rate 49 L 49 L Pulse Rate [Pulse Oximeter] Respiratory Rate 42 H Blood Pressure Blood Pressure [Ri ght Upper Arm] Pulse Oximetry 98 97 Oxygen Delivery Me thod Course Vital Signs Vital signs: Initial Vital Signs Temperature 97.6 F 04/20/25 11:18 Temperature Source Temporal Artery Scan 04/20/25 11:18 Pulse Rate 70 04/20/25 11:18 Respiratory Rate 16 04/20/25 11:18 Blood Pressure 161/95 H 04/20/25 11:18 Blood Pressure Mean 117 H 04/20/25 11:18 Blood Pressure Position Sitting 04/20/25 11:18 Pulse Oximetry 98 04/20/25 11:18 Oxygen Delivery Method Room Air 04/20/25 11:18 Vital Signs Temperature 97.6 F 04/20/25 11:18 Pulse Rate 70 04/20/25 11:18 Respiratory Rate 16 04/20/25 11:18 Blood Pressure 161/95 H 04/20/25 11:18 Pulse Oximetry 98 04/20/25 11:18 Oxygen Delivery Method Room Air 04/20/25 11:18 Temperature 97.6 F 04/20/25 11:18 Pulse Rate 49 L 04/20/25 14:00 Respiratory Rate 42 H 04/20/25 13:45 Blood Pressure 136/96 H 04/20/25 13:33 Pulse Oximetry 97 04/20/25 14:00 Oxygen Delivery Method Room Air 04/20/25 11:18 Medications Administered Medications: Discontinued Medications Generic Name Dose Route Start Last Admin Trade Name Maria M PRN Reason Stop Dose Admin Sodium Chloride 1,000 mls @ 6,000 mls/hr 04/20/25 12:00 04/20/25 13:20 0.9 % Sodium Chloride 1000 Ml IV 04/20/25 12:09 Infused .Q10M [facility] Infusion Morphine Sulfate 2 mg 04/20/25 11:52 04/20/25 12:57 Morphine 4 Mg/Ml Inj IVP 04/20/25 11:53 Not Given ONCE ONE Medical Decision Making MDM Narrative Medical decision making narrative: [age] year white female with significant psychosocial stress with her 9 2 weeks ago with couple month history of abdominal pain intermittent, diagnosed with kidney stone in the past by a video visit. At this point presents with abdominal pain left-sided lateral, some flank pain and low back discomfort. Rule out UTI, rule out pyelonephritis, rule out kidney stone, rule out intra-abdominal infection. Patient will get CT without contrast of her abdomen pelvis because of potential for stone, will get a urinalysis urine culture, labs, IV fluid, 2 mg of morphine given IV. Disposition pending findings above with the studies. Addendum 2:00 p.m. the patient declined morphine. She feels like her abdomen is distended at times. Appeared CT of of the abdomen is read as negative. Her lab studies look reassuring. Urinalysis looks negative. She has been on Flomax I will have her stop that, would recommend that she try some FiberCon and Metamucil. Get good hydration with water. She reports she does not drink alcohol regularly but her MCV is a little elevated. Would recommend she recheck with regular doctor in the next 3-5 days. Return as needed. Lab Data Labs: Lab Results 04/20/25 04/20/25 Range/Units 12:05 Unknown WBC 7.70 (4.50-11.00) K/uL RBC 3.72 L (4.00-5.20) m/uL Hgb 13.1 (12.0-16.0) gm/dL Hct 38.6 (33.0-51.0) % MCV 104 H (80-100) fL MCH 35 H (26-34) pg MCHC 34 (32-36) gm/dL RDW Coeff of Joselito 11.7 (11.5-15.5) % Plt Count 346 (140-440) K/uL Neut % (Auto) 58.5 (42.0-72.0) % Lymph % (Auto) 30.0 (20-44) % [place] % (Auto) 8.2 (0.0-11.0) % Eos % (Auto) 2.2 (0.0-7.0) % Baso % (Auto) 0.3 (0.0-3.0) % Neut # (Auto) 4.51 (1.7-7.0) K/uL Lymph # (Auto) 2.31 (0.90-2.90) K/uL [place] # (Auto) 0.60 (0.00-0.90) K/UL Eos # (Auto) 0.17 (0.00-0.50) K/uL Baso # (Auto) 0.02 (0.00-0.30) K/uL Abs Immat Gran (auto) 0.06 (0.00-0.30) K/uL Imm/Tot Granulo (auto) 0.8 % Sodium 132 L (135-149) mmol/L Potassium 4.0 (3.6-5.1) mmol/L Chloride 103 (96-114) mmol/L Carbon Dioxide 23 (20-32) mmol/L Anion Gap 6 L (7-15) mEq/L BUN 15 (7-30) mg/dL Creatinine 0.6 (0.5-1.5) mg/dL Estimated Creat Clear 99.18 Estimated GFR 106 ml/min Glucose 101 (60-115) mg/dL Lactate 1.4 (0.5-1.9) mmol/L Calcium 9.4 (8.4-10.6) mg/dL Total Bilirubin 0.2 (0.1-1.5) mg/dL Direct Bilirubin 0.1 (0.0-0.5) mg/dL AST 24 (12-35) U/L ALT 23 (4-35) U/L Alkaline Phosphatase 46 (40-150) U/L C-Reactive Protein < 0.5 L (0.5-1.0) mg/dL Total Protein 6.3 (6.0-8.3) g/dL Albumin 3.9 (3.3-5.0) g/dL Amylase 69 (18-89) U/L Urine Color Yellow (Yellow) Urine Appearance Clear (Clear) Urine pH 5.5 (5.0-8.5) Ur Specific [place] <= 1.005 (1.000-1.030) Urine Protein Negative (Negative) Urine Glucose (UA) Negative (Negative) Urine Ketones Negative (Negative) Urine Blood Trace-intact A (Negative) Urine Nitrite Negative (Negative) Urine Bilirubin Negative (Negative) Urine Urobilinogen 0.2 (0.2-1.0) Ur Leukocyte Esterase Negative (Negative) Urine RBC 0-2 (0-2) Urine WBC 0-2 (0-5) Ur Squamous Epith Cells None (None-Few) Urine Bacteria None (None) Discharge Plan Discharge Clinical Impression: Abdominal pain Patient Disposition: Home, Self-Care Condition: Stable Additional Instructions: Metamucil or FiberCon regularly, increase your fluid intake, avoid alcohol, follow up with regular doctor next 3-5 days. Return here as needed. Activity Level: No Restrictions Discharge Diet: High Fiber Prescriptions: No Action methylprednisolone [Medrol (Chuck)] 4 mg tablets,dose pack See Rx Instructions .ROUTE .COMPLEX Qty: 21 0RF Rx Instructions: orally per package directions estradiol 1 mg tablet 1 mg PO QDAY Qty: 90 1RF valacyclovir 1 gram tablet 1,000 mg PO QDAY Qty: 30 0RF Rx Instructions: For treatment of suppression Follow Up/Referrals: Ashley Moreno DO [Primary Care Provider, Family Practice] Stand Alone Forms: MyHealth Info Instructions
[2025-04-20 12:25] LABS: Lactate* 1.4 mmol/L (0.5-1.9)
[2025-04-20 12:30] LABS: Hematocrit 38.6 % (33.0-51.0); Hemoglobin* 13.1 gm/dL (12.0-16.0); Immature Granulocytes Abs Auto 0.06 K/uL (0.00-0.30); Immature Granulocytes Pct Auto 0.8 %; Lymphocytes Absolute Auto 2.31 K/uL (0.90-2.90); Mean Corpuscular HGB Conc 34 gm/dL (32-36); Mean Corpuscular Hemoglobin 35 pg (26-34); Mean Corpuscular Volume 104 fL (80-100); RDW Coefficient of Variation % 11.7 % (11.5-15.5); Red Blood Count 3.72 m/uL (4.00-5.20); White Blood Count* 7.70 K/uL (4.50-11.00)
[2025-04-20 12:32] LABS: Slide Review Reflex No
[2025-04-20 12:49] LABS: Chloride* 103 mmol/L (96-114)
[2025-04-20 12:50] LABS: Albumin* 3.9 g/dL (3.3-5.0); Potassium* 4.0 mmol/L (3.6-5.1); Sodium* 132 mmol/L (135-149)
[2025-04-20 12:53] LABS: Alanine Aminotransferase* 23 U/L (4-35); Alkaline Phosphatase* 46 U/L (40-150); Anion Gap 6 mEq/L (7-15); Aspartate Amino Transferase* 24 U/L (12-35); Bilirubin Direct* 0.1 mg/dL (0.0-0.5); Bilirubin Total* 0.2 mg/dL (0.1-1.5); Blood Urea Nitrogen* 15 mg/dL (7-30); Calcium* 9.4 mg/dL (8.4-10.6); Carbon Dioxide* 23 mmol/L (20-32); Creatinine* 0.6 mg/dL (0.5-1.5); Est. Creatinine Clearance* 99.18; Estimated Glomerular Filt Rate 106 ml/min; Glucose* 101 mg/dL (60-115); Total Protein* 6.3 g/dL (6.0-8.3)
[2025-04-20 13:35] LABS: Appearance Urine Clear (Clear)
== END 2025-04-20 14:19 | disposition home or self-care (01) ==
PROVIDERS: Emergency Provider Family Medicine; PCP Family Medicine
DX: R10.9 Unspecified abdominal pain (principal)
CPT/HCPCS: 36415; 74176; 80048; 80076; 81001; 82150; 83605; 85025; 86140; 87086; 94761; 99284; 99285; J7030

== ENCOUNTER 2025-06-09 14:40 | Outpatient (CLI) | payer BC, SELFPAY | END 2025-06-09 14:41 | disposition home or self-care (01) | LOC: NFLDREF 06-12 05:24 | PROVIDERS: PCP Family Medicine; Referring Provider Family Medicine; Visit Provider Family Medicine | DX: Z01.818 Encounter for other preprocedural examination (principal) | CPT/HCPCS: 80048 ==